=== PATIENT | female | born 1970 | race Caucasian/White ===

== ENCOUNTER 2020-02-21 09:50 | Inpatient (IN) ==
[2020-02-21] MEDS ORDERED: IOPAMIDOL 100 ML BOTTLE IV ONE ×2 (09:51→18:37)
[2020-02-21] MEDS ORDERED: 0.9 % SODIUM CHLORIDE 1,000 ML IV ONE (10:07)
[2020-02-21] MEDS ORDERED: fentaNYL 12 MCG PATCH TOPICAL ONE (10:27)
[2020-02-21] MEDS ORDERED: PROMETHAZINE 25 MG/ML VIAL IV ONE (10:27)
--- NOTE | 2020-02-21 10:56 | Emergency Department Note ---
Abdominal Pain HPI General Chief Complaint: Abdominal Pain Stated Complaint: abdominal pain Time Seen by Provider: 02/21/20 10:04 Source: EMS Mode of arrival: ambulatory Limitations: no limitations History of Present Illness HPI Narrative: Narrative: 49-year-old female with known metastatic lung cancer comes in for abdominal pain. She was recently discharged from [facility] after a bout of pneumonia last week. She was doing well on a fentanyl patch in the hospital but they did not discharge her on it and instead she is taking oxycodone for pain but this is incompletely controlling her pain. Her Zofran is not working for nausea and her omeprazole is not working for her heartburn. She is on chemotherapy at [facility]. She is requiring 5 L of oxygen via facemask at home-she continues to require that here. She has significant nausea and is having trouble keeping oral down. She has not taken her morning medicine yet Related Data Home Medications Medication Instructions Recorded Confirmed nystatin 100,000 unit/mL oral 500,000 unit PO ONCE ml 01/19/20 01/28/20 suspension oxygen #1 ea 01/19/20 01/28/20 rivaroxaban 20 mg tablet 20 mg PO QDAY 01/19/20 02/21/20 dexamethasone 6 mg PO BID 02/21/20 02/21/20 glipizide 5 mg PO QDAY 02/21/20 02/21/20 insulin glargine [Lantus Solostar 5 unit SUBCUT QPM 02/21/20 02/21/20 U-100 Insulin] insulin lispro 6 unit SUBCUT TID 02/21/20 02/21/20 melatonin 5 mg PO HS PRN 02/21/20 02/21/20 nicotine 1 patch TRANSDERMAL Q24H 02/21/20 02/21/20 omeprazole magnesium [Acid Curing Oven Attendant 20 mg PO QDAY 02/21/20 02/21/20 (omeprazole)] oxycodone 10 mg PO Q12H 02/21/20 02/21/20 torsemide 20 mg PO QDAY 02/21/20 02/21/20 Previous Rx's Medication Instructions Recorded ipratropium 0.5 mg-albuterol 3 mg 3 ml INHALATION BID PRN #90 ml 01/19/20 (2.5 mg base)/3 mL nebulization soln ondansetron 8 mg disintegrating 8 mg PO Q8H PRN #30 tab 01/19/20 tablet oxycodone-acetaminophen 5 mg-325 1 - 2 tab PO Q4-6HP PRN #30 tab 01/19/20 mg tablet spironolactone 25 mg tablet 25 mg PO QDAY #30 tab 01/20/20 Allergies Allergy/AdvReac Type Severity Reaction Status Date / Time quetiapine [From Seroquel] Allergy Severe Hallucinati Verified 02/21/20 09:56 ng Review of Systems ROS ROS Narrative: Narrative: All systems ED: reviewed and negative except as stated. [facility] Narrative Patient History Narrative: Narrative: Medical/Surgical/Family History All Active Problems (Updated 02/21/20 @ 16:09 by Rocky Zelaya MD) Pneumonia (Acute) Tachycardia (Acute) Pulmonary embolism (Chronic) Anxiety (Chronic) History of blood clots (Chronic 11/2019) Liver disease (Chronic ~11/2019) Anxiety (Acute) Cancer related pain (Acute) Metastatic non-small cell lung cancer (Acute) Lytic bone lesions on xray (Chronic) Chronic back pain greater than 3 months duration (Acute) Fatigue (Acute) Weakness of both legs (Acute) Reactive depression (Acute) Obesity (BMI 30-39.9) (Acute) COPD (chronic obstructive pulmonary disease) (Chronic) Chronic anticoagulation (Chronic) Obesity (BMI 30.0-34.9) (Chronic) Sepsis (Acute) Hypoxia (Acute) Pneumonia (Acute) Sinus tachycardia (Acute) Hyponatremia (Acute) Neutropenia (Acute) Anemia associated with chemotherapy (Acute) Hypoproteinemia (Acute) Pulmonary edema (Acute) Elevated BUN (Acute) Steroid-induced diabetes mellitus (Acute) Abdominal pain (Acute) Full code status (Acute) Medical History Acute dehydration (Inactive) Acute hypokalemia (Inactive) Anxiety (Chronic) Cellulitis (Resolved) Chronic anticoagulation (Chronic) Rivaroxaban for pulmonary emboli diagnosed November 2019 Constipation (Inactive) COPD (chronic obstructive pulmonary disease) (Chronic) History of blood clots (Chronic 11/2019) Liver disease (Chronic ~11/2019) Obesity (BMI 30.0-34.9) (Chronic) Pneumonia (Inactive) Respiratory failure (Inactive) Syncope and collapse (Resolved) Surgical History History of cholecystectomy (Resolved) Status post breast reduction (Resolved) Family History Father Diabetes Heart attack Sister Thyroid disease Social History Smoking Status: Former smoker Alcohol Intake Frequency: does not drink Substance Use: does not use Exam Narrative Narrative: Narrative: Appears to be quite uncomfortable and ill. She is wearing facemask oxygen and is moving around quite a bit. Normocephalic atraumatic. Conjunctive a clear sclerae white nonicteric. No nasal discharge or congestion. Oropharynx with dry buccal mucosa. Heart is tachycardic in the 140s per her rhythm strip. Does look like a sinus tachycardia. I am unable to hear a murmur. Lungs anteriorly appear to be moving air but I cannot hear well at the bases. Abdomen is soft grossly diffusely tender. No peritoneal signs or guarding. No pedal edema. +2 radial pulse. Alert and able to answer questions General Limitations: no limitations Course Vital Signs Vital signs: Vital Signs Temperature 97.0 F 02/21/20 09:51 Pulse Rate 145 H 02/21/20 09:51 Respiratory Rate 18 02/21/20 09:51 Blood Pressure 108/66 02/21/20 09:51 Pulse Oximetry (%) 100 02/21/20 09:51 Temperature 97.0 F 02/21/20 09:51 Pulse Rate 131 H 02/21/20 15:16 Respiratory Rate 19 02/21/20 15:34 Blood Pressure 123/81 02/21/20 15:31 Pulse Oximetry (%) 98 02/21/20 15:16 [facility] MDM Narrative Medical decision making narrative: Narrative: She has several problems here today including inadequate control of her cancer symptoms which include nausea pain heartburn. Complicating this she also has respiratory issues having recently recovered from pneumonia up at [facility]. Differential diagnosis includes worsening cancer plus or minus possibly worsening pneumonia and chemotherapy associated symptoms. We will order laboratory start IV fluids continue her oxygen check x-rays as well. We will start a fentanyl patch at 12 mcg and use Phenergan for nausea She is leukopenic and her lactic acid is up but we did give her IV fluids. Procalcitonin is elevated as well. Discussed case with Dr. Devi, oncologist up at [facility] in [place]. He advised me the patient just completed ch emotherapy and was at her mabrella in terms of leukopenia. She did receive a dose of Aranesp. He advised me to rule out sepsis/pneumonia-it is noted the patient is not febrile but her lactic acid and procalcitonin are up. X-ray could be interpreted as possible pneumonia. We will order CT scan of the chest abdomen and pelvis I reevaluated the patient and note that she is very somnolent-after taking her home medicine of oxycodone and getting a fentanyl patch here, the Phenergan for nausea has made her very sleepy. She is resting comfortably. Her heart beat is still in the 140s and 50s-her oncologist notes that she typically lives in the 120s and 30s so he is not overly concerned about that. I did write for a dose of Rocephin; we will get blood cultures as well Her pulse came down to the 120s and 30s after getting fluids but she started having pain again in her belly. Her oxygen levels came up as well to the high 90s and we were able to take her off supplemental oxygen. We will continue treatment of her pain. Repeat lactic acid after getting 2 L of fluid was still 3.2. CT scan showed pneumonia in addition to chronic findings-see full report I discussed the situation with Dr. Mendoza, our hospitalist, who agreed except the patient for further care and evaluation in the hospital. I also discussed the situation with the patient and her . They are agreeable for coming in with IV antibiotics for monitoring and treatment. Lab Data Lab results reviewed: Yes I reviewed the patient's lab results. Result diagrams: 02/21/20 10:28 02/21/20 10:28 Labs: Lab Results 02/21/20 02/21/20 02/21/20 Range/Units 10:27 10:28 10:28 WBC 0.5 L* (4.50-11.00) K/mcL RBC 3.56 L (3.59-5.38) M/mcL Hgb 10.2 L (11.2-15.7) g/dL Hct 30.2 L (34.1-44.9) % MCV 84.8 (80.0-100.0) fL MCH 28.7 (26.0-34.0) pg MCHC 33.8 (31.0-36.0) g/dL RDW 10.2 L (11.5-14.5) % Plt Count 78 L (140-440) K/mcL MPV 10.2 (7.4-10.4) fL Total Counted 100 Seg Neutrophils % 17 L (38-78) % Band Neutrophils % Not Reportable Lymphocytes % 78 H (15-49) % Monocytes % (Manual) 4 (1-12) % Reactive Lymphocytes 1 (0-2) % Platelet Estimate Decreased (NORMAL) RBC Morphology Normal (NORMAL) VBG Lactic Acid (0.5-2.0) mmol/L Sodium 134 (133-145) mmol/L Potassium 3.7 (3.3-5.1) mmol/L Chloride 98 (96-108) mmol/L Carbon Dioxide 19 L (22-30) mmol/L Anion Gap 17.0 H (8-16) BUN 35 H (6-20) mg/dl Creatinine 1.0 (0.6-1.1) mg/dl GFR Calculation 67 Glucose 249 H (70-105) mg/dL Calcium 8.6 (8.6-10.4) mg/dl Total Bilirubin 0.7 (0.0-1.0) mg/dL AST 10 (0-37) U/l ALT 26 (0-40) U/l Alkaline Phosphatase 101 (39-117) U/L Troponin T (0-0.03) ng/ml Total Protein 5.9 (5.9-8.4) gm/dL Albumin 3.1 L (3.2-5.2) gm/dL Globulin 2.8 (2.2-3.7) gm/dL Albumin/Globulin Ratio 1.1 (1.0-2.3) Lipase 8 (7-60) U/L Procalcitonin (<0.10) ng/mL Urine Color Urine Appearance Urine pH (5.0-9.0) Ur Specific Henderson (1.000-1.035) Urine Protein (NEG) mg/dL Urine Glucose (UA) (NEG) mg/dL Urine Ketones (NEG) mg/dL Urine Occult Blood (<0.03) mg/dL Urine Nitrate (NEG) Urine Bilirubin (NEG) mg/dL Urine Urobilinogen (NEG) mg/dL Ur Leukocyte Esterase (NEG) /uL Urine RBC (0-1) /hpf Urine WBC (0-4) /hpf Ur Squamous Epith Cells (0-4) /hpf Urine Bacteria (0) /hpf Hyaline Casts (0-2) /lpf Urine Mucus (0) /hpf Ur Culture Indicated? 02/21/20 02/21/20 02/21/20 Range/Units 10:30 10:32 10:40 WBC (4.50-11.00) K/mcL RBC (3.59-5.38) M/mcL Hgb (11.2-15.7) g/dL Hct (34.1-44.9) % MCV (80.0-100.0) fL MCH (26.0-34.0) pg MCHC (31.0-36.0) g/dL RDW (11.5-14.5) % Plt Count (140-440) K/mcL MPV (7.4-10.4) fL Total Counted Seg Neutrophils % (38-78) % Band Neutrophils % Lymphocytes % (15-49) % Monocytes % (Manual) (1-12) % Reactive Lymphocytes (0-2) % Platelet Estimate (NORMAL) RBC Morphology (NORMAL) VBG Lactic Acid 3.1 H (0.5-2.0) mmol/L Sodium (133-145) mmol/L Potassium (3.3-5.1) mmol/L Chloride (96-108) mmol/L Carbon Dioxide (22-30) mmol/L Anion Gap (8-16) BUN (6-20) mg/dl Creatinine (0.6-1.1) mg/dl GFR Calculation Glucose (70-105) mg/dL Calcium (8.6-10.4) mg/dl Total Bilirubin (0.0-1.0) mg/dL AST (0-37) U/l ALT (0-40) U/l Alkaline Phosphatase (39-117) U/L Troponin T 0.02 (0-0.03) ng/ml Total Protein (5.9-8.4) gm/dL Albumin (3.2-5.2) gm/dL Globulin (2.2-3.7) gm/dL Albumin/Globulin Ratio (1.0-2.3) Lipase (7-60) U/L Procalcitonin 4.01 H (<0.10) ng/mL Urine Color Urine Appearance Urine pH (5.0-9.0) Ur Specific Henderson (1.000-1.035) Urine Protein (NEG) mg/dL Urine Glucose (UA) (NEG) mg/dL Urine Ketones (NEG) mg/dL Urine Occult Blood (<0.03) mg/dL Urine Nitrate (NEG) Urine Bilirubin (NEG) mg/dL Urine Urobilinogen (NEG) mg/dL Ur Leukocyte Esterase (NEG) /uL Urine RBC (0-1) /hpf Urine WBC (0-4) /hpf Ur Squamous Epith Cells (0-4) /hpf Urine Bacteria (0) /hpf Hyaline Casts (0-2) /lpf Urine Mucus (0) /hpf Ur Culture Indicated? 02/21/20 02/21/20 Range/Units 14:15 14:43 WBC (4.50-11.00) K/mcL RBC (3.59-5.38) M/mcL Hgb (11.2-15.7) g/dL Hct (34.1-44.9) % MCV (80.0-100.0) fL MCH (26.0-34.0) pg MCHC (31.0-36.0) g/dL RDW (11.5-14.5) % Plt Count (140-440) K/mcL MPV (7.4-10.4) fL Total Counted Seg Neutrophils % (38-78) % Band Neutrophils % Lymphocytes % (15-49) % Monocytes % (Manual) (1-12) % Reactive Lymphocytes (0-2) % Platelet Estimate (NORMAL) RBC Morphology (NORMAL) VBG Lactic Acid 3.2 H (0.5-2.0) mmol/L Sodium (133-145) mmol/L Potassium (3.3-5.1) mmol/L Chloride (96-108) mmol/L Carbon Dioxide (22-30) mmol/L Anion Gap (8-16) BUN (6-20) mg/dl Creatinine (0.6-1.1) mg/dl GFR Calculation Glucose (70-105) mg/dL Calcium (8.6-10.4) mg/dl Total Bilirubin (0.0-1.0) mg/dL AST (0-37) U/l ALT (0-40) U/l Alkaline Phosphatase (39-117) U/L Troponin T (0-0.03) ng/ml Total Protein (5.9-8.4) gm/dL Albumin (3.2-5.2) gm/dL Globulin (2.2-3.7) gm/dL Albumin/Globulin Ratio (1.0-2.3) Lipase (7-60) U/L Procalcitonin (<0.10) ng/mL Urine Color Yellow Urine Appearance Clear Urine pH 5.0 (5.0-9.0) Ur Specific Henderson > 1.060 H (1.000-1.035) Urine Protein 30 A (NEG) mg/dL Urine Glucose (UA) 150 A (NEG) mg/dL Urine Ketones Neg (NEG) mg/dL Urine Occult Blood Neg (<0.03) mg/dL Urine Nitrate Neg (NEG) Urine Bilirubin Neg (NEG) mg/dL Urine Urobilinogen Neg (NEG) mg/dL Ur Leukocyte Esterase Neg (NEG) /uL Urine RBC 0 (0-1) /hpf Urine WBC 7 H (0-4) /hpf Ur Squamous Epith Cells 5 H (0-4) /hpf Urine Bacteria 0 (0) /hpf Hyaline Casts 1 (0-2) /lpf Urine Mucus Few (0) /hpf Ur Culture Indicated? No Radiology Data Radiology results reviewed: Yes I reviewed the patient's radiology results. Radiology results narrative: X-ray of the chest showed possible enlarging right upper lobe pneumonia X-ray of the abdomen shows no acute finding CT scan of the chest abdomen pelvis shows worsening pneumonia along with her lung mass. Query mass on the kidney Discharge Plan Patient/Caregiver Discharge Instructions Pt seen by [employer]/PA only: No Clinical Impression: Cancer related pain, Metastatic non-small cell lung cancer, Tachycardia Pneumonia Qualifiers: Pneumonia type: due to unspecified organism Laterality: bilateral Lung location: lower lobe of lung Qualified Code(s): J18.9 - Pneumonia, unspecified organism Patient Disposition: Xfer As Inpt ([facility]) Condition: Fair Follow up with: Deepali Trotter ARNP [Primary Care Provider] - Prescriptions: No Action Xarelto 20 mg tablet 20 mg PO QDAY RF: 0 nystatin 100,000 unit/mL suspension 500,000 unit PO ONCE RF: 0 ipratropium-albuterol 0.5 mg-3 mg(2.5 mg base)/3 mL solution for nebulization 3 ml INHALATION BID PRN (Reason: shortness of breath) Qty: 90 RF: 0 (DME) oxygen Qty: 1 RF: 0 oxycodone-acetaminophen [Percocet] 5-325 mg tablet 1 - 2 tab PO Q4-6HP PRN (Reason: pain (scale score 7-10)) Qty: 30 RF: 0 ondansetron 8 mg tablet,disintegrating 8 mg PO Q8H PRN (Reason: nausea and vomiting) Qty: 30 RF: 0 spironolactone 25 mg tablet 25 mg PO QDAY Qty: 30 RF: 0 dexamethasone 4 mg tablet 6 mg PO BID RF: 0 glipizide 5 mg Tablet 5 mg PO QDAY RF: 0 insulin lispro 100 unit/mL Insulin Pen 6 unit SUBCUT TID RF: 0 Lantus Solostar U-100 Insulin 100 unit/mL (3 mL) Insulin Pen 5 unit SUBCUT QPM RF: 0 melatonin 5 mg Tablet 5 mg PO HS PRN (Reason: Insomnia) RF: 0 nicotine 21 mg/24 hr Patch 24 Hour 1 patch TRANSDERMAL Q24H RF: 0 omeprazole magnesium [Acid Curing Oven Attendant (omeprazole)] 20 mg Capsule,Delayed Release(Dr/Ec) 20 mg PO QDAY RF: 0 oxycodone 10 mg Tablet,Oral Only,Ext.Rel.12 Hr 10 mg PO Q12H RF: 0 torsemide 20 mg Tablet 20 mg PO QDAY RF: 0
[2020-02-21 11:22] LABS: ALT/SGPT 26 U/l (0-40); AST/SGOT 10 U/l (0-37); Albumin 3.1 gm/dL (3.2-5.2); Albumin/Globulin Ratio 1.1 (1.0-2.3); Alkaline Phosphatase 101 U/L (39-117); Bilirubin,Total 0.7 mg/dL (0.0-1.0); Blood Urea Nitrogen 35 mg/dl (6-20); Calcium 8.6 mg/dl (8.6-10.4); Carbon Dioxide 19 mmol/L (22-30); Chloride 98 mmol/L (96-108); Globulin 2.8 gm/dL (2.2-3.7); Glomerular Filtration Rate 67; Glucose 249 mg/dL (70-105)
[2020-02-21 11:37] LABS: Hematocrit 30.2 % (34.1-44.9); Hemoglobin 10.2 g/dL (11.2-15.7); Mean Cell Volume 84.8 fL (80.0-100.0); Mean Corpuscular HGB Conc 33.8 g/dL (31.0-36.0); Platelet Count 78 K/mcL (140-440); RBC 3.56 M/mcL (3.59-5.38); Red Cell Distribution Width 10.2 % (11.5-14.5); WBC 0.5 K/mcL (4.50-11.00)
[2020-02-21] MEDS: 0.9 % SODIUM CHLORIDE 1,000 ML IV ONE ×2 (11:48→12:38)
[2020-02-21 12:05] LABS: Lymphocytes % 78 % (15-49); Mean Platelet Volume 10.2 fL (7.4-10.4); Monocytes % (Manual) 4 % (1-12); Platelet Estimate DECREASED (NORMAL); RBC Morphology NORMAL (NORMAL); Reactive Lymphocytes 1 % (0-2); Segmented Neutrophils % 17 % (38-78)
[2020-02-21] MEDS ORDERED: cefTRIAXone 2 GM in DEXTROSE 5% IN WATER 50 ML IV ONE (12:07)
--- NOTE | 2020-02-21 12:15 | XRay Report ---
CLINICAL INFORMATION: pneumonia COMPARISON: None. FINDINGS: Heart size, mediastinum and pulmonary vessels are normal. Small rounded pneumonia present in the right apex. Possible developing infiltrate in the left midlung. No effusion. IMPRESSION: Small rounded pneumonia in the right apex. Possible developing left midlung pneumonia. Interpreted and Authenticated by: Jett Perez 02/21/20
--- NOTE | 2020-02-21 12:15 | XRay Report ---
CLINICAL INFORMATION: abdominal pain COMPARISON: None. FINDINGS: The stool gas pattern is unremarkable. There is no free air, soft tissue mass, organomegaly or pathologic calcification. Vertebroplasty changes at L1 and L3 appreciated IMPRESSION: Normal abdomen Interpreted and Authenticated by: Jett Perez 02/21/20
--- NOTE | 2020-02-21 15:01 | Cat Scan Report ---
CLINICAL INFORMATION: Leukopenia pneumonia and possible sepsis COMPARISON: None. TECHNIQUE: Enteric contrast was utilized. 80 cc of Isovue-370 were injected intravenously, and 50 seconds later 2.5 mm helical slices were obtained from the lung apices through the subtrochanteric regions of the femurs. Following reconstruction, 2.5 mm sagittal, coronal and axial reformatted images were processed and reviewed at multiple windows and levels. 7 mm MIP reconstructions were obtained through the lungs to optimize nodule detection.The exam was performed using radiation dose optimization techniques including, but not limited to, automated exposure control, adjustment of the mA and/or kV according to patient size and use of iterative reconstruction technique. FINDINGS: Pulmonary parenchymal windows show 5.3 x 3.5 cm lobulated solid mass in the right hilum which encases and narrows the right upper lobe bronchus. It also partially encases the superior right bronchus intermedius. It is suspicious for primary lung carcinoma. A 7.5 mm right lower lobe nodule (image 57) , a 15 mm nodule in the lateral basilar segment of the left lower lobe (image 74) and a 9 mm nodule in the medial basilar segment of the left lower lobe are also seen. Large groundglass/alveolar infiltrate throughout the posterior right lower lobe and moderate patchy groundglass infiltrates scattered throughout the right upper and middle lobes are appreciated. On the left side, there is a large groundglass/alveolar infiltrate in the left lower lobe including the superior, medial posterior and lateral basilar segments. No effusions. The mediastinal windows show the pulmonary arteries are suboptimally opacified, but no gross evidence of embolus. Thoracic aorta is normal in diameter. Moderately enlarged lymph nodes in the right hilum and the inferior mediastinum including the AP window, subcarinal, pericarinal region AP window and azygous region ranging up to 15 mm. These may represent a combination of benign reactive lymph nodes and metastatic adenopathy. There is a 9 mm diverticulum projecting from the right lateral wall the mid thoracic esophagus. The esophagus is otherwise normal. The heart is normal in size - no plaque in the coronary arteries. Abdominal images show minimal fatty change within the liver, but no focal lesions. The gallbladder is surgically absent. Intrahepatic and common bile ducts are normal caliber: CBD is 5 mm. There is a vague 20 mm low-attenuation lesion inferior pole the right kidney may represent primary renal cell carcinoma. The remainder of both kidneys, adrenal glands, spleen, pancreas and aorta, including aortic branches are normal in size and duration attenuation without focal lesion. A few mildly enlarged retroperitoneal lymph nodes in the periaortic and pericaval region ranging up to 16 mm. No free air or free fluid. Pelvic images show anteflexed uterus which is normal in size: 7 x 4 cm. 16 mm cyst seen in the left ovary a 8 mm cyst seen in the right ovary. The stomach, small large bowel are normal in caliber. There is equivocal thickening of the wall and plicae circulares folds within multiple jejunal loops in the left mid abdomen compatible with submucosal edema or. No other abnormality within the small or large bowel. The appendix is unremarkable. Stomach is grossly normal. Bone windows show no metastases or other significant osseous abnormality. Vertebroplasty has arrested mild L1 and L3 compression fractures. There are 5-6 nodules within Camper's fascia which range up to 20 mm. These likely represent epidermoid or dermoid cysts. Metastases are possible less likely IMPRESSION: 1. 5.3 cm lobulated right hilar mass encasing and narrowing the upper lobe bronchus and partially encasing the bronchus intermedius. It is suspicious for primary lung carcinoma. Moderately enlarged lymph nodes in the right hilum and lower mediastinum are either metastatic or represent benign reactive adenopathy. Scattered bilateral lower lobe nodules are more likely granulomas than metastases. Scattered nodules within Camper's fascia of the anterior abdominal wall are more likely benign epidermoid cysts rather than metastases 2. Large alveolar infiltrate throughout the posterior right lower lobe. Moderate patchy infiltrates in the right upper and middle lobes. Large alveolar infiltrate throughout the posterior left lower lobe including superior, medial basilar and posterior basilar segments. Suspect aspiration or pneumonia. 3. 20 mm low-attenuation lesion inferior pole the right kidney. This could potentially represent primary renal cell carcinoma or metastases. Suggest ultrasound to exclude a cyst. Interpreted and Authenticated by: Jett Perez 02/21/20
[2020-02-21 15:45] LABS: Appearance,Urine CLEAR; Bacteria,Urine 0 /hpf (0); Bilirubin,Urine NEG (NEG); Color,Urine YELLOW; Culture Indicated,Urine NO; Glucose,Urine (UA) 150 mg/dL (NEG); Ketones,Urine NEG (NEG); Leukocyte Esterase,Urine NEG /uL (NEG); Mucus,Urine FEW /hpf (0); Nitrate,Urine NEG (NEG); Protein,Urine 30 mg/dL (NEG); Specific Gravity,Urine > 1.060 (1.000-1.035); Urine Blood NEG mg/dL (<0.03); Urine Hyaline Cast 1 /lpf (0-2); Urine RBC 0 /hpf (0-1); Urine Squamous Epithelial Cell 5 /hpf (0-4); Urine WBC 7 /hpf (0-4); Urobilinogen,Urine NEG (NEG)
[2020-02-21] MEDS ORDERED: HYDROmorphone 0.5 MG/0.5 ML SYRINGE IV PRN (16:08)
[2020-02-21] MEDS ORDERED: IPRATROPIUM/ALBUTEROL 3 ML AMPUL.NEB NEB PRN ×2 (17:16→18:37)
[2020-02-21] MEDS ORDERED: ONDANSETRON 4 MG/2 ML VIAL IV PRN ×2 (17:16→18:37)
[2020-02-21] MEDS ORDERED: morphine 4 MG/ML VIAL IV PRN (17:16)
[2020-02-21] MEDS ORDERED: ACETAMINOPHEN 325 MG TABLET PO PRN ×2 (17:16→18:37)
[2020-02-21] MEDS ORDERED: VANCOMYCIN PER PHARMACY IV ONE ×2 (17:24→18:37)
[2020-02-21] MEDS ORDERED: traMADol 50 MG TABLET PO PRN (17:24)
[2020-02-21] MEDS ORDERED: NON FORMULARY MEDICATION 1 DOSE MISCELL (Melatonin 5 MG) PO PRN (17:28)
[2020-02-21] MEDS ORDERED: PIPERACILLIN SODIUM/TAZOBACTAM 3.375 GM in DEXTROSE 5% IN WATER 50 ML IV SCH (17:30)
[2020-02-21] MEDS ORDERED: RIVAROXABAN 20 MG TABLET PO SCH (17:30)
[2020-02-21] MEDS ORDERED: fentaNYL 12 MCG PATCH TOPICAL SCH (17:30)
[2020-02-21] MEDS ORDERED: DEXTROSE 50% 50 ML VIAL IV PRN ×2 (17:30→18:37)
[2020-02-21] MEDS ORDERED: DEXTROSE 31 GM ORAL.SUSP PO PRN ×2 (17:30→18:37)
[2020-02-21] MEDS ORDERED: 0.9 % SODIUM CHLORIDE 1,000 ML IV SCH (17:30)
--- NOTE | 2020-02-21 17:34 | Internal Med History&Physical ---
HPI History of Present Illness Patient information: Note initiated : 02/21/20 at 5:33 pm Service Date, if different from initiated Date: [] Patient: Shirley Novoa 49 y/o F admitted on for abdominal pain. Chief Complaint: [] History of present illness: Ms. Novoa is a 49 year old F with a past medical history of metastatic lung cancer, history of pulmonary embolisms, and COPD who presented to the ER due to abdominal pain and diarrhea x 2 days. As per patient and , she started to have upper abdominal pain associated with nausea, vomiting, and diarrhea. The pain is constant, sharp in nature and 4-8 out of 10 in severity. No radiation. She has been having 4-5 times bowel movements a day with the very loose yellow stool. Patient got pneumonia 3 weeks ago for which patient was hospitalized to [facility] in [place] for 2 weeks. Over there she was given IV antibiotics. She was just discharged to home last week. She was diagnosed with metastatic non-small cell lung cancer in October 2019. She received chemotherapy recently. In the ER, chest x-ray showed bilateral pneumonia. When I saw this patient in the ER, other than the symptoms mentioned above, she also complained of fatigue. Otherwise she denied headache, dizziness, chest pain, dysuria, or changes in vision. Review of Systems All systems: reviewed and no additional remarkable complaints except as stated PFSH PFSH All Active Problems Pneumonia (Acute) Tachycardia (Acute) Pulmonary embolism (Chronic) Anxiety (Chronic) History of blood clots (Chronic 11/2019) Liver disease (Chronic ~11/2019) Anxiety (Acute) Cancer related pain (Acute) Metastatic non-small cell lung cancer (Acute) Lytic bone lesions on xray (Chronic) Chronic back pain greater than 3 months duration (Acute) Fatigue (Acute) Weakness of both legs (Acute) Reactive depression (Acute) Obesity (BMI 30-39.9) (Acute) COPD (chronic obstructive pulmonary disease) (Chronic) Chronic anticoagulation (Chronic) Obesity (BMI 30.0-34.9) (Chronic) Sepsis (Acute) Hypoxia (Acute) Pneumonia (Acute) Sinus tachycardia (Acute) Hyponatremia (Acute) Neutropenia (Acute) Anemia associated with chemotherapy (Acute) Hypoproteinemia (Acute) Pulmonary edema (Acute) Elevated BUN (Acute) Steroid-induced diabetes mellitus (Acute) Abdominal pain (Acute) Full code status (Acute) Medical History Acute dehydration (Inactive) Acute hypokalemia (Inactive) Anxiety (Chronic) Cellulitis (Resolved) Chronic anticoagulation (Chronic) Rivaroxaban for pulmonary emboli diagnosed November 2019 Constipation (Inactive) COPD (chronic obstructive pulmonary disease) (Chronic) History of blood clots (Chronic 11/2019) Liver disease (Chronic ~11/2019) Obesity (BMI 30.0-34.9) (Chronic) Pneumonia (Inactive) Respiratory failure (Inactive) Syncope and collapse (Resolved) Surgical History History of cholecystectomy (Resolved) Status post breast reduction (Resolved) Family History Father Diabetes Heart attack Sister Thyroid disease Social History marital status: smoking status: Former smoker alcohol intake frequency: does not drink substance use type: does not use MEDS/ALLERGIES Home Medications and Allergies Home Medications Medication Instructions Recorded Confirmed Type ipratropium 0.5 mg-albuterol 3 mg 3 ml INHALATION BID PRN #90 ml 01/19/20 02/21/20 Rx (2.5 mg base)/3 mL nebulization soln nystatin 100,000 unit/mL oral 500,000 unit PO ONCE ml 01/19/20 01/28/20 History suspension ondansetron 8 mg disintegrating 8 mg PO Q8H PRN #30 tab 01/19/20 02/21/20 Rx tablet oxycodone-acetaminophen 5 mg-325 1 - 2 tab PO Q4-6HP PRN #30 tab 01/19/20 02/21/20 Rx mg tablet oxygen #1 ea 01/19/20 01/28/20 History rivaroxaban 20 mg tablet 20 mg PO QDAY 01/19/20 02/21/20 History spironolactone 25 mg tablet 25 mg PO QDAY #30 tab 01/20/20 02/21/20 Rx dexamethasone 6 mg PO BID 02/21/20 02/21/20 History glipizide 5 mg PO QDAY 02/21/20 02/21/20 History insulin glargine [Lantus Solostar 5 unit SUBCUT QPM 02/21/20 02/21/20 History U-100 Insulin] insulin lispro 6 unit SUBCUT TID 02/21/20 02/21/20 History melatonin 5 mg PO HS PRN 02/21/20 02/21/20 History nicotine 1 patch TRANSDERMAL Q24H 02/21/20 02/21/20 History omeprazole magnesium [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 20 mg PO QDAY 02/21/20 02/21/20 History (omeprazole)] oxycodone 10 mg PO Q12H 02/21/20 02/21/20 History torsemide 20 mg PO QDAY 02/21/20 02/21/20 History Allergies Allergy/AdvReac Type Severity Reaction Status Date / Time quetiapine [From Seroquel] Allergy Severe Hallucinati Verified 02/21/20 09:56 ng EXAM Constitutional Vitals: Temp Pulse Resp BP Pulse Ox 97.0 F 139 H 20 110/75 100 02/21/20 09:51 02/21/20 17:01 02/21/20 17:01 02/21/20 17:01 02/21/20 17:01 Additional findings Additional findings: General -sleepy and lethargic Eyes - PERRLA, EOM intact ENT no rhinorrhea, no noticeable or palpable swelling, no redness or rash around throat or on face Neck supple, no JVD, no thyromegaly Respiratory: Lungs -coarse breathing sounds and crackles. Cardiovascular - RRR no m/r/g, GI - Normal bowel sounds, no distended, soft. Extremeties - No edema, cyanosis or clubbing Hemo/lymphatic/immune no lymphadenopathy Neurological Alert but lethargic, no focal neurological deficits. Psychiatry flat affect DATA Data Completed and Pending Labs: Labs from last 24 hours 02/21/20 02/21/20 02/21/20 14:43 14:15 10:40 WBC RBC Hgb Hct MCV MCH MCHC RDW Plt Count MPV Total Counted Seg Neutrophils % Band Neutrophils % Lymphocytes % Monocytes % (Manual) Reactive Lymphocytes Platelet Estimate RBC Morphology VBG Lactic Acid 3.2 H 3.1 H Sodium Potassium Chloride Carbon Dioxide Anion Gap BUN Creatinine GFR Calculation Glucose Calcium Total Bilirubin AST ALT Alkaline Phosphatase Troponin T Total Protein Albumin Globulin Albumin/Globulin Ratio Lipase Procalcitonin Urine Color Yellow Urine Appearance Clear Urine pH 5.0 Ur Specific [place] > 1.060 H Urine Protein 30 A Urine Glucose (UA) 150 A Urine Ketones Neg Urine Occult Blood Neg Urine Nitrate Neg Urine Bilirubin Neg Urine Urobilinogen Neg Ur Leukocyte Esterase Neg Urine RBC 0 Urine WBC 7 H Ur Squamous Epith Cells 5 H Urine Bacteria 0 Hyaline Casts 1 Urine Mucus Few Ur Culture Indicated? No 02/21/20 02/21/20 02/21/20 10:32 10:30 10:28 WBC RBC Hgb Hct MCV MCH MCHC RDW Plt Count MPV Total Counted Seg Neutrophils % Band Neutrophils % Lymphocytes % Monocytes % (Manual) Reactive Lymphocytes Platelet Estimate RBC Morphology VBG Lactic Acid Sodium 134 Potassium 3.7 Chloride 98 Carbon Dioxide 19 L Anion Gap 17.0 H BUN 35 H Creatinine 1.0 GFR Calculation 67 Glucose 249 H Calcium 8.6 Total Bilirubin 0.7 AST 10 ALT 26 Alkaline Phosphatase 101 Troponin T 0.02 Total Protein 5.9 Albumin 3.1 L Globulin 2.8 Albumin/Globulin Ratio 1.1 Lipase Procalcitonin 4.01 H Urine Color Urine Appearance Urine pH Ur Specific [place] Urine Protein Urine Glucose (UA) Urine Ketones Urine Occult Blood Urine Nitrate Urine Bilirubin Urine Urobilinogen Ur Leukocyte Esterase Urine RBC Urine WBC Ur Squamous Epith Cells Urine Bacteria Hyaline Casts Urine Mucus Ur Culture Indicated? 02/21/20 02/21/20 10:28 10:27 WBC 0.5 L* RBC 3.56 L Hgb 10.2 L Hct 30.2 L MCV 84.8 MCH 28.7 MCHC 33.8 RDW 10.2 L Plt Count 78 L MPV 10.2 Total Counted 100 Seg Neutrophils % 17 L Band Neutrophils % Not Reportable Lymphocytes % 78 H Monocytes % (Manual) 4 Reactive Lymphocytes 1 Platelet Estimate Decreased RBC Morphology Normal VBG Lactic Acid Sodium Potassium Chloride Carbon Dioxide Anion Gap BUN Creatinine GFR Calculation Glucose Calcium Total Bilirubin AST ALT Alkaline Phosphatase Troponin T Total Protein Albumin Globulin Albumin/Globulin Ratio Lipase 8 Procalcitonin Urine Color Urine Appearance Urine pH Ur Specific [place] Urine Protein Urine Glucose (UA) Urine Ketones Urine Occult Blood Urine Nitrate Urine Bilirubin Urine Urobilinogen Ur Leukocyte Esterase Urine RBC Urine WBC Ur Squamous Epith Cells Urine Bacteria Hyaline Casts Urine Mucus Ur Culture Indicated? A/P Narrative A/P Narrative: 1. Acute and chronic hypoxic respiratory failure Pulse ox Oxygen therapy, keep oxygen saturation greater than 92% 2. Pneumonia, HCA/CAP/aspiration? CT chest - "Large alveolar infiltrate throughout the posterior right lower lobe. Moderate patchy infiltrates in the right upper and middle lobes. Large alveolar infiltrate throughout the posterior left lower lobe including superior, medial basilar and posterior basilar segments. Suspect aspiration or pneumonia" Blood culture Sputum culture MRSA screen Vanco (dosing by pharmacy) and Zosyn 3. Metastatic non-small cell lung cancer CT chest, abdomen and pelvis showed evidence of metastatic cancer Follow with PCP and oncologist 4. Hx of PE on chronic anticoagulation Continue Xarelto 5. COPD Presumed stable Inhalers 6. 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 Continue dexamethasone Diabetic diet Continue Lantus 5 units daily Insulin sliding scale Glipizide is on hold 7. Acute gastroenteritis Stool study including fever IV fluid 8. Dehydration 2 L normal saline was given in the ER Continue IV fluid 9. Pancytopenia - WBC 0.5 Reverse precaution Repeat a CBC in the morning 10. DVT prophylaxis: On Xarelto 11. 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
[2020-02-21] MEDS ORDERED: MELATONIN 3 MG TABLET PO PRN (17:45)
[2020-02-21] MEDS ORDERED: VANCOMYCIN PER PHARMACY IV SCH ×2 (17:45→18:37)
[2020-02-21] MEDS ORDERED: VANCOMYCIN 1,500 MG in 0.9 % SODIUM CHLORIDE 500 ML IV SCH (19:00)
[2020-02-21] MEDS: 0.9 % SODIUM CHLORIDE 1,000 ML IV SCH (19:02)
[2020-02-21] MEDS ORDERED: SENNOSIDES 1 TABLET PO SCH (21:00)
[2020-02-21] MEDS ORDERED: INSULIN LISPRO 1 UNIT/0.01 ML UNIT SQ SCH (21:00)
[2020-02-21] MEDS ORDERED: DEXAMETHASONE 4 MG TABLET PO SCH (21:00)
[2020-02-21] MEDS ORDERED: DOCUSATE SODIUM 100 MG CAPSULE PO SCH (21:00)
[2020-02-21] MEDS ORDERED: INSULIN GLARGINE, HUMAN 1 UNIT/0.01 ML SQ SCH (21:00)
[2020-02-21] MEDS: VANCOMYCIN 1,500 MG in 0.9 % SODIUM CHLORIDE 500 ML IV SCH (21:21)
[2020-02-21] MEDS: METOPROLOL TARTRATE 25 MG TABLET PO SCH (21:26)
[2020-02-21] MEDS: DEXAMETHASONE 4 MG TABLET PO SCH (21:27)
[2020-02-21] MEDS: SENNOSIDES 1 TABLET PO SCH (21:27)
[2020-02-21] MEDS: 0.9 % SODIUM CHLORIDE 10 ML SYRINGE IV SCH (21:27)
[2020-02-21] MEDS: DOCUSATE SODIUM 100 MG CAPSULE PO SCH (21:27)
[2020-02-21] MEDS: INSULIN GLARGINE, HUMAN 1 UNIT/0.01 ML SQ SCH (21:42)
[2020-02-21] MEDS: INSULIN LISPRO 1 UNIT/0.01 ML UNIT SQ SCH (21:43)
[2020-02-21] MEDS ORDERED: 0.9 % SODIUM CHLORIDE 10 ML SYRINGE IV SCH (22:00)
[2020-02-21] MEDS ORDERED: METOPROLOL TARTRATE 5 MG/5 ML VIAL IV ONE ×2 (23:36→23:48)
[2020-02-21] MEDS ORDERED: ZOLPIDEM 5 MG TABLET PO ONE (23:37)
[2020-02-21] MEDS ORDERED: ZOLPIDEM 5 MG TABLET ONE (23:48)
[2020-02-21] MEDS: PIPERACILLIN SODIUM/TAZOBACTAM 3.375 GM in DEXTROSE 5% IN WATER 50 ML IV SCH (23:59)
[2020-02-22] MEDS: 0.9 % SODIUM CHLORIDE 10 ML SYRINGE IV SCH ×3 (04:15→21:51)
[2020-02-22] MEDS: PIPERACILLIN SODIUM/TAZOBACTAM 3.375 GM in DEXTROSE 5% IN WATER 50 ML IV SCH ×4 (06:01→23:58)
[2020-02-22 07:08] LABS: ALT/SGPT 20 U/l (0-40); AST/SGOT 9 U/l (0-37); Albumin 2.3 gm/dL (3.2-5.2); Albumin/Globulin Ratio 0.7 (1.0-2.3); Alkaline Phosphatase 81 U/L (39-117); Bilirubin,Total 0.4 mg/dL (0.0-1.0); Blood Urea Nitrogen 26 mg/dl (6-20); Calcium 8.2 mg/dl (8.6-10.4); Carbon Dioxide 20 mmol/L (22-30); Chloride 99 mmol/L (96-108); Globulin 3.1 gm/dL (2.2-3.7); Glomerular Filtration Rate 102; Glucose 140 mg/dL (70-105); Phosphorous 3.1 mg/dL (2.7-4.5)
[2020-02-22] MEDS ORDERED: PANTOPRAZOLE 40 MG TABLET PO SCH (07:30)
[2020-02-22] MEDS: PANTOPRAZOLE 40 MG TABLET PO SCH (07:42)
[2020-02-22] MEDS: INSULIN LISPRO 1 UNIT/0.01 ML UNIT SQ SCH ×4 (07:45→21:47)
[2020-02-22] MEDS: 0.9 % SODIUM CHLORIDE 1,000 ML IV SCH ×4 (07:46→21:51)
[2020-02-22 07:47] LABS: Basophils # (Auto) 0 K/mcL (0.00-0.30); Basophils % (Auto) 0 % (0.0-2.0); Eosinophils # (Auto) 0 K/mcL (0.00-0.70); Eosinophils % (Auto) 0 % (0.0-7.0); Granulocytes % (Auto) 13.3 % (38.0-78.0); Hematocrit 23.4 % (34.1-44.9); Hemoglobin 7.8 g/dL (11.2-15.7); Lymphocytes # (Auto) 0.34 K/mcL (1.50-4.80); Lymphocytes % (Auto) 75.6 % (15.5-49.0); Mean Cell Volume 85.7 fL (80.0-100.0); Mean Corpuscular HGB Conc 33.3 g/dL (31.0-36.0); Mean Platelet Volume 10.5 fL (7.4-10.4); Monocytes # (Auto) 0.02 K/mcL (0.10-0.90); Monocytes % (Auto) 4.4 % (1.0-12.0); Platelet Count 51 K/mcL (140-440); RBC 2.73 M/mcL (3.59-5.38); Red Cell Distribution Width 16.4 % (11.5-14.5); WBC 0.5 K/mcL (4.50-11.00)
[2020-02-22] MEDS ORDERED: MAGNESIUM SULFATE 8.12 MEQ in DEXTROSE 5% IN WATER 50 ML IV ONE (08:00)
[2020-02-22 08:27] LABS: Estimated Average Glucose(eAG) 189 mg/dL; Hemoglobin A1C 8.2 % HGB (4.0-6.0)
[2020-02-22] MEDS: VANCOMYCIN 1,500 MG in 0.9 % SODIUM CHLORIDE 500 ML IV SCH ×2 (09:40→21:47)
[2020-02-22] MEDS: MUPIROCIN OINT 2% 22GM NARES SCH ×2 (09:41→21:48)
[2020-02-22] MEDS: traMADol 50 MG TABLET PO PRN ×2 (09:41→16:55)
[2020-02-22] MEDS: DEXAMETHASONE 4 MG TABLET PO SCH ×2 (09:42→21:48)
[2020-02-22] MEDS: METOPROLOL TARTRATE 25 MG TABLET PO SCH ×2 (09:43→21:49)
[2020-02-22] MEDS: RIVAROXABAN 20 MG TABLET PO SCH (09:43)
[2020-02-22] MEDS: DOCUSATE SODIUM 100 MG CAPSULE PO SCH ×2 (09:43→21:51)
--- NOTE | 2020-02-22 11:24 | Internal Med Progress Note ---
SUBJECTIVE Subjective Patient information: Note initiated : 02/22/20 at 11:18 am Service Date, if different from initiated Date: [] Patient: Shirley Novoa 49 y/o F admitted on 02/21/20 for abdominal pain. Chief Complaint: [] History of present illness: Ms. Novoa is a 49 year old F with a past medical history of metastatic lung cancer, history of pulmonary embolisms, and COPD who presented to the ER due to abdominal pain and diarrhea x 2 days. As per patient and , she started to have upper abdominal pain associated with nausea, vomiting, and diarrhea. The pain is constant, sharp in nature and 4-8 out of 10 in severity. No radiation. She has been having 4-5 times bowel movements a day with the very loose yellow stool. Patient got pneumonia 3 weeks ago for which patient was hospitalized to [facility] in [place] for 2 weeks. Over there she was given IV antibiotics. She was just discharged to home last week. She was diagnosed with metastatic non-small cell lung cancer in October 2019. She received chemotherapy recently. In the ER, chest x-ray showed bilateral pneumonia. When I saw this patient in the ER, other than the symptoms mentioned above, she also complained of fatigue. Otherwise she denied headache, dizziness, chest pain, dysuria, or changes in vision. 02/21 Patient still feels tired but better than yesterday. Denies fever, chills. Patient still has diarrhea. Patient had one bowel movement with loose stool this morning. C. difficile negative Tachycardia >100. WBC 0.5, platelet 51 MRSA screen positive -precaution contact and decolonization Review of Systems All systems: reviewed and no additional remarkable complaints except as stated Constitutional Vitals: Vital Signs Temp Pulse Resp BP Pulse Ox 97.3 F 102 H 20 103/55 92 02/22/20 07:28 02/22/20 07:45 02/22/20 07:45 02/22/20 07:28 02/22/20 07:45 Period Temp Pulse Resp BP Sys/Plaza Pulse Ox Last 24 Hr 97.3 F-98.7 F 102-150 14-26 95-125/55-88 92-100 Intake and Output 02/21/20 02/22/20 02/22/20 21:59 05:59 13:59 Intake Total 1000 1625 1050 Output Total 200 685 500 Balance 800 940 550 Weight 82.871 kg Intake & Output: Intake & Output 02/21/20 02/22/20 02/22/20 21:59 05:59 13:59 Intake Total 1000 1625 1050 Output Total 200 685 500 Balance 800 940 550 Weight 82.871 kg Intake: IV 3496 988 5418 Sodium Chloride 0.9% 1,000 ml @ 1000 1000 100 mls/hr IV .Q10H [facility] Rx#: [id number] Zosyn 3.375 gm In Dextrose 5% 50 50 in Water 50 ml @ 100 mls/hr IV Q6H [facility] Rx#:[id number] Vancomycin 1,500 mg In Sodium 500 Chloride 0.9% 500 ml @ 333.3 mls/hr IV Q12H [facility] Rx#: [id number] Oral 1075 Output: Void Amount 200 375 150 Urine/Stool Mix 350 Stool 310 Other: Urine Appearance Clear Clear Urine Color Dark Michelle Dark Michelle Dark Yellow Urine Odor Strong Stool Size Small Moderate Stool Color Brown Brown Black Green Stool Consistency Liquid Liquid # Bowel Movements 1 Additional findings Additional findings: General -sleepy and lethargic Eyes - PERRLA, EOM intact ENT no rhinorrhea, no noticeable or palpable swelling, no redness or rash around throat or on face Neck supple, no JVD, no thyromegaly Respiratory: Lungs -coarse breathing sounds and crackles. Cardiovascular - RRR no m/r/g, GI - Normal bowel sounds, no distended, soft, diffuse tenderness (significantly improved) Extremeties - No edema, cyanosis or clubbing Hemo/lymphatic/immune no lymphadenopathy Neurological Alert but lethargic, no focal neurological deficits. Psychiatry flat affect OBJ DATA Labs CBC & Chem 7: 02/22/20 05:25 02/22/20 05:25 Labs: Abnormal Lab Results 02/22/20 02/22/20 02/21/20 05:25 05:25 14:43 WBC 0.5 L* RBC 2.73 L Hgb 7.8 L Hct 23.4 L RDW 16.4 H Plt Count 51 L MPV 10.5 H Gran % 13.3 L Lymph % (Auto) 75.6 H Gran # 0.06 L* Lymph # (Auto) 0.34 L [place] # (Auto) 0.02 L Seg Neutrophils % Lymphocytes % VBG Lactic Acid Carbon Dioxide 20 L Anion Gap BUN 26 H Glucose 140 H Hemoglobin A1c 8.2 H Calcium 8.2 L Total Protein 5.4 L Albumin 2.3 L Albumin/Globulin Ratio 0.7 L Procalcitonin Ur Specific [place] > 1.060 H Urine Protein 30 A Urine Glucose (UA) 150 A Urine WBC 7 H Ur Squamous Epith Cells 5 H 02/21/20 02/21/20 02/21/20 14:15 10:40 10:30 WBC RBC Hgb Hct RDW Plt Count MPV Gran % Lymph % (Auto) Gran # Lymph # (Auto) [place] # (Auto) Seg Neutrophils % Lymphocytes % VBG Lactic Acid 3.2 H 3.1 H Carbon Dioxide Anion Gap BUN Glucose Hemoglobin A1c Calcium Total Protein Albumin Albumin/Globulin Ratio Procalcitonin 4.01 H Ur Specific [place] Urine Protein Urine Glucose (UA) Urine WBC Ur Squamous Epith Cells 02/21/20 02/21/20 10:28 10:28 WBC 0.5 L* RBC 3.56 L Hgb 10.2 L Hct 30.2 L RDW 10.2 L Plt Count 78 L MPV Gran % Lymph % (Auto) Gran # Lymph # (Auto) [place] # (Auto) Seg Neutrophils % 17 L Lymphocytes % 78 H VBG Lactic Acid Carbon Dioxide 19 L Anion Gap 17.0 H BUN 35 H Glucose 249 H Hemoglobin A1c Calcium Total Protein Albumin 3.1 L Albumin/Globulin Ratio Procalcitonin Ur Specific [place] Urine Protein Urine Glucose (UA) Urine WBC Ur Squamous Epith Cells Meds: Medications Acetaminophen (Tylenol) 650 mg PO Q6HP PRN; Protocol PRN Reason: Per Pain Protocol/Fever > 101 Albuterol/Ipratropium (Duoneb) 3 ml NEB Q6HP PRN PRN Reason: Shortness Of Breath Dexamethasone (Decadron) 6 mg PO BID [facility] Last Admin: 02/22/20 09:42 Dose: 6 mg Documented by: Dextrose (Dextrose 50%) 0 ml IV UD PRN PRN Reason: Hypoglycemia Diagnostic Test (Pha) (Accu-Chek) 1 each FS ACHS [facility] Last Admin: 02/22/20 07:43 Dose: 1 each Documented by: Docusate Sodium (Colace) 100 mg PO BID [facility] Last Admin: 02/22/20 09:43 Dose: Not Given Documented by: Fentanyl (Duragesic) 12 mcg TOPICAL Q72H [facility] Glucose (Insta-Glucose) 15 gm PO PRN PRN PRN Reason: Hypoglycemia Sodium Chloride (Sodium Chloride 0.9%) 1,000 mls @ 100 mls/hr IV .Q10H [facility] Last Admin: 02/22/20 07:46 Dose: 100 mls/hr Documented by: Piperacillin Sod/Tazobactam (Sod 3.375 gm/ Dextrose) 50 mls @ 100 mls/hr IV Q6H [facility]; Protocol Last Infusion: 02/22/20 06:31 Dose: Infused Documented by: Vancomycin HCl 1,500 mg/ (Sodium Chloride) 500 mls @ 333.3 mls/hr IV Q12H [facility] Last Admin: 02/22/20 09:40 Dose: 333.3 mls/hr Documented by: Insulin Glargine (Lantus) 5 unit SQ QPM [facility] Last Admin: 02/21/20 21:42 Dose: 5 units Documented by: Insulin Human Lispro (Humalog) 0 unit SQ ACHS [facility]; Protocol Last Admin: 02/22/20 07:45 Dose: 1 units Documented by: Melatonin (Melatonin 3mg Tablet) 6 mg PO HSP PRN PRN Reason: Insomnia Metoprolol Tartrate (Lopressor) 12.5 mg PO BID [facility] Last Admin: 02/22/20 09:43 Dose: 12.5 mg Documented by: Morphine Sulfate (Morphine) 2 mg IV Q4HP PRN; Protocol PRN Reason: Per Pain Protocol Mupirocin (Bactroban Oint 2%) 1 dose NARES BID [facility] Last Admin: 02/22/20 09:41 Dose: 1 dose Documented by: Ondansetron HCl (Zofran) 4 mg IV Q6HP PRN PRN Reason: Nausea And Vomiting Pantoprazole Sodium (Protonix) 40 mg PO QAMAC [facility] Last Admin: 02/22/20 07:42 Dose: Not Given Documented by: Rivaroxaban (Xarelto) 20 mg PO QDAY [facility] Last Admin: 02/22/20 09:43 Dose: 20 mg Documented by: Senna (Senokot) 2 tab PO HS [facility] Last Admin: 02/21/20 21:27 Dose: 2 tab Documented by: Sodium Chloride (Saline Flush) 10 ml IV Q8 [facility] Last Admin: 02/22/20 04:15 Dose: Not Given Documented by: Tramadol HCl (Ultram) 50 mg PO Q6HP PRN; Protocol PRN Reason: Pain Last Admin: 02/22/20 09:41 Dose: 50 mg Documented by: Vancomycin HCl (Vancomycin Per Pharmacy) 1 order IV UD [facility]; Protocol A/P Narrative A/P Narrative: 1. Acute and chronic hypoxic respiratory failure Pulse ox Oxygen therapy, keep oxygen saturation greater than 92% 2. Pneumonia, HCA/CAP/aspiration? CT chest - "Large alveolar infiltrate throughout the posterior right lower lobe. Moderate patchy infiltrates in the right upper and middle lobes. Large alveolar infiltrate throughout the posterior left lower lobe including superior, medial basilar and posterior basilar segments. Suspect aspiration or pneumonia" Blood culture no growth Sputum culture pending MRSA screen positive -decolonization Vanco (dosing by pharmacy) and Zosyn 3. Metastatic non-small cell lung cancer CT chest, abdomen and pelvis showed evidence of metastatic cancer Follow with PCP and oncologist 4. Hx of PE on chronic anticoagulation Continue Xarelto 5. COPD Presumed stable Inhalers 6. 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 Continue dexamethasone Diabetic diet Continue Lantus 5 units daily Insulin sliding scale Glipizide is on hold 7. Acute gastroenteritis Improving Stool study including fever IV fluid 8. Dehydration 2 L normal saline was given in the ER Continue IV fluid 9. Pancytopenia - WBC 0.5 Reverse precaution Repeat a CBC in the morning 10. DVT prophylaxis: On Xarelto 11. CODE STATUS: Client Experience Specialist Spent With Patient Time: Total time spent is greater than 50% in coordination of care (as documented) at patient's floor/unit and/or counseling patient: QUALITY VTE Deep Vein Thrombosis/Pulmonary Embolism Present on Admission: No
[2020-02-22] MEDS: morphine 4 MG/ML VIAL IV PRN (12:16)
[2020-02-22] MEDS: INSULIN GLARGINE, HUMAN 1 UNIT/0.01 ML SQ SCH (21:47)
[2020-02-22] MEDS: SENNOSIDES 1 TABLET PO SCH (21:50)
[2020-02-23] MEDS: traMADol 50 MG TABLET PO PRN ×4 (00:11→23:16)
[2020-02-23] MEDS: 0.9 % SODIUM CHLORIDE 1,000 ML IV SCH ×3 (00:12→20:44)
[2020-02-23] MEDS: morphine 4 MG/ML VIAL IV PRN ×3 (03:57→21:53)
[2020-02-23] MEDS: PIPERACILLIN SODIUM/TAZOBACTAM 3.375 GM in DEXTROSE 5% IN WATER 50 ML IV SCH ×4 (05:41→23:17)
[2020-02-23] MEDS: 0.9 % SODIUM CHLORIDE 10 ML SYRINGE IV SCH ×3 (05:41→21:54)
[2020-02-23 06:48] LABS: ALT/SGPT 18 U/l (0-40); AST/SGOT 7 U/l (0-37); Albumin 2.4 gm/dL (3.2-5.2); Albumin/Globulin Ratio 0.9 (1.0-2.3); Alkaline Phosphatase 70 U/L (39-117); Bilirubin,Total 0.2 mg/dL (0.0-1.0); Calcium 8.5 mg/dl (8.6-10.4); Carbon Dioxide 18 mmol/L (22-30); Chloride 101 mmol/L (96-108); Globulin 2.6 gm/dL (2.2-3.7); Glomerular Filtration Rate 76; Glucose 154 mg/dL (70-105)
[2020-02-23 07:01] LABS: Blood Urea Nitrogen 20 mg/dl (6-20)
[2020-02-23] MEDS: INSULIN LISPRO 1 UNIT/0.01 ML UNIT SQ SCH ×4 (07:01→20:57)
[2020-02-23] MEDS: PANTOPRAZOLE 40 MG TABLET PO SCH (07:03)
[2020-02-23 08:47] LABS: Basophils # (Auto) 0 K/mcL (0.00-0.30); Basophils % (Auto) 0 % (0.0-2.0); Eosinophils # (Auto) 0 K/mcL (0.00-0.70); Eosinophils % (Auto) 0 % (0.0-7.0); Granulocytes % (Auto) 14.3 % (38.0-78.0); Hematocrit 19.7 % (34.1-44.9); Hemoglobin 6.6 g/dL (11.2-15.7); Lymphocytes % (Auto) 81.6 % (15.5-49.0); Mean Cell Volume 87.2 fL (80.0-100.0); Mean Corpuscular HGB Conc 33.5 g/dL (31.0-36.0); Mean Platelet Volume 10.4 fL (7.4-10.4); Monocytes # (Auto) 0.02 K/mcL (0.10-0.90); Monocytes % (Auto) 4.1 % (1.0-12.0); Platelet Count 34 K/mcL (140-440); RBC 2.26 M/mcL (3.59-5.38); Red Cell Distribution Width 16.2 % (11.5-14.5); WBC 0.5 K/mcL (4.50-11.00)
[2020-02-23] MEDS: DEXAMETHASONE 4 MG TABLET PO SCH (09:26)
[2020-02-23] MEDS: RIVAROXABAN 20 MG TABLET PO SCH (09:26)
[2020-02-23] MEDS: METOPROLOL TARTRATE 25 MG TABLET PO SCH ×2 (09:27→21:01)
[2020-02-23] MEDS: DOCUSATE SODIUM 100 MG CAPSULE PO SCH ×2 (09:43→20:58)
[2020-02-23] MEDS: MUPIROCIN OINT 2% 22GM NARES SCH ×2 (09:43→21:01)
[2020-02-23] MEDS: VANCOMYCIN 1,500 MG in 0.9 % SODIUM CHLORIDE 500 ML IV SCH (10:42)
[2020-02-23] MEDS: POTASSIUM CHLORIDE 20 MEQ TABLET PO SCH ×3 (12:30→16:02)
[2020-02-23] MEDS ORDERED: 0.9 % SODIUM CHLORIDE 250 ML IV SCH ×2 (13:45→19:15)
--- NOTE | 2020-02-23 15:56 | Internal Med Progress Note ---
SUBJECTIVE Subjective Patient information: Note initiated : 02/23/20 at 3:55 pm Service Date, if different from initiated Date: [] Patient: Shirley Novoa 49 y/o F admitted on 02/21/20 for abdominal pain. Chief Complaint: [] Ms. Novoa is a 49 year old F with a past medical history of metastatic lung cancer, history of pulmonary embolisms, and COPD who presented to the ER due to abdominal pain and diarrhea x 2 days. As per patient and , she started to have upper abdominal pain associated with nausea, vomiting, and diarrhea. The pain is constant, sharp in nature and 4-8 out of 10 in severity. No radiation. She has been having 4-5 times bowel movements a day with the very loose yellow stool. Patient got pneumonia 3 weeks ago for which patient was hospitalized to [facility] in [place] for 2 weeks. Over there she was given IV antibiotics. She was just discharged to home last week. She was diagnosed with metastatic non-small cell lung cancer in October 2019. She received chemotherapy recently. In the ER, chest x-ray showed bilateral pneumonia. When I saw this patient in the ER, other than the symptoms mentioned above, she also complained of fatigue. Otherwise she denied headache, dizziness, chest pain, dysuria, or changes in vision. 02/21 Patient still feels tired but better than yesterday. Denies fever, chills. Patient still has diarrhea. Patient had one bowel movement with loose stool this morning. C. difficile negative Tachycardia >100. WBC 0.5, platelet 51 MRSA screen positive -precaution contact and decolonization 02/22 Today patient feels much better, stronger. Less abdominal pain. She had one bowel movement this morning. Vital signs are stable and acceptable. She is on room air to 2 L oxygen. She has been home oxygen 2 L. White blood cells 0.5, red blood cells of 2.26, platelets 34. Potassium 3.0, Hemoglobin A1c 8.2 MRSA screen was positive -isolation contact, decolonization protocol. Spoke to her oncologist Dr. Torre ([phone]) who suggested to give her 2 units of leuko-poor irradiated transfusion. He will see patient early next week. Review of Systems All systems: reviewed and no additional remarkable complaints except as stated Constitutional Vitals: Vital Signs Temp Pulse Resp BP Pulse Ox 97.6 F 82 20 120/66 90 10/01/20 12:00 02/23/20 12:00 02/23/20 12:00 02/23/20 12:00 02/23/20 12:00 Period Temp Pulse Resp BP Sys/Plaza Pulse Ox Last 24 Hr 96.5 F-98.7 F 81-97 18-22 95-120/55-72 90-96 Intake and Output 02/23/20 02/23/20 02/23/20 05:59 13:59 21:59 Intake Total 850 1100 Output Total 700 400 Balance 150 700 Intake & Output: Intake & Output 02/23/20 02/23/20 02/23/20 05:59 13:59 21:59 Intake Total 850 1100 Output Total 700 400 Balance 150 700 Intake: IV 550 1100 Sodium Chloride 0.9% 1,000 ml @ 1000 100 mls/hr IV .Q10H [facility] Rx#: [id number] Zosyn 3.375 gm In Dextrose 5% 50 100 in Water 50 ml @ 100 mls/hr IV Q6H [facility] Rx#:[id number] Vancomycin 1,500 mg In Sodium 500 Chloride 0.9% 500 ml @ 333.3 mls/hr IV Q12H [facility] Rx#: [id number] Oral 300 Output: Void Amount 300 300 Urine/Stool Mix 300 Stool 100 100 Other: Urine Appearance Clear Urine Color Pale Bright Yellow Stool Color Brown Brown Stool Consistency Watery Liquid Watery # Voids 1 # Bowel Movements 1 Additional findings Additional findings: General - Eyes - PERRLA, EOM intact ENT no rhinorrhea, no noticeable or palpable swelling, no redness or rash around throat or on face Neck supple, no JVD, no thyromegaly Respiratory: Lungs -coarse breathing sounds and crackles. Cardiovascular - RRR no m/r/g, GI - Normal bowel sounds, no distended, soft, diffuse tenderness (significantly improved) Extremeties - No edema, cyanosis or clubbing Hemo/lymphatic/immune no lymphadenopathy Neurological - A+Ox 3, no focal neurological deficits. Psychiatry flat affect OBJ DATA Labs CBC & Chem 7: 02/23/20 05:25 02/23/20 05:25 Labs: Abnormal Lab Results 02/23/20 02/23/20 02/23/20 08:02 05:25 05:25 WBC 0.5 L* RBC 2.26 L Hgb 6.6 L* Hct 19.7 L* RDW 16.2 H Plt Count 34 L* MPV Gran % 14.3 L Lymph % (Auto) 81.6 H Gran # 0.07 L* Lymph # (Auto) 0.40 L [place] # (Auto) 0.02 L Seg Neutrophils % Lymphocytes % VBG Lactic Acid Sodium 130 L Potassium 3.0 L Carbon Dioxide 18 L Anion Gap BUN Glucose 154 H Hemoglobin A1c Calcium 8.5 L Total Protein 5.0 L Albumin 2.4 L Albumin/Globulin Ratio 0.9 L Procalcitonin Ur Specific [place] Urine Protein Urine Glucose (UA) Urine WBC Ur Squamous Epith Cells Vancomycin Trough 24.9 H* 02/22/20 02/22/20 02/21/20 05:25 05:25 14:43 WBC 0.5 L* RBC 2.73 L Hgb 7.8 L Hct 23.4 L RDW 16.4 H Plt Count 51 L MPV 10.5 H Gran % 13.3 L Lymph % (Auto) 75.6 H Gran # 0.06 L* Lymph # (Auto) 0.34 L [place] # (Auto) 0.02 L Seg Neutrophils % Lymphocytes % VBG Lactic Acid Sodium Potassium Carbon Dioxide 20 L Anion Gap BUN 26 H Glucose 140 H Hemoglobin A1c 8.2 H Calcium 8.2 L Total Protein 5.4 L Albumin 2.3 L Albumin/Globulin Ratio 0.7 L Procalcitonin Ur Specific [place] > 1.060 H Urine Protein 30 A Urine Glucose (UA) 150 A Urine WBC 7 H Ur Squamous Epith Cells 5 H Vancomycin Trough 02/21/20 02/21/20 02/21/20 14:15 10:40 10:30 WBC RBC Hgb Hct RDW Plt Count MPV Gran % Lymph % (Auto) Gran # Lymph # (Auto) [place] # (Auto) Seg Neutrophils % Lymphocytes % VBG Lactic Acid 3.2 H 3.1 H Sodium Potassium Carbon Dioxide Anion Gap BUN Glucose Hemoglobin A1c Calcium Total Protein Albumin Albumin/Globulin Ratio Procalcitonin 4.01 H Ur Specific [place] Urine Protein Urine Glucose (UA) Urine WBC Ur Squamous Epith Cells Vancomycin Trough 02/21/20 02/21/20 10:28 10:28 WBC 0.5 L* RBC 3.56 L Hgb 10.2 L Hct 30.2 L RDW 10.2 L Plt Count 78 L MPV Gran % Lymph % (Auto) Gran # Lymph # (Auto) [place] # (Auto) Seg Neutrophils % 17 L Lymphocytes % 78 H VBG Lactic Acid Sodium Potassium Carbon Dioxide 19 L Anion Gap 17.0 H BUN 35 H Glucose 249 H Hemoglobin A1c Calcium Total Protein Albumin 3.1 L Albumin/Globulin Ratio Procalcitonin Ur Specific [place] Urine Protein Urine Glucose (UA) Urine WBC Ur Squamous Epith Cells Vancomycin Trough Meds: Medications Acetaminophen (Tylenol) 650 mg PO Q6HP PRN; Protocol PRN Reason: Per Pain Protocol/Fever > 101 Albuterol/Ipratropium (Duoneb) 3 ml NEB Q6HP PRN PRN Reason: Shortness Of Breath Dexamethasone (Decadron) 6 mg PO DAILY [facility] Dextrose (Dextrose 50%) 0 ml IV UD PRN PRN Reason: Hypoglycemia Diagnostic Test (Pha) (Accu-Chek) 1 each FS ACHS [facility] Last Admin: 02/23/20 12:03 Dose: 1 each Documented by: Docusate Sodium (Colace) 100 mg PO BID [facility] Last Admin: 02/23/20 09:43 Dose: Not Given Documented by: Fentanyl (Duragesic) 12 mcg TOPICAL Q72H [facility] Glucose (Insta-Glucose) 15 gm PO PRN PRN PRN Reason: Hypoglycemia Sodium Chloride (Sodium Chloride 0.9%) 1,000 mls @ 100 mls/hr IV .Q10H [facility] Last Admin: 02/23/20 09:47 Dose: 100 mls/hr Documented by: Piperacillin Sod/Tazobactam (Sod 3.375 gm/ Dextrose) 50 mls @ 100 mls/hr IV Q6H [facility]; Protocol Last Infusion: 02/23/20 12:35 Dose: Infused Documented by: Sodium Chloride (Sodium Chloride 0.9%) 250 mls @ 20 mls/hr IV .[id number] [facility] Stop: 02/24/20 02:14 Insulin Glargine (Lantus) 5 unit SQ QPM [facility] Last Admin: 02/22/20 21:47 Dose: 5 units Documented by: Insulin Human Lispro (Humalog) 0 unit SQ ACHS [facility]; Protocol Last Admin: 02/23/20 12:04 Dose: Not Given Documented by: Melatonin (Melatonin 3mg Tablet) 6 mg PO HSP PRN PRN Reason: Insomnia Last Admin: 02/22/20 21:50 Dose: 6 mg Documented by: Metoprolol Tartrate (Lopressor) 12.5 mg PO BID [facility] Last Admin: 02/23/20 09:27 Dose: 12.5 mg Documented by: Morphine Sulfate (Morphine) 2 mg IV Q4HP PRN; Protocol PRN Reason: Per Pain Protocol Last Admin: 02/23/20 03:57 Dose: 2 mg Documented by: Mupirocin (Bactroban Oint 2%) 1 dose NARES BID [facility] Last Admin: 02/23/20 09:43 Dose: 1 dose Documented by: Ondansetron HCl (Zofran) 4 mg IV Q6HP PRN PRN Reason: Nausea And Vomiting Pantoprazole Sodium (Protonix) 40 mg PO QAMAC [facility] Last Admin: 02/23/20 07:03 Dose: Not Given Documented by: Potassium Chloride (Kdur) 20 meq PO Q2 [facility] Stop: 02/23/20 16:01 Last Admin: 02/23/20 14:00 Dose: Not Given Documented by: Rivaroxaban (Xarelto) 20 mg PO QDAY [facility] Last Admin: 02/23/20 09:26 Dose: 20 mg Documented by: Senna (Senokot) 2 tab PO HS [facility] Last Admin: 02/22/20 21:50 Dose: Not Given Documented by: Sodium Chloride (Saline Flush) 10 ml IV Q8 [facility] Last Admin: 02/23/20 13:14 Dose: Not Given Documented by: Tramadol HCl (Ultram) 50 mg PO Q6HP PRN; Protocol PRN Reason: Pain Last Admin: 02/23/20 07:00 Dose: 50 mg Documented by: Vancomycin HCl (Vancomycin Per Pharmacy) 1 order IV UD [facility]; Protocol A/P Narrative A/P Narrative: 1. Acute and chronic hypoxic respiratory failure Pulse ox Oxygen therapy, keep oxygen saturation greater than 92% 2. Pneumonia, HCA/CAP/aspiration? CT chest - "Large alveolar infiltrate throughout the posterior right lower lobe. Moderate patchy infiltrates in the right upper and middle lobes. Large alveolar infiltrate throughout the posterior left lower lobe including superior, medial basilar and posterior basilar segments. Suspect aspiration or pneumonia" Blood culture no growth Sputum culture pending MRSA screen positive -decolonization Vanco (dosing by pharmacy) and Zosyn 3. Metastatic non-small cell lung cancer CT chest, abdomen and pelvis showed evidence of metastatic cancer Follow with PCP and oncologist 4. Hx of PE on chronic anticoagulation Continue Xarelto 5. COPD Presumed stable Inhalers 6. 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 Continue dexamethasone Diabetic diet Continue Lantus 5 units daily Insulin sliding scale Glipizide is on hold 7. Acute gastroenteritis Improving Stool study including fever IV fluid Discussed with the patient who would like to be referred to GI after discharge 8. Dehydration 2 L normal saline was given in the ER Continue IV fluid 9. Pancytopenia - WBC 0.5 Reverse precaution White blood cells 0.5, red blood cells of 2.26, platelets 34. Spoke to her oncologist Dr. Torre ([phone]) who suggested to give her 2 units of leuko-poor irradiated transfusion. He will see patient early next week. Repeat a CBC in the morning 10. Positive for MRSA screen Precaution contact Decolonization protocol 11. DVT prophylaxis: On Xarelto 12. 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
[2020-02-23] MEDS: POTASSIUM CHLORIDE 20 MEQ/15 ML ML PO SCH ×2 (17:08→20:43)
[2020-02-23] MEDS ORDERED: ONDANSETRON 4 MG/2 ML VIAL IV PRN (19:15)
[2020-02-23] MEDS ORDERED: VANCOMYCIN PER PHARMACY IV SCH (19:15)
[2020-02-23] MEDS ORDERED: IPRATROPIUM/ALBUTEROL 3 ML AMPUL.NEB NEB PRN (19:15)
[2020-02-23] MEDS ORDERED: DEXTROSE 50% 50 ML VIAL IV PRN (19:15)
[2020-02-23] MEDS ORDERED: IOPAMIDOL 100 ML BOTTLE IV ONE (19:15)
[2020-02-23] MEDS ORDERED: DEXTROSE 31 GM ORAL.SUSP PO PRN (19:15)
[2020-02-23] MEDS ORDERED: MELATONIN 3 MG TABLET PO PRN (19:15)
[2020-02-23] MEDS ORDERED: ACETAMINOPHEN 325 MG TABLET PO PRN (19:15)
[2020-02-23] MEDS ORDERED: SENNOSIDES 1 TABLET PO SCH (21:00)
[2020-02-23] MEDS ORDERED: INSULIN GLARGINE, HUMAN 1 UNIT/0.01 ML SQ SCH (21:00)
[2020-02-23] MEDS ORDERED: POTASSIUM CHLORIDE 20 MEQ/15 ML ML PO SCH (21:00)
[2020-02-24] MEDS: morphine 4 MG/ML VIAL IV PRN ×3 (02:50→19:17)
[2020-02-24] MEDS: PIPERACILLIN SODIUM/TAZOBACTAM 3.375 GM in DEXTROSE 5% IN WATER 50 ML IV SCH ×3 (05:50→17:39)
[2020-02-24] MEDS: 0.9 % SODIUM CHLORIDE 10 ML SYRINGE IV SCH ×3 (05:50→21:07)
[2020-02-24 05:58] LABS: Basophils # (Auto) 0 K/mcL (0.00-0.30); Basophils % (Auto) 0 % (0.0-2.0); Eosinophils # (Auto) 0 K/mcL (0.00-0.70); Eosinophils % (Auto) 0 % (0.0-7.0); Granulocytes % (Auto) 16.2 % (38.0-78.0); Hematocrit 28.7 % (34.1-44.9); Hemoglobin 9.8 g/dL (11.2-15.7); Lymphocytes # (Auto) 0.92 K/mcL (1.50-4.80); Lymphocytes % (Auto) 82.9 % (15.5-49.0); Mean Cell Volume 86.7 fL (80.0-100.0); Mean Corpuscular HGB Conc 34.1 g/dL (31.0-36.0); Mean Platelet Volume 10.5 fL (7.4-10.4); Monocytes # (Auto) 0.01 K/mcL (0.10-0.90); Monocytes % (Auto) 0.9 % (1.0-12.0); Platelet Count 24 K/mcL (140-440); RBC 3.31 M/mcL (3.59-5.38); Red Cell Distribution Width 15.3 % (11.5-14.5); WBC 1.1 K/mcL (4.50-11.00)
[2020-02-24 06:00] LABS: ALT/SGPT 19 U/l (0-40); AST/SGOT 11 U/l (0-37); Albumin 2.4 gm/dL (3.2-5.2); Albumin/Globulin Ratio 0.8 (1.0-2.3); Alkaline Phosphatase 68 U/L (39-117); Bilirubin,Total 1.1 mg/dL (0.0-1.0); Blood Urea Nitrogen 18 mg/dl (6-20); Calcium 8.1 mg/dl (8.6-10.4); Carbon Dioxide 17 mmol/L (22-30); Chloride 101 mmol/L (96-108); Globulin 2.9 gm/dL (2.2-3.7); Glomerular Filtration Rate 67; Glucose 80 mg/dL (70-105)
[2020-02-24 06:12] LABS: Vancomycin,Random 12.2 ug/mL
[2020-02-24] MEDS ORDERED: POTASSIUM CHLORIDE 20 MEQ in DEXTROSE 5% IN WATER 250 ML IV ONE (07:27)
[2020-02-24] MEDS ORDERED: PANTOPRAZOLE 40 MG TABLET PO SCH (07:30)
[2020-02-24] MEDS ORDERED: POTASSIUM CHLORIDE 20 MEQ/15 ML ML PO ONE ×4 (08:00→16:32)
[2020-02-24] MEDS: INSULIN LISPRO 1 UNIT/0.01 ML UNIT SQ SCH ×4 (08:38→21:01)
[2020-02-24] MEDS: DOCUSATE SODIUM 100 MG CAPSULE PO SCH ×2 (08:39→21:03)
[2020-02-24] MEDS ORDERED: DEXAMETHASONE 4 MG TABLET PO SCH ×2 (09:00)
[2020-02-24] MEDS ORDERED: RIVAROXABAN 20 MG TABLET PO SCH (09:00)
[2020-02-24] MEDS ORDERED: VANCOMYCIN 1,500 MG in 0.9 % SODIUM CHLORIDE 500 ML IV SCH (09:00)
[2020-02-24] MEDS: MUPIROCIN OINT 2% 22GM NARES SCH ×2 (09:26→21:06)
[2020-02-24] MEDS: 0.9 % SODIUM CHLORIDE 1,000 ML IV SCH ×2 (09:26→19:44)
[2020-02-24] MEDS: METOPROLOL TARTRATE 25 MG TABLET PO SCH ×2 (09:30→21:04)
[2020-02-24] MEDS ORDERED: fentaNYL 12 MCG PATCH TOPICAL SCH ×2 (10:00)
[2020-02-24] MEDS ORDERED: IOPAMIDOL 100 ML BOTTLE IV ONE ×3 (12:41→16:17)
[2020-02-24] MEDS: traMADol 50 MG TABLET PO PRN ×2 (13:31→21:05)
--- NOTE | 2020-02-24 15:32 | Cat Scan Report ---
CLINICAL INFORMATION: Abdominal pain COMPARISON: Chest, abdomen and pelvic CT 02/21/2020 TECHNIQUE: Following enteric contrast, 80 cc of Isovue-370 were injected intravenously, and 60 seconds later, 0.625 mm helical slices were obtained from the mid heart through the subtrochanteric regions. Following reconstruction, 2.5 mm sagittal, coronal and axial reformatted images were processed and reviewed at bone, lung and soft tissue windows. Five minutes later, 0.625 mm helical slices were obtained from the mid heart through the kidneys and viewed at soft tissue windows.The exam was performed using radiation dose optimization techniques including, but not limited to, automated exposure control, adjustment of the mA and/or kV according to patient size and use of iterative reconstruction technique. FINDINGS: Lung bases show considerable decrease in the size and density of diffuse bilateral groundglass and alveolar infiltrates throughout both lower lobes, lingula and visualized right middle lobe. No effusions. The visualized heart is unremarkable. Abdominal images show minimal fatty change within the liver. The gallbladder is surgically absent. Intrahepatic, common hepatic and common bile ducts are moderately dilated: The common bile duct is 12 mm. This is unchanged from the prior exam. There is no evidence of stone mass or other cause for ductal obstruction the ampullary region. Post cholecystectomy papillary stenosis is suspected. The pancreas, both adrenal glands, left kidney, spleen and aorta including aortic branches are normal in size configuration and attenuation without focal lesion. There is a vague 20 mm low-attenuation focus inferior pole the right kidney which could indicate scarring or even a vague renal cell carcinoma. There is no free air, free fluid or adenopathy. Pelvic images show the bladder is normal. Uterus is anteflexed and normal in size 8 x 4 cm. Both ovaries are unremarkable. There are multiple jejunal loops in the left midabdomen which are now dilated and demonstrate moderate thickening of the wall and plicae circulares folds with edema in the adjacent mesenteric fat. There may be a transition point to decompressed ileum in the right lower quadrant. Partial obstruction is likely due to adhesion or stricture.. Colon contains normal amounts of fluid. The appendix is unremarkable. Bone windows again show vertebroplasty changes at L1 L3 arrested mild compression fractures. IMPRESSION: 1. Large bilateral alveolar infiltrates in the visualized lower lobes, right middle lobe and lingula which have worsened considerably. Consider Covid pneumonia. 2. Multiple loops of jejunum and the left mid abdomen demonstrating moderate dilatation and wall and plicae circulares folds thickening with edema in the mesenteric fat. This could indicate partial small bowel obstruction or enteritis. 3. Moderate dilatation of the common bile duct likely reflecting postcholecystectomy papillary stenosis - no change. 4. Scattered nodules within Camper's fascia stable and likely subcutaneous benign epidermoid cyst but could represent metastases. 5. Vague 14 mm low-attenuation lesion inferior pole the right kidney possible focal inflammation or less likely renal cell carcinoma. Interpreted and Authenticated by: Jett Perez 02/24/20
--- NOTE | 2020-02-24 15:51 | Internal Med Progress Note ---
SUBJECTIVE Subjective Patient information: Note initiated : 02/24/20 at 3:39 pm Service Date, if different from initiated Date: [] Patient: Shirley Novoa 49 y/o F admitted on 02/21/20 for abdominal pain. Chief Complaint: [] Interval history: Ms. Novoa is a 49 year old F with a past medical history of metastatic lung cancer, history of pulmonary embolisms, and COPD who presented to the ER due to abdominal pain and diarrhea x 2 days. As per patient and , she started to have upper abdominal pain associated with nausea, vomiting, and diarrhea. The pain is constant, sharp in nature and 4-8 out of 10 in severity. No radiation. She has been having 4-5 times bowel movements a day with the very loose yellow stool. Patient got pneumonia 3 weeks ago for which patient was hospitalized to [facility] in [place] for 2 weeks. Over there she was given IV antibiotics. She was just discharged to home last week. She was diagnosed with metastatic non-small cell lung cancer in October 2019. She received chemotherapy recently. In the ER, chest x-ray showed bilateral pneumonia. When I saw this patient in the ER, other than the symptoms mentioned above, she also complained of fatigue. Otherwise she denied headache, dizziness, chest pa in, dysuria, or changes in vision. 02/21 Patient still feels tired but better than yesterday. Denies fever, chills. Patient still has diarrhea. Patient had one bowel movement with loose stool this morning. C. difficile negative Tachycardia >100. WBC 0.5, platelet 51 MRSA screen positive -precaution contact and decolonization 02/22 Today patient feels much better, stronger. Less abdominal pain. She had one bowel movement this morning. Vital signs are stable and acceptable. She is on room air to 2 L oxygen. She has been home oxygen 2 L. White blood cells 0.5, red blood cells of 2.26, platelets 34. Potassium 3.0, Hemoglobin A1c 8.2 MRSA screen was positive -isolation contact, decolonization protocol. Spoke to her oncologist Dr. Torre ([phone]) who suggested to give her 2 units of leuko-poor irradiated transfusion. He will see patient early next week. 02/23 Complains of more abdominal pain associated with n. She has poor appetite and does not want to eat. On oxygen via aerosol mask wbc 1.1, Hb 9.8, plt 24, K2.[address] abd Spoke to oncologist Dr. Torre felt that she does not need plts transfusion at the level unless she has bleeding. 02/24 Constitutional Vitals: Vital Signs Temp Pulse Resp BP Pulse Ox 97.4 F 83 12 115/76 97 02/24/20 12:01 02/24/20 12:01 02/24/20 12:01 02/24/20 12:01 02/24/20 12:01 Period Temp Pulse Resp BP Sys/Plaza Pulse Ox Last 24 Hr 97.1 F-98.3 F 74-91 - 109-129/64-90 91-98 Intake and Output 02/24/20 02/24/20 02/24/20 05:59 13:59 21:59 Intake Total 1284 1600 Output Total 750 Balance 534 1600 Intake & Output: Intake & Output 02/24/20 02/24/20 02/24/20 05:59 13:59 21:59 Intake Total 1284 1600 Output Total 750 Balance 534 1600 Intake: IV 50 1600 Sodium Chloride 0.9% 1,000 ml @ 1000 100 mls/hr IV .Q10H [facility] Rx#: [id number] Sodium Chloride 0.9% 250 ml @ 0 20 mls/hr IV .[id number] [facility] Rx#: [id number] Zosyn 3.375 gm In Dextrose 5% 50 100 in Water 50 ml @ 100 mls/hr IV Q6H [facility] Rx#:[id number] Vancomycin 1,500 mg In Sodium 500 Chloride 0.9% 500 ml @ 333.3 mls/hr IV Q24H [facility] Rx#: [id number] Oral 600 Blood Product 634 Output: Void Amount 700 Emesis 50 Other: Urine Appearance Clear Urine Color Straw # Emeses 1 Exam: General: Alert, Awake, No acute Distress, obese Eyes/N/T: EOMI, Head/Neck: neck supple, CV: RRR, No murmurs, Pulm: rhonchi/rales b/l, no wheezing Abd: soft, mild generalized tenderness, +BS x4 Ext: no clubbing/cyanosis/edema Neuro: Alert, no focal deficits, moves all extremities, Skin: warm/dry OBJ DATA Labs CBC & Chem 7: 02/24/20 04:50 02/24/20 04:50 Labs: Abnormal Lab Results 02/24/20 02/24/20 02/23/20 04:50 04:50 08:02 WBC 1.1 L RBC 3.31 L Hgb 9.8 L Hct 28.7 L RDW 15.3 H Plt Count 24 L* MPV 10.5 H Gran % 16.2 L Lymph % (Auto) 82.9 H [place] % (Auto) 0.9 L Gran # 0.18 L* Lymph # (Auto) 0.92 L [place] # (Auto) 0.01 L Sodium Potassium 2.7 L* Carbon Dioxide 17 L BUN Glucose Hemoglobin A1c Calcium 8.1 L Total Bilirubin 1.1 H Total Protein 5.3 L Albumin 2.4 L Albumin/Globulin Ratio 0.8 L Ur Specific [place] Urine Protein Urine Glucose (UA) Urine WBC Ur Squamous Epith Cells Vancomycin Trough 24.9 H* 02/23/20 02/23/20 02/22/20 05:25 05:25 05:25 WBC 0.5 L* 0.5 L* RBC 2.26 L 2.73 L Hgb 6.6 L* 7.8 L Hct 19.7 L* 23.4 L RDW 16.2 H 16.4 H Plt Count 34 L* 51 L MPV 10.5 H Gran % 14.3 L 13.3 L Lymph % (Auto) 81.6 H 75.6 H [place] % (Auto) Gran # 0.07 L* 0.06 L* Lymph # (Auto) 0.40 L 0.34 L [place] # (Auto) 0.02 L 0.02 L Sodium 130 L Potassium 3.0 L Carbon Dioxide 18 L BUN Glucose 154 H Hemoglobin A1c Calcium 8.5 L Total Bilirubin Total Protein 5.0 L Albumin 2.4 L Albumin/Globulin Ratio 0.9 L Ur Specific [place] Urine Protein Urine Glucose (UA) Urine WBC Ur Squamous Epith Cells Vancomycin Trough 02/22/20 02/21/20 05:25 14:43 WBC RBC Hgb Hct RDW Plt Count MPV Gran % Lymph % (Auto) [place] % (Auto) Gran # Lymph # (Auto) [place] # (Auto) Sodium Potassium Carbon Dioxide 20 L BUN 26 H Glucose 140 H Hemoglobin A1c 8.2 H Calcium 8.2 L Total Bilirubin Total Protein 5.4 L Albumin 2.3 L Albumin/Globulin Ratio 0.7 L Ur Specific [place] > 1.060 H Urine Protein 30 A Urine Glucose (UA) 150 A Urine WBC 7 H Ur Squamous Epith Cells 5 H Vancomycin Trough Meds: Medications Acetaminophen (Tylenol) 650 mg PO Q6HP PRN; Protocol PRN Reason: Per Pain Protocol/Fever > 101 Albuterol/Ipratropium (Duoneb) 3 ml NEB Q6HP PRN PRN Reason: Shortness Of Breath Dexamethasone (Decadron) 6 mg PO DAILY [facility] Last Admin: 02/24/20 09:30 Dose: 6 mg Documented by: Dextrose (Dextrose 50%) 0 ml IV UD PRN PRN Reason: Hypoglycemia Diagnostic Test (Pha) (Accu-Chek) 1 each FS [facility] Last Admin: 02/24/20 13:00 Dose: 1 each Documented by: Docusate Sodium (Colace) 100 mg PO BID [facility] Last Admin: 02/24/20 08:39 Dose: Not Given Documented by: Fentanyl (Duragesic) 12 mcg TOPICAL Q72H [facility] Last Admin: 02/24/20 11:05 Dose: 12 mcg Documented by: Glucose (Insta-Glucose) 15 gm PO PRN PRN PRN Reason: Hypoglycemia Sodium Chloride (Sodium Chloride 0.9%) 1,000 mls @ 100 mls/hr IV .Q10H [facility] Last Admin: 02/24/20 09:26 Dose: 100 mls/hr Documented by: Piperacillin Sod/Tazobactam (Sod 3.375 gm/ Dextrose) 50 mls @ 100 mls/hr IV Q6H [facility]; Protocol Last Infusion: 02/24/20 13:35 Dose: Infused Documented by: Vancomycin HCl 1,500 mg/ (Sodium Chloride) 500 mls @ 333.3 mls/hr IV Q24H [facility] Last Infusion: 02/24/20 11:00 Dose: Infused Documented by: Insulin Glargine (Lantus) 5 unit SQ QPM [facility] Last Admin: 02/23/20 20:57 Dose: 5 unit Documented by: Insulin Human Lispro (Humalog) 0 unit SQ ACHS [facility]; Protocol Last Admin: 02/24/20 13:33 Dose: Not Given Documented by: Melatonin (Melatonin 3mg Tablet) 6 mg PO HSP PRN PRN Reason: Insomnia Last Admin: 02/23/20 23:16 Dose: 6 mg Documented by: Metoprolol Tartrate (Lopressor) 12.5 mg PO BID [facility] Last Admin: 02/24/20 09:30 Dose: 12.5 mg Documented by: Morphine Sulfate (Morphine) 2 mg IV Q4HP PRN; Protocol PRN Reason: Per Pain Protocol Last Admin: 02/24/20 09:29 Dose: 2 mg Documented by: Mupirocin (Bactroban Oint 2%) 1 dose NARES BID [facility] Last Admin: 02/24/20 09:26 Dose: 1 dose Documented by: Ondansetron HCl (Zofran) 4 mg IV Q6HP PRN PRN Reason: Nausea And Vomiting Last Admin: 02/24/20 02:56 Dose: 4 mg Documented by: Pantoprazole Sodium (Protonix) 40 mg PO QAMAC [facility] Last Admin: 02/24/20 09:27 Dose: 40 mg Documented by: Senna (Senokot) 2 tab PO HS [facility] Last Admin: 02/23/20 20:58 Dose: Not Given Documented by: Sodium Chloride (Saline Flush) 10 ml IV Q8 [facility] Last Admin: 02/24/20 13:36 Dose: 10 ml Documented by: Tramadol HCl (Ultram) 50 mg PO Q6HP PRN; Protocol PRN Reason: Pain Last Admin: 02/24/20 13:31 Dose: 50 mg Documented by: Vancomycin HCl (Vancomycin Per Pharmacy) 1 order IV UD [facility]; Protocol A/P Narrative A/P Narrative: A: *Acute and chronic hypoxic respiratory failure: -on 2L oxymask (wears 2L NC@home) *Pneumonia, HCA/CAP/Aspiration?: -CT chest with Large alveolar infiltrate throughout posterior RLL, Mod RUL/RML, Large alveolar infiltrate LLL -Blood culture no growth / Sputum culture pending, MRSA screen positive -decolonization -ST eval unremarkable *Ileus vs partial SBO: improved *Metastatic non-small cell lung cancer -CT chest, abdomen and pelvis showed evidence of metastatic cancer -As per patient and , she is on dexamethasone 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 diff Negative *Volume depletion: improved *Pancytopenia: -Spoke to her oncologist Dr. Torre ([phone]) who suggested 2 units le uko-poor irradiated transfusion -He will see patient early next week. 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
[2020-02-24 16:05] LABS: POC Blood Urea Nitrogen 13 mg/dl (6-20); POC CO2 18 mmol/L (22-30); POC Calcium, Ionized 1.17 mmol/L (1.16-1.32); POC Chloride 107 mmol/L (96-108); POC Creatinine 0.8 mg/dl (0.6-1.1); POC Glucose, Random 129 mg/dL (70-105); POC Potassium 3.2 mmol/L (3.3-5.1); POC Sodium 137 mmol/L (133-145)
[2020-02-24] MEDS ORDERED: LOPERAMIDE 2 MG CAPSULE PO PRN (16:07)
[2020-02-24] MEDS ORDERED: POTASSIUM CHLORIDE 20 MEQ TABLET PO ONE ×2 (16:08→16:17)
[2020-02-24] MEDS ORDERED: DEXTROSE 31 GM ORAL.SUSP PO PRN (16:17)
[2020-02-24] MEDS ORDERED: IPRATROPIUM/ALBUTEROL 3 ML AMPUL.NEB NEB PRN (16:17)
[2020-02-24] MEDS ORDERED: DEXTROSE 50% 50 ML VIAL IV PRN (16:17)
[2020-02-24] MEDS ORDERED: VANCOMYCIN PER PHARMACY IV SCH (16:17)
[2020-02-24] MEDS ORDERED: ACETAMINOPHEN 325 MG TABLET PO PRN (16:17)
[2020-02-24] MEDS: LOPERAMIDE 2 MG CAPSULE PO PRN ×2 (16:45→19:34)
--- NOTE | 2020-02-24 17:30 | Discharge Summary ---
Discharge Provider Provider Patient information: Note initiated : 02/24/20 at 5:27 pm Service Date, if different from initiated Date: [] Patient: Shirley Novoa 49 y/o F admitted on 02/21/20 for abdominal pain. Chief Complaint: [] Date of admission: 02/21/20 18:00 Primary care physician: ASIYA Parra Consults: 02/21/20 Consult to Physician [CONS] Stat Comment: Consulting Provider: Mookie Mendoza Reason For Exam: Physician to Consult Discharge Meds Discharge Medications Home Medications oxygen #1 ea 01/19/20 [History Confirmed 02/22/20 Last Taken Unknown] rivaroxaban 20 mg tablet 20 mg PO QPMCC 01/19/20 [History Confirmed 02/21/20 Last Taken 02/20/20] spironolactone 25 mg tablet 25 mg PO QDAY #30 tab 01/20/20 [Rx Confirmed 02/21/20 Last Taken 02/20/20] dexamethasone 6 mg PO DAILY 02/21/20 [History Confirmed 02/21/20 Last Taken 02/20/20] glipizide 5 mg PO QAMAC 02/21/20 [History Confirmed 02/21/20 Last Taken 02/21/20] hydroxyzine HCl 25 mg PO Q6HP PRN 02/21/20 [History Confirmed 02/21/20 Last Taken Unknown] insulin glargine [Lantus Solostar U-100 Insulin] 5 unit SUBCUT QHS 02/21/20 [History Confirmed 02/21/20 Last Taken 02/20/20] insulin lispro 6 unit SUBCUT TIDCC 02/21/20 [History Confirmed 02/21/20 Last T aken 02/21/20] ipratropium-albuterol 3 ml INHALATION Q4HP PRN 02/21/20 [History Confirmed 02/21/20 Last Taken 02/20/20] melatonin 5 mg PO HS PRN 02/21/20 [History Confirmed 02/21/20 Last Taken 0] naloxone [Narcan] 1 spray INTRANASAL PRN PRN 02/21/20 [History Confirmed 02/21/20 Last Taken Unknown] omeprazole magnesium [Acid Machine Molder (omeprazole)] 20 mg PO QDAY 02/21/20 [History Confirmed 02/21/20 Last Taken 02/20/20] oxycodone-acetaminophen 1 - 2 tab PO Q8HP PRN 02/21/20 [History Confirmed 02/21/20 Last Taken 02/20/20] torsemide 20 mg PO QDAY 02/21/20 [History Confirmed 02/21/20 Last Taken 02/20/20] COURSE Hospital Course Hospital course: Ms. Novoa is a 49 year old F with a past medical history of metastatic lung cancer, history of pulmonary embolisms, and COPD who presented to the ER due to abdominal pain and diarrhea x 2 days. As per patient and , she started to have upper abdominal pain associated with nausea, vomiting, and diarrhea. The pain is constant, sharp in nature and 4-8 out of 10 in severity. No radiation. She has been having 4-5 times bowel movements a day with the very loose yellow stool. Patient got pneumonia 3 weeks ago for which patient was hospitalized to [facility] in [place] for 2 weeks. Over there she was given IV antibiotics. She was just discharged to home last week. She was diagnosed with metastatic non-small cell lung cancer in October 2019. She received chemotherapy recently. In the ER, chest x-ray showed bilateral pneumonia. When I saw this patient in the ER, other than the symptoms mentioned above, she also complained of fatigue. Otherwise she denied headache, dizziness, chest pain, dysuria, or changes in vision. 02/21 Patient still feels tired but better than yesterday. Denies fever, chills. Patient still has diarrhea. Patient had one bowel movement with loose stool this morning. C. difficile negative Tachycardia >100. WBC 0.5, platelet 51 MRSA screen positive -precaution contact and decolonization 02/22 Today patient feels much better, stronger. Less abdominal pain. She had one bowel movement this morning. Vital signs are stable and acceptable. She is on room air to 2 L oxygen. She has been home oxygen 2 L. White blood cells 0.5, red blood cells of 2.26, platelets 34. Potassium 3.0, Hemoglobin A1c 8.2 MRSA screen was positive -isolation contact, decolonization protocol. Spoke to her oncologist Dr. Torre ([id number]) who suggested to give her 2 units of leuko-poor irradiated transfusion. He will see patient early next week. 02/23 02/24 *Given significant comorbidities patient high risk for readmission A: *Acute and chronic hypoxic respiratory failure: -on 2L oxymask *Pneumonia, HCA/CAP/Aspiration?: -CT chest with Large alveolar infiltrate throughout posterior RLL, Mod RUL/RML, Large alveolar infiltrate LLL -Blood culture no growth / Sputum culture pending, MRSA screen positive -decolonization -ST eval unremarkable *Metastatic non-small cell lung cancer -CT chest, abdomen and pelvis showed evidence of metastatic cancer -As per patient and , she is on dexamethasone 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 diff Negative *Volume depletion: improved *Pancytopenia: -Spoke to her oncologist Dr. Torre ([id number]) who suggested 2 units leuko-poor irradiated transfusion -He will see patient early next week. *Obesity: Discharge diagnosis: Acute on chronic respiratory failure pneumonia metastatic small cell lung c Secondary discharge diagnosis: History of PE on anticoagulation held for thrombocytopenia COPD steroid-induced diabetes acute gastroenteritis from depletion pancytopenia obesity Time Spent with Patient Time attestation: Total time spent providing and/or coordinating discharge services: Time spent: Greater than 30 minutes EXAM Constitutional Vitals: Temp Pulse Resp BP Pulse Ox 97.4 F 87 18 121/85 97 02/24/20 16:01 02/24/20 17:14 02/24/20 16:01 02/24/20 16:01 02/24/20 17:14 Discharge Data Data Completed and Pending Labs on day of discharge: Labs from last 24 hours 02/24/20 02/24/20 02/24/20 15:55 04:50 04:50 WBC RBC Hgb Hct POC Hct 25.0 L MCV MCH MCHC RDW Plt Count MPV Gran % Lymph % (Auto) Nash % (Auto) Eos % (Auto) Baso % (Auto) Gran # Lymph # (Auto) Nash # (Auto) Eos # (Auto) Baso # (Auto) POC Sodium 137 Sodium 134 POC Potassium 3.2 L Potassium 2.7 L* POC Chloride 107 Chloride 101 Carbon Dioxide 17 L POC Total CO2 18 L Anion Gap 16.0 POC BUN 13 BUN 18 Creatinine 1.0 POC Creatinine 0.8 GFR Calculation 67 Glucose 80 POC Glucose 129 H Calcium 8.1 L POC WB Ioniz Calcium 1.17 Total Bilirubin 1.1 H AST 11 ALT 19 Alkaline Phosphatase 68 Total Protein 5.3 L Albumin 2.4 L Globulin 2.9 Albumin/Globulin Ratio 0.8 L Random Vancomycin 12.2 Vancomycin Dose Not Reportable Vanco Last Dose Time Not Reportable 02/24/20 04:50 WBC 1.1 L RBC 3.31 L Hgb 9.8 L Hct 28.7 L POC Hct MCV 86.7 MCH 29.6 MCHC 34.1 RDW 15.3 H Plt Count 24 L* MPV 10.5 H Gran % 16.2 L Lymph % (Auto) 82.9 H Nash % (Auto) 0.9 L Eos % (Auto) 0 Baso % (Auto) 0 Gran # 0.18 L* Lymph # (Auto) 0.92 L Nash # (Auto) 0.01 L Eos # (Auto) 0 Baso # (Auto) 0 POC Sodium Sodium POC Potassium Potassium POC Chloride Chloride Carbon Dioxide POC Total CO2 Anion Gap POC BUN BUN Creatinine POC Creatinine GFR Calculation Glucose POC Glucose Calcium POC WB Ioniz Calcium Total Bilirubin AST ALT Alkaline Phosphatase Total Protein Albumin Globulin Albumin/Globulin Ratio Random Vancomycin Vancomycin Dose Vanco Last Dose Time Preliminary micro results at discharge 02/21/20 13:13 Blood Culture - Preliminary Blood 02/21/20 13:20 Blood Culture - Preliminary Blood 02/22/20 03:35 Stool Culture - Preliminary Stool Discharge Plan Patient/Caregiver Discharge Instructions Activity: increase activity as tolerated Diet: Consistent Carbohydrate Instructions: Potassium Chloride (By mouth), Potassium Content of Foods List (GEN), Pneumonia (GEN) Activity Restrictions/Additional Instructions: This discharge packet is provided to you to help keep you informed about your care. We want to ensure you get everything you need when you go home. You will also be receiving a call from us in a few days to follow up with you and see how you are doing since your discharge. This gives us a chance to listen to any concerns you maybe experiencing since you were discharged or any additional needs you may have, as well as providing us feedback on your care experience. We strive to always provide excellent care and thank you for your feedback and for choosing [facility]. Prescriptions: No Action Xarelto 20 mg tablet 20 mg PO QPMCC RF: 0 (DME) oxygen Qty: 1 RF: 0 spironolactone 25 mg tablet 25 mg PO QDAY Qty: 30 RF: 0 dexamethasone 4 mg tablet 6 mg PO DAILY RF: 0 glipizide 5 mg Tablet 5 mg PO QAMAC RF: 0 insulin lispro 100 unit/mL Insulin Pen 6 unit SUBCUT TIDCC RF: 0 Lantus Solostar U-100 Insulin 100 unit/mL (3 mL) Insulin Pen 5 unit SUBCUT QHS RF: 0 melatonin 5 mg Tablet 5 mg PO HS PRN (Reason: Insomnia) RF: 0 omeprazole magnesium [Acid Machine Molder (omeprazole)] 20 mg Capsule,Delayed Release(Dr/Ec) 20 mg PO QDAY RF: 0 torsemide 20 mg Tablet 20 mg PO QDAY RF: 0 ipratropium-albuterol 0.5 mg-3 mg(2.5 mg base)/3 mL Solution For Nebulization 3 ml INHALATION Q4HP PRN (Reason: Shortness Of Breath) RF: 0 oxycodone-acetaminophen 5-325 mg tablet 1 - 2 tab PO Q8HP PRN (Reason: Pain) RF: 0 hydroxyzine HCl 25 mg Tablet 25 mg PO Q6HP PRN (Reason: Anxiety) RF: 0 Narcan 4 mg/actuation spray,non-aerosol 1 spray INTRANASAL PRN PRN (Reason: Opioid Reversal) RF: 0 Follow Up Plan Follow up with: Ky Torre [Referring] - 02/27/20 2:00 pm Deepali Trotter ARNP [Primary Care Provider] - 02/28/20 10:00 am Patient Disposition: Home Health Service Prognosis: Undetermined QUALITY VTE Deep Vein Thrombosis/Pulmonary Embolism Present on Admission: No
[2020-02-24] MEDS ORDERED: FAMOTIDINE 20 MG TABLET PO SCH (21:00)
[2020-02-24] MEDS: INSULIN GLARGINE, HUMAN 1 UNIT/0.01 ML SQ SCH (21:02)
[2020-02-24] MEDS: SENNOSIDES 1 TABLET PO SCH (21:03)
--- NOTE | 2020-02-24 21:15 | Internal Med Progress Note ---
SUBJECTIVE Subjective Patient information: Note initiated : 02/24/20 at 9:07 pm Service Date, if different from initiated Date: [] Patient: Shirley Novoa 49 y/o F admitted on 02/21/20 for abdominal pain. Chief Complaint: [] Ms. Novoa is a 49 year old F with a past medical history of metastatic lung cancer, history of pulmonary embolisms, and COPD who presented to the ER due to abdominal pain and diarrhea x 2 days. As per patient and , she started to have upper abdominal pain associated with nausea, vomiting, and diarrhea. The pain is constant, sharp in nature and 4-8 out of 10 in severity. No radiation. She has been having 4-5 times bowel movements a day with the very loose yellow stool. Patient got pneumonia 3 weeks ago for which patient was hospitalized to [facility] in [place] for 2 weeks. Over there she was given IV antibiotics. She was just discharged to home last week. She was diagnosed with metastatic non-small cell lung cancer in October 2019. She received chemotherapy recently. In the ER, chest x-ray showed bilateral pneumonia. When I saw this patient in the ER, other than the symptoms mentioned above, she also complained of fatigue. Otherwise she denied headache, dizziness, chest pain, dysuria, or changes in vision. 02/21 Patient still feels tired but better than yesterday. Denies fever, chills. Patient still has diarrhea. Patient had one bowel movement with loose stool this morning. C. difficile negative Tachycardia >100. WBC 0.5, platelet 51 MRSA screen positive -precaution contact and decolonization 02/22 Today patient feels much better, stronger. Less abdominal pain. She had one bowel movement this morning. Vital signs are stable and acceptable. She is on room air to 2 L oxygen. She has been home oxygen 2 L. White blood cells 0.5, red blood cells of 2.26, platelets 34. Potassium 3.0, Hemoglobin A1c 8.2 MRSA screen was positive -isolation contact, decolonization protocol. Spoke to her oncologist Dr. Torre ([id number]) who suggested to give her 2 units of leuko-poor irradiated transfusion. He will see patient early next week. 02/23 Complains of more abdominal pain associated with n. She has poor appetite and does not want to eat. On oxygen via aerosol mask wbc 1.1, Hb 9.8, plt 24, K2.[address] abd Spoke to oncologist Dr. Torre felt that she does not need plts transfusion at the level unless she has bleeding. Review of Systems All systems: reviewed and no additional remarkable complaints except as stated Constitutional Vitals: Vital Signs Temp Pulse Resp BP Pulse Ox 97.4 F 87 18 121/85 97 02/24/20 16:01 02/24/20 17:14 02/24/20 16:01 02/24/20 16:01 02/24/20 17:14 Period Temp Pulse Resp BP Sys/Plaza Pulse Ox Last 24 Hr 97.1 F-97.6 F 74-91 10- 112-129/69-90 91-98 Intake and Output 02/24/20 02/24/20 02/24/20 05:59 13:59 21:59 Intake Total 1284 1600 1048 Output Total 750 2100 Balance 534 1600 -1052 Intake & Output: Intake & Output 02/24/20 02/24/20 02/24/20 05:59 13:59 21:59 Intake Total 1284 1600 1048 Output Total 750 2100 Balance 534 1600 -1052 Intake: IV 50 1600 1048 Sodium Chloride 0.9% 1,000 ml @ 1000 998 100 mls/hr IV .Q10H [facility] Rx#: [id number] Sodium Chloride 0.9% 250 ml @ 0 20 mls/hr IV .[id number] [facility] Rx#: [id number] Zosyn 3.375 gm In Dextrose 5% 50 100 50 in Water 50 ml @ 100 mls/hr IV Q6H [facility] Rx#:[id number] Vancomycin 1,500 mg In Sodium 500 Chloride 0.9% 500 ml @ 333.3 mls/hr IV Q24H [facility] Rx#: [id number] Oral 600 Blood Product 634 Output: Void Amount 700 Urine/Stool Mix 2100 Emesis 50 Other: Urine Appearance Clear Urine Color Straw # Emeses 1 OBJ DATA Labs CBC & Chem 7: 02/24/20 04:50 02/24/20 04:50 Labs: Abnormal Lab Results 02/24/20 02/24/20 02/24/20 15:55 04:50 04:50 WBC 1.1 L RBC 3.31 L Hgb 9.8 L Hct 28.7 L POC Hct 25.0 L RDW 15.3 H Plt Count 24 L* MPV 10.5 H Gran % 16.2 L Lymph % (Auto) 82.9 H Roosevelt % (Auto) 0.9 L Gran # 0.18 L* Lymph # (Auto) 0.92 L Roosevelt # (Auto) 0.01 L Sodium POC Potassium 3.2 L Potassium 2.7 L* Carbon Dioxide 17 L POC Total CO2 18 L BUN Glucose POC Glucose 129 H Hemoglobin A1c Calcium 8.1 L Total Bilirubin 1.1 H Total Protein 5.3 L Albumin 2.4 L Albumin/Globulin Ratio 0.8 L Vancomycin Trough 02/23/20 02/23/20 02/23/20 08:02 05:25 05:25 WBC 0.5 L* RBC 2.26 L Hgb 6.6 L* Hct 19.7 L* POC Hct RDW 16.2 H Plt Count 34 L* MPV Gran % 14.3 L Lymph % (Auto) 81.6 H Roosevelt % (Auto) Gran # 0.07 L* Lymph # (Auto) 0.40 L Roosevelt # (Auto) 0.02 L Sodium 130 L POC Potassium Potassium 3.0 L Carbon Dioxide 18 L POC Total CO2 BUN Glucose 154 H POC Glucose Hemoglobin A1c Calcium 8.5 L Total Bilirubin Total Protein 5.0 L Albumin 2.4 L Albumin/Globulin Ratio 0.9 L Vancomycin Trough 24.9 H* 02/22/20 02/22/20 05:25 05:25 WBC 0.5 L* RBC 2.73 L Hgb 7.8 L Hct 23.4 L POC Hct RDW 16.4 H Plt Count 51 L MPV 10.5 H Gran % 13.3 L Lymph % (Auto) 75.6 H Roosevelt % (Auto) Gran # 0.06 L* Lymph # (Auto) 0.34 L Roosevelt # (Auto) 0.02 L Sodium POC Potassium Potassium Carbon Dioxide 20 L POC Total CO2 BUN 26 H Glucose 140 H POC Glucose Hemoglobin A1c 8.2 H Calcium 8.2 L Total Bilirubin Total Protein 5.4 L Albumin 2.3 L Albumin/Globulin Ratio 0.7 L Vancomycin Trough Meds: Medications Acetaminophen (Tylenol) 650 mg PO Q6HP PRN; Protocol PRN Reason: Per Pain Protocol/Fever > 101 Albuterol/Ipratropium (Duoneb) 3 ml NEB Q6HP PRN PRN Reason: Shortness Of Breath Dexamethasone (Decadron) 6 mg PO DAILY [facility] Dextrose (Dextrose 50%) 0 ml IV UD PRN PRN Reason: Hypoglycemia Diagnostic Test (Pha) (Accu-Chek) 1 each FS [facility] Last Admin: 02/24/20 21:01 Dose: 1 each Documented by: Docusate Sodium (Colace) 100 mg PO BID [facility] Last Admin: 02/24/20 21:03 Dose: Not Given Documented by: Famotidine (Pepcid) 20 mg PO HS [facility] Fentanyl (Duragesic) 12 mcg TOPICAL Q72H [facility] Glucose (Insta-Glucose) 15 gm PO PRN PRN PRN Reason: Hypoglycemia Piperacillin Sod/Tazobactam (Sod 3.375 gm/ Dextrose) 50 mls @ 100 mls/hr IV Q6H [facility]; Protocol Last Infusion: 02/24/20 18:10 Dose: Infused Documented by: Vancomycin HCl 1,500 mg/ (Sodium Chloride) 500 mls @ 333.3 mls/hr IV Q24H [facility] Insulin Glargine (Lantus) 5 unit SQ QPM [facility] Last Admin: 02/24/20 21:02 Dose: 5 unit Documented by: Insulin Human Lispro (Humalog) 0 unit SQ [facility]; Protocol Last Admin: 02/24/20 21:01 Dose: 1 unit Documented by: Loperamide HCl (Imodium) 2 mg PO PRN PRN PRN Reason: Diarrhea Last Admin: 02/24/20 19:34 Dose: 2 mg Documented by: Melatonin (Melatonin 3mg Tablet) 6 mg PO HSP PRN PRN Reason: Insomnia Metoprolol Tartrate (Lopressor) 12.5 mg PO BID [facility] Last Admin: 02/24/20 21:04 Dose: 12.5 mg Documented by: Morphine Sulfate (Morphine) 2 mg IV Q4HP PRN; Protocol PRN Reason: Per Pain Protocol Last Admin: 02/24/20 19:17 Dose: 2 mg Documented by: Mupirocin (Bactroban Oint 2%) 1 dose NARES BID [facility] Ondansetron HCl (Zofran) 4 mg IV Q6HP PRN PRN Reason: Nausea And Vomiting Pantoprazole Sodium (Protonix) 40 mg PO QAMAC [facility] Senna (Senokot) 2 tab PO HS [facility] Last Admin: 02/24/20 21:03 Dose: Not Given Documented by: Sodium Chloride (Saline Flush) 10 ml IV Q8 [facility] Tramadol HCl (Ultram) 50 mg PO Q6HP PRN; Protocol PRN Reason: Pain Last Admin: 02/24/20 21:05 Dose: 50 mg Documented by: Vancomycin HCl (Vancomycin Per Pharmacy) 1 order IV UD [facility]; Protocol A/P Narrative A/P Narrative: 1. Acute and chronic hypoxic respiratory failure Pulse ox Oxygen therapy, keep oxygen saturation greater than 92% 2. Pneumonia, HCA/CAP/aspiration? CT chest - "Large alveolar infiltrate throughout the posterior right lower lobe. Moderate patchy infiltrates in the right upper and middle lobes. Large alveolar infiltrate throughout the posterior left lower lobe including superior, medial basilar and posterior basilar segments. Suspect aspiration or pneumonia" Blood culture no growth Sputum culture pending MRSA screen positive -decolonization Vanco (dosing by pharmacy) and Zosyn 3. Metastatic non-small cell lung cancer CT chest, abdomen and pelvis showed evidence of metastatic cancer Follow with PCP and oncologist 4. Hx of PE on chronic anticoagulation Continue Xarelto 5. COPD Presumed stable Inhalers 6. 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 Continue dexamethasone Diabetic diet Continue Lantus 5 units daily Insulin sliding scale Glipizide is on hold 7. Acute gastroenteritis/abdominal pain C diff negative IV fluid repeat CT abd 8. Dehydration 2 L normal saline was given in the ER Continue IV fluid 9. Pancytopenia - WBC 0.5 Reverse precaution wbc 1.1, Hb 9.8 (s/p 2 units on 02/22), plt 24, K2.7 Spoke to her oncologist Dr. Torre (([id number])) felt that she does not need plts transfusion at the level unless she has bleeding. Repeat a CBC in the morning 10. Positive for MRSA screen Precaution contact Decolonization protocol 11. DVT prophylaxis: On Xarelto 12. CODE STATUS: [facility] Justice Spent With Patient Time: Total time spent is greater than 50% in coordination of care (as documented) at patient's floor/unit and/or counseling patient: QUALITY VTE Deep Vein Thrombosis/Pulmonary Embolism Present on Admission: No
[2020-02-24] MEDS: MELATONIN 3 MG TABLET PO PRN (22:25)
[2020-02-24] MEDS: FAMOTIDINE 20 MG TABLET PO SCH (22:25)
[2020-02-25] MEDS: PIPERACILLIN SODIUM/TAZOBACTAM 3.375 GM in DEXTROSE 5% IN WATER 50 ML IV SCH ×4 (00:11→18:01)
[2020-02-25] MEDS: traMADol 50 MG TABLET PO PRN ×3 (03:55→18:02)
[2020-02-25] MEDS: 0.9 % SODIUM CHLORIDE 10 ML SYRINGE IV SCH ×3 (06:13→22:07)
[2020-02-25 06:44] LABS: Hemoglobin 8.6 g/dL (11.2-15.7); Mean Cell Volume 85.6 fL (80.0-100.0); Mean Corpuscular HGB Conc 34.4 g/dL (31.0-36.0); Mean Platelet Volume 9.7 fL (7.4-10.4); RBC 2.92 M/mcL (3.59-5.38); Red Cell Distribution Width 15.7 % (11.5-14.5); WBC 1.4 K/mcL (4.50-11.00)
[2020-02-25 06:52] LABS: Platelet Count 13 K/mcL (140-440)
[2020-02-25 07:34] LABS: ALT/SGPT 16 U/l (0-40); AST/SGOT 6 U/l (0-37); Albumin 2.3 gm/dL (3.2-5.2); Albumin/Globulin Ratio 0.9 (1.0-2.3); Alkaline Phosphatase 68 U/L (39-117); Bilirubin,Direct < 0.2 mg/dL (0.0-0.3); Bilirubin,Total 0.4 mg/dL (0.0-1.0); Blood Urea Nitrogen 10 mg/dl (6-20); Calcium 8.3 mg/dl (8.6-10.4); Carbon Dioxide 20 mmol/L (22-30); Chloride 104 mmol/L (96-108); Globulin 2.5 gm/dL (2.2-3.7); Glomerular Filtration Rate 87; Glucose 73 mg/dL (70-105); Lactate Dehydrogenase 331 U/L (94-250); Phosphorous 2.5 mg/dL (2.7-4.5); Triglycerides 225 mg/dl (<150); Uric Acid 2.2 mg/dL (2.5-8.0)
--- NOTE | 2020-02-25 07:40 | Internal Med Progress Note ---
SUBJECTIVE Subjective Patient information: Note initiated : 02/25/20 at 7:38 am Service Date, if different from initiated Date: [] Patient: Shirley Novoa 49 y/o F admitted on 02/21/20 for abdominal pain. Chief Complaint: [] Interval history: Ms. Novoa is a 49 year old F with a past medical history of metastatic lung cancer, history of pulmonary embolisms, and COPD who presented to the ER due to abdominal pain and diarrhea x 2 days. As per patient and , she started to have upper abdominal pain associated with nausea, vomiting, and diarrhea. The pain is constant, sharp in nature and 4-8 out of 10 in severity. No radiation. She has been having 4-5 times bowel movements a day with the very loose yellow stool. Patient got pneumonia 3 weeks ago for which patient was hospitalized to [facility] in [place] for 2 weeks. Over there she was given IV antibiotics. She was just discharged to home last week. She was diagnosed with metastatic non-small cell lung cancer in October 2019. She received chemotherapy recently. In the ER, chest x-ray showed bilateral pneumonia. When I saw this patient in the ER, other than the symptoms mentioned above, she also complained of fatigue. Otherwise she denied headache, dizziness, chest pa in, dysuria, or changes in vision. 02/21 Patient still feels tired but better than yesterday. Denies fever, chills. Patient still has diarrhea. Patient had one bowel movement with loose stool this morning. C. difficile negative Tachycardia >100. WBC 0.5, platelet 51 MRSA screen positive -precaution contact and decolonization 02/22 Today patient feels much better, stronger. Less abdominal pain. She had one bowel movement this morning. Vital signs are stable and acceptable. She is on room air to 2 L oxygen. She has been home oxygen 2 L. White blood cells 0.5, red blood cells of 2.26, platelets 34. Potassium 3.0, Hemoglobin A1c 8.2 MRSA screen was positive -isolation contact, decolonization protocol. Spoke to her oncologist Dr. Torre ([id number]) who suggested to give her 2 units of leuko-poor irradiated transfusion. He will see patient early next week. 02/23 Complains of more abdominal pain associated with n. She has poor appetite and does not want to eat. On oxygen via aerosol mask wbc 1.1, Hb 9.8, plt 24, K2.[address] abd Spoke to oncologist Dr. Torre felt that she does not need plts transfusion at the level unless she has bleeding. 02/24 Abdominal pain improving yesterday and today. No new complaints. Her platelets have dropped to 13. She has no bleeding. Patient states she had a shrimp salad from [employer] and it was after that that she start developing nausea vomiting diarrhea. Last had chemotherapy little week ago she says. Review of Systems: denies headache/fever/chills/nausea/vomiting/chest pain/cough/dyspnea. Otherwise see above. Constitutional Vitals: Vital Signs Temp Pulse Resp BP Pulse Ox 97.2 F 71 16 112/78 91 02/25/20 04:00 02/24/20 19:15 02/25/20 04:00 02/25/20 04:00 02/25/20 04:00 Period Temp Pulse Resp BP Sys/Plaza Pulse Ox Last 24 Hr 97.2 F-97.9 F 71-89 05-13 112-132/69-94 91-97 Intake and Output 02/24/20 02/25/20 02/25/20 21:59 05:59 13:59 Intake Total 1448 50 Output Total 2850 900 500 Balance -1402 -850 -500 Weight 85.684 kg Intake & Output: Intake & Output 02/24/20 02/25/20 02/25/20 21:59 05:59 13:59 Intake Total 1448 50 Output Total 2850 900 500 Balance -1402 -850 -500 Weight 85.684 kg Intake: IV 1048 50 Sodium Chloride 0.9% 1,000 ml @ 998 100 mls/hr IV .Q10H [facility] Rx#: [id number] Zosyn 3.375 gm In Dextrose 5% 50 50 in Water 50 ml @ 100 mls/hr IV Q6H [facility] Rx#:[id number] Oral 400 Output: Void Amount 200 Urine/Stool Mix 2850 700 500 Other: Stool Color Brown Exam: General: Alert, Awake, No acute Distress, obese Eyes/N/T: EOMI, Head/Neck: neck supple, CV: RRR, No murmurs, Pulm: diminished b/l, no wheezing Abd: soft, , +BS x4 Ext: no clubbing/cyanosis, b/l LE 1+ edema Neuro: Alert, no focal deficits, moves all extremities, Skin: warm/dry OBJ DATA Labs CBC & Chem 7: 02/25/20 05:15 02/25/20 05:15 Labs: Abnormal Lab Results 02/25/20 02/25/20 02/24/20 05:15 05:15 15:55 WBC 1.4 L RBC 2.92 L Hgb 8.6 L Hct 25.0 L POC Hct 25.0 L RDW 15.7 H Plt Count 13 L* MPV Gran % Lymph % (Auto) [place] % (Auto) Gran # Lymph # (Auto) [place] # (Auto) Sodium POC Potassium 3.2 L Potassium Carbon Dioxide 20 L POC Total CO2 18 L Glucose POC Glucose 129 H Hemoglobin A1c Uric Acid 2.2 L Calcium 8.3 L Phosphorus 2.5 L Total Bilirubin Lactate Dehydrogenase 331 H Total Protein 4.8 L Albumin 2.3 L Albumin/Globulin Ratio 0.9 L Triglycerides 225 H Vancomycin Trough 02/24/20 02/24/20 02/23/20 04:50 04:50 08:02 WBC 1.1 L RBC 3.31 L Hgb 9.8 L Hct 28.7 L POC Hct RDW 15.3 H Plt Count 24 L* MPV 10.5 H Gran % 16.2 L Lymph % (Auto) 82.9 H [place] % (Auto) 0.9 L Gran # 0.18 L* Lymph # (Auto) 0.92 L [place] # (Auto) 0.01 L Sodium POC Potassium Potassium 2.7 L* Carbon Dioxide 17 L POC Total CO2 Glucose POC Glucose Hemoglobin A1c Uric Acid Calcium 8.1 L Phosphorus Total Bilirubin 1.1 H Lactate Dehydrogenase Total Protein 5.3 L Albumin 2.4 L Albumin/Globulin Ratio 0.8 L Triglycerides Vancomycin Trough 24.9 H* 02/23/20 02/23/20 02/22/20 05:25 05:25 05:25 WBC 0.5 L* 0.5 L* RBC 2.26 L 2.73 L Hgb 6.6 L* 7.8 L Hct 19.7 L* 23.4 L POC Hct RDW 16.2 H 16.4 H Plt Count 34 L* 51 L MPV 10.5 H Gran % 14.3 L 13.3 L Lymph % (Auto) 81.6 H 75.6 H [place] % (Auto) Gran # 0.07 L* 0.06 L* Lymph # (Auto) 0.40 L 0.34 L [place] # (Auto) 0.02 L 0.02 L Sodium 130 L POC Potassium Potassium 3.0 L Carbon Dioxide 18 L POC Total CO2 Glucose 154 H POC Glucose Hemoglobin A1c Uric Acid Calcium 8.5 L Phosphorus Total Bilirubin Lactate Dehydrogenase Total Protein 5.0 L Albumin 2.4 L Albumin/Globulin Ratio 0.9 L Triglycerides Vancomycin Trough 02/22/20 05:25 WBC RBC Hgb Hct POC Hct RDW Plt Count MPV Gran % Lymph % (Auto) [place] % (Auto) Gran # Lymph # (Auto) [place] # (Auto) Sodium POC Potassium Potassium Carbon Dioxide POC Total CO2 Glucose POC Glucose Hemoglobin A1c 8.2 H Uric Acid Calcium Phosphorus Total Bilirubin Lactate Dehydrogenase Total Protein Albumin Albumin/Globulin Ratio Triglycerides Vancomycin Trough Meds: Medications Acetaminophen (Tylenol) 650 mg PO Q6HP PRN; Protocol PRN Reason: Per Pain Protocol/Fever > 101 Albuterol/Ipratropium (Duoneb) 3 ml NEB Q6HP PRN PRN Reason: Shortness Of Breath Dexamethasone (Decadron) 6 mg PO DAILY [facility] Dextrose (Dextrose 50%) 0 ml IV UD PRN PRN Reason: Hypoglycemia Diagnostic Test (Pha) (Accu-Chek) 1 each FS ACHS [facility] Last Admin: 02/24/20 21:01 Dose: 1 each Documented by: Docusate Sodium (Colace) 100 mg PO BID [facility] Last Admin: 02/24/20 21:03 Dose: Not Given Documented by: Famotidine (Pepcid) 20 mg PO HS [facility] Last Admin: 02/24/20 22:25 Dose: 20 mg Documented by: Fentanyl (Duragesic) 12 mcg TOPICAL Q72H [facility] Glucose (Insta-Glucose) 15 gm PO PRN PRN PRN Reason: Hypoglycemia Piperacillin Sod/Tazobactam (Sod 3.375 gm/ Dextrose) 50 mls @ 100 mls/hr IV Q6H [facility]; Protocol Last Admin: 02/25/20 06:13 Dose: 100 mls/hr Documented by: Vancomycin HCl 1,500 mg/ (Sodium Chloride) 500 mls @ 333.3 mls/hr IV Q24H [facility] Insulin Glargine (Lantus) 5 unit SQ QPM [facility] Last Admin: 02/24/20 21:02 Dose: 5 unit Documented by: Insulin Human Lispro (Humalog) 0 unit SQ [facility]; Protocol Last Admin: 02/24/20 21:01 Dose: 1 unit Documented by: Loperamide HCl (Imodium) 2 mg PO PRN PRN PRN Reason: Diarrhea Last Admin: 02/24/20 19:34 Dose: 2 mg Documented by: Melatonin (Melatonin 3mg Tablet) 6 mg PO [facility] PRN PRN Reason: Insomnia Last Admin: 02/24/20 22:25 Dose: 6 mg Documented by: Metoprolol Tartrate (Lopressor) 12.5 mg PO BID [facility] Last Admin: 02/24/20 21:04 Dose: 12.5 mg Documented by: Morphine Sulfate (Morphine) 2 mg IV Q4HP PRN; Protocol PRN Reason: Per Pain Protocol Last Admin: 02/24/20 19:17 Dose: 2 mg Documented by: Mupirocin (Bactroban Oint 2%) 1 dose NARES BID [facility] Last Admin: 02/24/20 21:06 Dose: 1 dose Documented by: Ondansetron HCl (Zofran) 4 mg IV Q6HP PRN PRN Reason: Nausea And Vomiting Pantoprazole Sodium (Protonix) 40 mg PO QAMAC [facility] Senna (Senokot) 2 tab PO HS [facility] Last Admin: 02/24/20 21:03 Dose: Not Given Documented by: Sodium Chloride (Saline Flush) 10 ml IV Q8 [facility] Last Admin: 02/25/20 06:13 Dose: 10 ml Documented by: Tramadol HCl (Ultram) 50 mg PO Q6HP PRN; Protocol PRN Reason: Pain Last Admin: 02/25/20 03:55 Dose: 50 mg Documented by: Vancomycin HCl (Vancomycin Per Pharmacy) 1 order IV UD [facility]; Protocol A/P Narrative A/P Narrative: A: *Acute and chronic hypoxic respiratory failure: -on 2L oxymask (wears 2L NC@home) *Pneumonia, HCA/CAP/Aspiration from N/V?: -CT chest with Large alveolar infiltrate throughout posterior RLL, Mod RUL/RML, Large alveolar infiltrate LLL -Blood culture no growth / Sputum culture pending, MRSA screen positive - decolonization -ST eval unremarkable *partial SBO: improved *Metastatic non-small cell lung cancer -CT chest, abdomen and pelvis showed evidence of metastatic cancer -As per patient and , she is on dexamethasone 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 diff Negative *Volume depletion: improved *Pancytopenia: -Spoke to her oncologist Dr. Torre ([id number]) who suggested 2 units leuko-poor irradiated transfusion -He will see patient early next week -PLTS 13<24<34<51. some component of dilution *Obesity: *Hypokalemia/ma/2 diarrhea P: -Vanco d/c, Zosyn -supp wean O2, IS/Acapella -home IH's, prn nebs -Continue dexamethasone as per oncology -transfuse platelets if <10k or bleeding -Diabetic diet, Continue Lantus 5 units daily, Insulin sliding scale, Glipizide is on hold -monitor CBC -restart torsemide in AM -seen by mercedes [employer] issues -home cpap -Electrolyte replacement prn -d/c with oral kcl and f/u lab outpt -patient who would like to be referred to GI after discharge -ppx: On Xarelto (held for thrombocytopenia, consider half-dose if between 30-50 and trending up given cancer), SCD/home ppi CODE STATUS: Metal Tester Spent With Patient Time: Total time spent is greater than 50% in coordination of care (as documented) at patient's floor/unit and/or counseling patient: QUALITY VTE Deep Vein Thrombosis/Pulmonary Embolism Present on Admission: No
[2020-02-25] MEDS: PANTOPRAZOLE 40 MG TABLET PO SCH (08:04)
[2020-02-25] MEDS: INSULIN LISPRO 1 UNIT/0.01 ML UNIT SQ SCH ×4 (08:12→22:05)
[2020-02-25] MEDS ORDERED: MAGNESIUM SULFATE 2 GM/50 ML BAG IV ONE (08:17)
[2020-02-25] MEDS ORDERED: POTASSIUM CHLORIDE 40 MEQ in DEXTROSE 5% IN WATER 500 ML IV ONE (08:18)
[2020-02-25] MEDS ORDERED: POTASSIUM CHLORIDE 20 MEQ PACKET PO ONE ×2 (08:47→18:31)
[2020-02-25] MEDS: DOCUSATE SODIUM 100 MG CAPSULE PO SCH ×2 (08:51→21:46)
[2020-02-25] MEDS ORDERED: VANCOMYCIN 1,500 MG in 0.9 % SODIUM CHLORIDE 500 ML IV SCH (09:00)
[2020-02-25] MEDS: MUPIROCIN OINT 2% 22GM NARES SCH ×2 (09:24→22:05)
[2020-02-25] MEDS: METOPROLOL TARTRATE 25 MG TABLET PO SCH ×2 (09:24→22:06)
[2020-02-25] MEDS: DEXAMETHASONE 4 MG TABLET PO SCH (09:24)
[2020-02-25] MEDS: morphine 4 MG/ML VIAL IV PRN (09:48)
[2020-02-25] MEDS ORDERED: ALBUMIN HUMAN 12.5 GM/50 ML BAG IV ONE (09:53)
[2020-02-25] MEDS ORDERED: FUROSEMIDE 40 MG/4 ML VIAL IV ONE (09:53)
[2020-02-25 09:54] LABS: Anisocytosis FEW (NONE SEEN); Eosinophils % (Manual) 1 % (0-7); Lymphocytes % 89 % (15-49); Platelet Estimate MK DECR (NORMAL); RBC Morphology ABNORM (NORMAL); Reactive Lymphocytes 2 % (0-2); Segmented Neutrophils % 8 % (38-78)
[2020-02-25] MEDS: LACTOBACILLUS 1 CAPSULE PO SCH ×2 (11:28→22:06)
--- NOTE | 2020-02-25 12:53 | XRay Report ---
CLINICAL INFORMATION: f/u ileus vs obtruction COMPARISON: Abdomen and pelvic CT 02/24/2020 FINDINGS: The stool gas pattern is nonspecific. Total amount of gas are seen only within the transverse and ascending colon. Only minimal amount of scattered within the small bowel the remaining large bowel and stomach. No free air, soft tissue mass or pathologic calcification. IMPRESSION: Nonspecific stool gas pattern. Consider small bowel follow-through to exclude small bowel obstruction which was suspected on CT yesterday Interpreted and Authenticated by: Jett Perez 02/25/20
[2020-02-25 17:14] LABS: POC Blood Urea Nitrogen 8 mg/dl (6-20); POC CO2 20 mmol/L (22-30); POC Chloride 101 mmol/L (96-108); POC Creatinine 0.7 mg/dl (0.6-1.1); POC Glucose, Random 198 mg/dL (70-105); POC Potassium 3.1 mmol/L (3.3-5.1); POC Sodium 134 mmol/L (133-145)
[2020-02-25] MEDS ORDERED: POTASSIUM CHLORIDE 20 MEQ TABLET PO ONE (17:21)
[2020-02-25] MEDS: SENNOSIDES 1 TABLET PO SCH (21:47)
[2020-02-25] MEDS: INSULIN GLARGINE, HUMAN 1 UNIT/0.01 ML SQ SCH (22:06)
[2020-02-25] MEDS: MELATONIN 3 MG TABLET PO PRN (22:06)
[2020-02-25] MEDS: FAMOTIDINE 20 MG TABLET PO SCH (22:06)
[2020-02-26] MEDS: PIPERACILLIN SODIUM/TAZOBACTAM 3.375 GM in DEXTROSE 5% IN WATER 50 ML IV SCH ×5 (00:50→23:30)
[2020-02-26] MEDS: 0.9 % SODIUM CHLORIDE 10 ML SYRINGE IV SCH ×3 (05:09→23:10)
--- NOTE | 2020-02-26 07:49 | Internal Med Progress Note ---
SUBJECTIVE Subjective Patient information: Note initiated : 02/26/20 at 7:47 am Service Date, if different from initiated Date: [] Patient: Shirley Novoa 49 y/o F admitted on 02/21/20 for abdominal pain. Chief Complaint: [] Interval history: Ms. Novoa is a 49 year old F with a past medical history of metastatic lung cancer, history of pulmonary embolisms, and COPD who presented to the ER due to abdominal pain and diarrhea x 2 days. As per patient and , she started to have upper abdominal pain associated with nausea, vomiting, and diarrhea. The pain is constant, sharp in nature and 4-8 out of 10 in severity. No radiation. She has been having 4-5 times bowel movements a day with the very loose yellow stool. Patient got pneumonia 3 weeks ago for which patient was hospitalized to [facility] in [place] for 2 weeks. Over there she was given IV antibiotics. She was just discharged to home last week. She was diagnosed with metastatic non-small cell lung cancer in October 2019. She received chemotherapy recently. In the ER, chest x-ray showed bilateral pneumonia. When I saw this patient in the ER, other than the symptoms mentioned above, she also complained of fatigue. Otherwise she denied headache, dizziness, chest pa in, dysuria, or changes in vision. 02/21 Patient still feels tired but better than yesterday. Denies fever, chills. Patient still has diarrhea. Patient had one bowel movement with loose stool this morning. C. difficile negative Tachycardia >100. WBC 0.5, platelet 51 MRSA screen positive -precaution contact and decolonization 02/22 Today patient feels much better, stronger. Less abdominal pain. She had one bowel movement this morning. Vital signs are stable and acceptable. She is on room air to 2 L oxygen. She has been home oxygen 2 L. White blood cells 0.5, red blood cells of 2.26, platelets 34. Potassium 3.0, Hemoglobin A1c 8.2 MRSA screen was positive -isolation contact, decolonization protocol. Spoke to her oncologist Dr. Torre ([phone]) who suggested to give her 2 units of leuko-poor irradiated transfusion. He will see patient early next week. 02/23 Complains of more abdominal pain associated with n. She has poor appetite and does not want to eat. On oxygen via aerosol mask wbc 1.1, Hb 9.8, plt 24, K2.[address] abd Spoke to oncologist Dr. Torre felt that she does not need plts transfusion at the level unless she has bleeding. 02/24 Abdominal pain improving yesterday and today. No new complaints. Her platelets have dropped to 13. She has no bleeding. Patient states she had a shrimp salad from [employer] and it was after that that she start developing nausea vomiting diarrhea. Last had chemotherapy little week ago she says. 02/25 States had several episode of diarrhea this morning. No new complaints. Still feels tired. Platelets dropped again will receive transfusion. Continue potassium replacement. Follow-up bowel follow-through to assess for partial small bowel obstruction. Review of Systems: denies headache/fever/chills/nausea/vomiting/chest pain/cough/dyspnea. Otherwise see above. Constitutional Vitals: Vital Signs Temp Pulse Resp BP Pulse Ox 98.2 F 72 16 114/81 89 L 02/26/20 00:00 02/26/20 06:00 02/26/20 00:00 02/26/20 05:17 02/26/20 06:00 Period Temp Pulse Resp BP Sys/Plaza Pulse Ox Last 24 Hr 97.0 F-98.2 F 65-88 16-22 107-128/67-85 89-99 Intake and Output 02/25/20 02/26/20 02/26/20 21:59 05:59 13:59 Intake Total 290 50 Balance 290 50 Weight 84.141 kg Intake & Output: Intake & Output 02/25/20 02/26/20 02/26/20 21:59 05:59 13:59 Intake Total 290 50 Balance 290 50 Weight 84.141 kg Intake: IV 50 50 Zosyn 3.375 gm In Dextrose 5% 50 50 in Water 50 ml @ 100 mls/hr IV Q6H [facility] Rx#:[id number] Oral 240 Other: Meal Dinner Percent of Meal Consumed 100% Exam: General: Alert, Awake, No acute Distress, obese Eyes/N/T: EOMI, Head/Neck: neck supple, CV: RRR, No murmurs, Pulm: diminished b/l, no wheezing Abd: soft, notender, +BS x4 Ext: no clubbing/cyanosis, b/l LE trace edema Neuro: Alert, no focal deficits, moves all extremities, Skin: warm/dry OBJ DATA Labs CBC & Chem 7: 02/26/20 05:05 02/26/20 05:05 Labs: Abnormal Lab Results 02/25/20 02/25/20 02/25/20 17:00 05:15 05:15 WBC 1.4 L RBC 2.92 L Hgb 8.6 L Hct 25.0 L POC Hct 27.0 L RDW 15.7 H Plt Count 13 L* MPV Gran % Lymph % (Auto) [place] % (Auto) Gran # Lymph # (Auto) [place] # (Auto) Seg Neutrophils % 8 L Lymphocytes % 89 H Platelet Estimate Mk decr A RBC Morphology Abnorm A Anisocytosis Few A POC Potassium 3.1 L Potassium 2.6 L* Carbon Dioxide 20 L POC Total CO2 20 L POC Glucose 198 H Uric Acid 2.2 L Calcium 8.3 L POC WB Ioniz Calcium 1.10 L Phosphorus 2.5 L Magnesium 1.3 L Total Bilirubin Lactate Dehydrogenase 331 H Total Protein 4.8 L Albumin 2.3 L Albumin/Globulin Ratio 0.9 L Triglycerides 225 H Vancomycin Trough 02/24/20 02/24/20 02/24/20 15:55 04:50 04:50 WBC 1.1 L RBC 3.31 L Hgb 9.8 L Hct 28.7 L POC Hct 25.0 L RDW 15.3 H Plt Count 24 L* MPV 10.5 H Gran % 16.2 L Lymph % (Auto) 82.9 H [place] % (Auto) 0.9 L Gran # 0.18 L* Lymph # (Auto) 0.92 L [place] # (Auto) 0.01 L Seg Neutrophils % Lymphocytes % Platelet Estimate RBC Morphology Anisocytosis POC Potassium 3.2 L Potassium 2.7 L* Carbon Dioxide 17 L POC Total CO2 18 L POC Glucose 129 H Uric Acid Calcium 8.1 L POC WB Ioniz Calcium Phosphorus Magnesium Total Bilirubin 1.1 H Lactate Dehydrogenase Total Protein 5.3 L Albumin 2.4 L Albumin/Globulin Ratio 0.8 L Triglycerides Vancomycin Trough 02/23/20 02/23/20 08:02 05:25 WBC 0.5 L* RBC 2.26 L Hgb 6.6 L* Hct 19.7 L* POC Hct RDW 16.2 H Plt Count 34 L* MPV Gran % 14.3 L Lymph % (Auto) 81.6 H [place] % (Auto) Gran # 0.07 L* Lymph # (Auto) 0.40 L [place] # (Auto) 0.02 L Seg Neutrophils % Lymphocytes % Platelet Estimate RBC Morphology Anisocytosis POC Potassium Potassium Carbon Dioxide POC Total CO2 POC Glucose Uric Acid Calcium POC WB Ioniz Calcium Phosphorus Magnesium Total Bilirubin Lactate Dehydrogenase Total Protein Albumin Albumin/Globulin Ratio Triglycerides Vancomycin Trough 24.9 H* Meds: Medications Acetaminophen (Tylenol) 650 mg PO Q6HP PRN; Protocol PRN Reason: Per Pain Protocol/Fever > 101 Albuterol/Ipratropium (Duoneb) 3 ml NEB Q6HP PRN PRN Reason: Shortness Of Breath Dexamethasone (Decadron) 6 mg PO DAILY [facility] Last Admin: 02/25/20 09:24 Dose: 6 mg Documented by: Dextrose (Dextrose 50%) 0 ml IV UD PRN PRN Reason: Hypoglycemia Diagnostic Test (Pha) (Accu-Chek) 1 each FS ACHS [facility] Last Admin: 02/25/20 22:05 Dose: 1 each Documented by: Docusate Sodium (Colace) 100 mg PO BID [facility] Last Admin: 02/25/20 21:46 Dose: Not Given Documented by: Famotidine (Pepcid) 20 mg PO HS [facility] Last Admin: 02/25/20 22:06 Dose: 20 mg Documented by: Fentanyl (Duragesic) 12 mcg TOPICAL Q72H [facility] Glucose (Insta-Glucose) 15 gm PO PRN PRN PRN Reason: Hypoglycemia Piperacillin Sod/Tazobactam (Sod 3.375 gm/ Dextrose) 50 mls @ 100 mls/hr IV Q6H [facility]; Protocol Last Admin: 02/26/20 05:08 Dose: 100 mls/hr Documented by: Insulin Glargine (Lantus) 5 unit SQ QPM [facility] Last Admin: 02/25/20 22:06 Dose: 5 unit Documented by: Insulin Human Lispro (Humalog) 0 unit SQ ACHS [facility]; Protocol Last Admin: 02/25/20 22:05 Dose: 1 unit Documented by: Lactobacillus Rhamnosus (Culturelle) 1 cap PO BID [facility] Last Admin: 02/25/20 22:06 Dose: 1 cap Documented by: Melatonin (Melatonin 3mg Tablet) 6 mg PO HSP PRN PRN Reason: Insomnia Last Admin: 02/25/20 22:06 Dose: 6 mg Documented by: Metoprolol Tartrate (Lopressor) 12.5 mg PO BID [facility] Last Admin: 02/25/20 22:06 Dose: 12.5 mg Documented by: Morphine Sulfate (Morphine) 2 mg IV Q4HP PRN; Protocol PRN Reason: Per Pain Protocol Last Admin: 02/25/20 09:48 Dose: 2 mg Documented by: Mupirocin (Bactroban Oint 2%) 1 dose NARES BID [facility] Last Admin: 02/25/20 22:05 Dose: 1 dose Documented by: Ondansetron HCl (Zofran) 4 mg IV Q6HP PRN PRN Reason: Nausea And Vomiting Pantoprazole Sodium (Protonix) 40 mg PO QAMAC [facility] Last Admin: 02/25/20 08:04 Dose: 40 mg Documented by: Senna (Senokot) 2 tab PO HS [facility] Last Admin: 02/25/20 21:47 Dose: Not Given Documented by: Sodium Chloride (Saline Flush) 10 ml IV Q8 [facility] Last Admin: 02/26/20 05:09 Dose: 10 ml Documented by: Torsemide (Demadex) 20 mg PO QDAY [facility] Tramadol HCl (Ultram) 50 mg PO Q6HP PRN; Protocol PRN Reason: Pain Last Admin: 02/25/20 18:02 Dose: 50 mg Documented by: A/P Narrative A/P Narrative: A: *Acute and chronic hypoxic respiratory failure: -on 2L oxymask (wears 2L NC@home) *Pneumonia, HCA/CAP/Aspiration from N/V?: -CT chest with Large alveolar infiltrate throughout posterior RLL, Mod RUL/RML, Large alveolar infiltrate LLL -Blood culture no growth / Sputum culture pending, MRSA screen positive - decolonization -ST eval unremarkable *?partial SBO: *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 diff Negative *Volume depletion: improved *Pancytopenia including Neutropenia/severe thrombocytopenia: 2/2 CA/Chemo -Spoke to her oncologist Dr. Torre ([id number]) who suggested 2 units leuko-poor irradiated transfusion -He will see patient early next week -PLTS 13<24<34<51. *Obesity: *Hypokalemia/ma/2 diarrhea P: -cont Zosyn -home O2 regimen, IS/Acapella -home IH's, prn nebs -Continue dexamethasone as per oncology -transfuse platelets if <10k or bleeding. transfuse platelets -GI Soft/ADA, Continue home Lantus 5 units daily, SSI, Glipizide is on hold -f/u Abd film -monitor CBC -restarted home torsemide -seen by ST no issues -home cpap -Electrolyte replacement prn -d/c with oral kcl (Klor-con) and f/u lab outpt -patient would like to be referred to GI after discharge -ppx: On Xarelto (held for thrombocytopenia, consider half-dose if between 30-50 and trending up given cancer), SCD/home ppi CODE STATUS: Cottage Master Spent With Patient Time: Total time spent is greater than 50% in coordination of care (as documented) at patient's floor/unit and/or counseling patient: QUALITY VTE Deep Vein Thrombosis/Pulmonary Embolism Present on Admission: No
[2020-02-26] MEDS ORDERED: POTASSIUM CHLORIDE 20 MEQ PACKET PO ONE (07:58)
[2020-02-26] MEDS ORDERED: POTASSIUM CHLORIDE 40 MEQ in DEXTROSE 5% IN WATER 500 ML IV ONE (07:59)
[2020-02-26 09:37] LABS: ALT/SGPT 18 U/L (<40); AST/SGOT 7 U/L (<32); Albumin 2.6 gm/dL (3.2-5.2); Alkaline Phosphatase 74 U/L (39-117); Basophils # (Auto) 0.01 K/mcL (0.00-0.20); Basophils % (Auto) 0.4 % (0.0-2.0); Bilirubin,Direct 0.2 mg/dL (<0.3); Bilirubin,Total 0.4 mg/dL (0.1-1.0); Blood Urea Nitrogen 9 mg/dL (6-20); Calcium 8.4 mg/dL (8.6-10.4); Carbon Dioxide 21 mmol/L (22-30); Chloride 103 mmol/L (96-108); Eosinophils # (Auto) 0 K/mcL (0.00-0.70); Eosinophils % (Auto) 0 % (0.0-7.0); Globulin 2.7 gm/dL (2.2-3.7); Glomerular Filtration Rate 102; Glucose 99 mg/dL (70-105); Hematocrit 27.4 % (36.0-48.0); Hemoglobin 9.4 g/dL (12.0-15.0); Lactate Dehydrogenase 352 U/L (135-225); Lymphocytes # (Auto) 1.69 K/mcL (1.50-4.80); Lymphocytes % (Auto) 74.1 % (15.0-49.0); Mean Cell Volume 85.1 fL (80.0-100.0); Mean Corpuscular HGB Conc 34.3 g/dL (31.0-36.0); Mean Platelet Volume 10.3 fL (7.4-10.4); Monocytes # (Auto) 0.02 K/mcL (0.10-0.90); Monocytes % (Auto) 0.9 % (1.0-12.0); Phosphorous 2.6 mg/dL (2.5-4.5); Platelet Count 9 K/mcL (140-440); RBC 3.22 M/mcL (4.00-5.20); Red Cell Distribution Width 15.6 % (11.5-14.5); Triglycerides 227 mg/dL (<150); Uric Acid 2.1 mg/dL (2.5-8.0); WBC 2.3 K/mcL (4.5-11.0)
[2020-02-26] MEDS: INSULIN LISPRO 1 UNIT/0.01 ML UNIT SQ SCH ×4 (09:49→23:09)
[2020-02-26] MEDS: PANTOPRAZOLE 40 MG TABLET PO SCH (10:10)
[2020-02-26] MEDS: LACTOBACILLUS 1 CAPSULE PO SCH ×2 (10:11→23:09)
[2020-02-26] MEDS: DEXAMETHASONE 4 MG TABLET PO SCH (10:11)
[2020-02-26] MEDS: DOCUSATE SODIUM 100 MG CAPSULE PO SCH ×2 (10:11→23:08)
[2020-02-26] MEDS: TORSEMIDE 10 MG TABLET PO SCH (10:12)
[2020-02-26] MEDS: METOPROLOL TARTRATE 25 MG TABLET PO SCH ×2 (10:13→23:10)
[2020-02-26] MEDS: POTASSIUM CHLORIDE 20 MEQ PACKET PO SCH ×3 (10:16→18:13)
[2020-02-26] MEDS ORDERED: MAGNESIUM SULFATE 2 GM/50 ML BAG IV ONE (10:23)
[2020-02-26] MEDS ORDERED: 0.9 % SODIUM CHLORIDE 250 ML IV SCH (10:30)
[2020-02-26] MEDS: MUPIROCIN OINT 2% 22GM NARES SCH ×2 (10:44→23:08)
[2020-02-26] MEDS ORDERED: PROCHLORPERAZINE 10 MG/2 ML VIAL IV PRN (13:08)
[2020-02-26] MEDS ORDERED: diphenhydrAMINE 50 MG/ML VIAL IV PRN (13:08)
[2020-02-26] MEDS: traMADol 50 MG TABLET PO PRN ×2 (13:28→23:12)
--- NOTE | 2020-02-26 16:46 | XRay Report ---
CLINICAL INFORMATION: ?obstruction TECHNIQUE: On sales relationship manager imaging, enteric contrast was administered and unfortunately, due to patient cooperation, only a single four film was generated. FINDINGS: The small large and bowel appear unremarkable. No evidence of obstruction. IMPRESSION: No evidence of small bowel obstruction. Negative Interpreted and Authenticated by: Jett Perez 02/26/20
[2020-02-26] MEDS ORDERED: LOPERAMIDE 2 MG CAPSULE PO ONE ×2 (19:18→20:20)
[2020-02-26] MEDS: SENNOSIDES 1 TABLET PO SCH (23:09)
[2020-02-26] MEDS: INSULIN GLARGINE, HUMAN 1 UNIT/0.01 ML SQ SCH (23:20)
[2020-02-27] MEDS: 0.9 % SODIUM CHLORIDE 10 ML SYRINGE IV SCH ×3 (05:29→23:14)
[2020-02-27] MEDS: PIPERACILLIN SODIUM/TAZOBACTAM 3.375 GM in DEXTROSE 5% IN WATER 50 ML IV SCH ×4 (05:29→23:25)
[2020-02-27 06:45] LABS: ALT/SGPT 24 U/L (<40); AST/SGOT 9 U/L (<32); Albumin 2.9 gm/dL (3.2-5.2); Albumin/Globulin Ratio 1.1 (1.0-2.3); Alkaline Phosphatase 81 U/L (39-117); Bilirubin,Direct 0.2 mg/dL (<0.3); Bilirubin,Total 0.7 mg/dL (0.1-1.0); Blood Urea Nitrogen 12 mg/dL (6-20); Carbon Dioxide 20 mmol/L (22-30); Chloride 104 mmol/L (96-108); Globulin 2.6 gm/dL (2.2-3.7); Glomerular Filtration Rate 87; Glucose 129 mg/dL (70-105); Lactate Dehydrogenase 370 U/L (135-225); Phosphorous 2.6 mg/dL (2.5-4.5); Triglycerides 273 mg/dL (<150); Uric Acid 2.4 mg/dL (2.5-8.0)
--- NOTE | 2020-02-27 07:12 | Internal Med Progress Note ---
SUBJECTIVE Subjective Patient information: Note initiated : 02/27/20 at 7:09 am Service Date, if different from initiated Date: [] Patient: Shirley Novoa 49 y/o F admitted on 02/21/20 for abdominal pain. Chief Complaint: [] Interval history: Ms. Novoa is a 49 year old F with a past medical history of metastatic lung cancer, history of pulmonary embolisms, and COPD who presented to the ER due to abdominal pain and diarrhea x 2 days. As per patient and , she started to have upper abdominal pain associated with nausea, vomiting, and diarrhea. The pain is constant, sharp in nature and 4-8 out of 10 in severity. No radiation. She has been having 4-5 times bowel movements a day with the very loose yellow stool. Patient got pneumonia 3 weeks ago for which patient was hospitalized to [facility] in [place] for 2 weeks. Over there she was given IV antibiotics. She was just discharged to home last week. She was diagnosed with metastatic non-small cell lung cancer in October 2019. She received chemotherapy recently. In the ER, chest x-ray showed bilateral pneumonia. When I saw this patient in the ER, other than the symptoms mentioned above, she also complained of fatigue. Otherwise she denied headache, dizziness, chest pa in, dysuria, or changes in vision. 02/21 Patient still feels tired but better than yesterday. Denies fever, chills. Patient still has diarrhea. Patient had one bowel movement with loose stool this morning. C. difficile negative Tachycardia >100. WBC 0.5, platelet 51 MRSA screen positive -precaution contact and decolonization 02/22 Today patient feels much better, stronger. Less abdominal pain. She had one bowel movement this morning. Vital signs are stable and acceptable. She is on room air to 2 L oxygen. She has been home oxygen 2 L. White blood cells 0.5, red blood cells of 2.26, platelets 34. Potassium 3.0, Hemoglobin A1c 8.2 MRSA screen was positive -isolation contact, decolonization protocol. Spoke to her oncologist Dr. Torre ([id number]) who suggested to give her 2 units of leuko-poor irradiated transfusion. He will see patient early next week. 02/23 Complains of more abdominal pain associated with n. She has poor appetite and does not want to eat. On oxygen via aerosol mask wbc 1.1, Hb 9.8, plt 24, K2.[address] abd Spoke to oncologist Dr. Torre felt that she does not need plts transfusion at the level unless she has bleeding. 02/24 Abdominal pain improving yesterday and today. No new complaints. Her platelets have dropped to 13. She has no bleeding. Patient states she had a shrimp salad from [employer] and it was after that that she start developing nausea vomiting diarrhea. Last had chemotherapy little week ago she says. 02/25 States had several episode of diarrhea this morning. No new complaints. Still feels tired. Platelets dropped again will receive transfusion. Continue potassium replacement. Follow-up bowel follow-through to assess for partial small bowel obstruction. 02/26 Diarrhea seems to be thickening up. Patient obviously not absorbing oral potassium as she had refused IV in the past and will need to return to IV supp lementation. She received platelet transfusion yesterday for platelets of 9000. No active bleeding. No new complaints overnight. Small bowel follow-through with no obstruction yesterday. Review of Systems: denies headache/fever/chills/nausea/vomiting/chest pain/cough/dyspnea. Otherwise see above. Constitutional Vitals: Vital Signs Temp Pulse Resp BP Pulse Ox 97.7 F 92 H 16 114/74 91 02/27/20 04:24 02/27/20 05:00 02/27/20 04:19 02/27/20 04:24 02/27/20 05:00 Period Temp Pulse Resp BP Sys/Plaza Pulse Ox Last 24 Hr 96.6 F-98.7 F 78-185 16-22 100-127/66-97 3-100 Intake and Output 02/26/20 02/27/20 02/27/20 21:59 05:59 13:59 Intake Total 1090 1470 Output Total 1050 150 Balance 40 1320 Weight 80.286 kg Intake & Output: Intake & Output 02/26/20 02/27/20 02/27/20 21:59 05:59 13:59 Intake Total 1090 1470 Output Total 1050 150 Balance 40 1320 Weight 80.286 kg Intake: Nourishment/Supplement quantity 240 (ml) IV 50 50 Zosyn 3.375 gm In Dextrose 5% 50 50 in Water 50 ml @ 100 mls/hr IV Q6H GEETA Rx#:[id number] Oral 1040 1180 Output: Void Amount 200 Urine/Stool Mix 800 150 Emesis 50 Other: Percent of Meal Consumed 75% Feeding Ability Independent Nourishment/Supplement name Glucerna Urine Appearance Clear Urine Color Straw Urine Odor Strong Stool Size Moderate Stool Consistency Loose # Voids 1 # Bowel Movements 1 Exam: General: Alert, Awake, No acute Distress, obese Eyes/N/T: EOMI, Head/Neck: neck supple, CV: RRR, No murmurs, Pulm: diminished b/l, no wheezing Abd: soft, notender, +BS x4 Ext: no clubbing/cyanosis, b/l LE trace edema Neuro: Alert, no focal deficits, moves all extremities, Skin: warm/dry OBJ DATA Labs CBC & Chem 7: 02/26/20 05:05 02/27/20 05:00 Labs: Abnormal Lab Results 02/27/20 02/26/20 02/26/20 05:00 05:05 05:05 WBC 2.3 L RBC 3.22 L Hgb 9.4 L Hct 27.4 L POC Hct RDW 15.6 H Plt Count 9 L* Lymph % (Auto) 74.1 H Hamilton % (Auto) 0.9 L Hamilton # (Auto) 0.02 L Seg Neutrophils % Lymphocytes % Platelet Estimate RBC Morphology Anisocytosis POC Potassium Potassium 2.5 L* 2.9 L* Carbon Dioxide 20 L 21 L POC Total CO2 Glucose 129 H POC Glucose Uric Acid 2.4 L 2.1 L Calcium 8.0 L 8.4 L POC WB Ioniz Calcium Phosphorus Magnesium 1.5 L Lactate Dehydrogenase 370 H 352 H Total Protein 5.5 L 5.3 L Albumin 2.9 L 2.6 L Albumin/Globulin Ratio Triglycerides 273 H 227 H 02/25/20 02/25/20 02/25/20 17:00 05:15 05:15 WBC 1.4 L RBC 2.92 L Hgb 8.6 L Hct 25.0 L POC Hct 27.0 L RDW 15.7 H Plt Count 13 L* Lymph % (Auto) Hamilton % (Auto) Hamilton # (Auto) Seg Neutrophils % 8 L Lymphocytes % 89 H Platelet Estimate Mk decr A RBC Morphology Abnorm A Anisocytosis Few A POC Potassium 3.1 L Potassium 2.6 L* Carbon Dioxide 20 L POC Total CO2 20 L Glucose POC Glucose 198 H Uric Acid 2.2 L Calcium 8.3 L POC WB Ioniz Calcium 1.10 L Phosphorus 2.5 L Magnesium 1.3 L Lactate Dehydrogenase 331 H Total Protein 4.8 L Albumin 2.3 L Albumin/Globulin Ratio 0.9 L Triglycerides 225 H 02/24/20 15:55 WBC RBC Hgb Hct POC Hct 25.0 L RDW Plt Count Lymph % (Auto) Hamilton % (Auto) Hamilton # (Auto) Seg Neutrophils % Lymphocytes % Platelet Estimate RBC Morphology Anisocytosis POC Potassium 3.2 L Potassium Carbon Dioxide POC Total CO2 18 L Glucose POC Glucose 129 H Uric Acid Calcium POC WB Ioniz Calcium Phosphorus Magnesium Lactate Dehydrogenase Total Protein Albumin Albumin/Globulin Ratio Triglycerides Meds: Medications Acetaminophen (Tylenol) 650 mg PO Q6HP PRN; Protocol PRN Reason: Per Pain Protocol/Fever > 101 Albuterol/Ipratropium (Duoneb) 3 ml NEB Q6HP PRN PRN Reason: Shortness Of Breath Dexamethasone (Decadron) 6 mg PO DAILY [facility] Last Admin: 02/26/20 10:11 Dose: 6 mg Documented by: Dextrose (Dextrose 50%) 0 ml IV UD PRN PRN Reason: Hypoglycemia Diagnostic Test (Pha) (Accu-Chek) 1 each FS [facility] Last Admin: 02/26/20 23:06 Dose: 1 each Documented by: Diphenhydramine HCl (Benadryl) 25 mg IV Q4-6HP PRN PRN Reason: Nausea/ Allergic Symptoms Docusate Sodium (Colace) 100 mg PO BID [facility] Last Admin: 02/26/20 23:08 Dose: Not Given Documented by: Fentanyl (Duragesic) 12 mcg TOPICAL Q72H [facility] Glucose (Insta-Glucose) 15 gm PO PRN PRN PRN Reason: Hypoglycemia Piperacillin Sod/Tazobactam (Sod 3.375 gm/ Dextrose) 50 mls @ 100 mls/hr IV Q6H [facility]; Protocol Last Admin: 02/27/20 05:29 Dose: 50 mls/hr Documented by: Insulin Glargine (Lantus) 5 unit SQ QPM [facility] Last Admin: 02/26/20 23:20 Dose: 5 unit Documented by: Insulin Human Lispro (Humalog) 0 unit SQ [facility]; Protocol Last Admin: 02/26/20 23:09 Dose: Not Given Documented by: Lactobacillus Rhamnosus (Culturelle) 1 cap PO BID [facility] Last Admin: 02/26/20 23:09 Dose: 1 cap Documented by: Loperamide HCl (Imodium) 2 mg PO PRN PRN PRN Reason: Diarrhea Melatonin (Melatonin 3mg Tablet) 6 mg PO HSP PRN PRN Reason: Insomnia Last Admin: 02/25/20 22:06 Dose: 6 mg Documented by: Metoprolol Tartrate (Lopressor) 12.5 mg PO BID [facility] Last Admin: 02/26/20 23:10 Dose: 12.5 mg Documented by: Morphine Sulfate (Morphine) 2 mg IV Q4HP PRN; Protocol PRN Reason: Per Pain Protocol Last Admin: 02/25/20 09:48 Dose: 2 mg Documented by: Mupirocin (Bactroban Oint 2%) 1 dose NARES BID [facility] Last Admin: 02/26/20 23:08 Dose: 1 dose Documented by: Ondansetron HCl (Zofran) 4 mg IV Q6HP PRN PRN Reason: Nausea And Vomiting Pantoprazole Sodium (Protonix) 40 mg PO QAMAC [facility] Last Admin: 02/26/20 10:10 Dose: 40 mg Documented by: Potassium Chloride (Klor-Con) 40 meq PO TIDCC [facility] Stop: 02/27/20 08:01 Last Admin: 02/26/20 18:13 Dose: 40 meq Documented by: Prochlorperazine (Compazine) 5 mg IV Q6HP PRN PRN Reason: Nausea And Vomiting Last Admin: 02/26/20 13:56 Dose: 5 mg Documented by: Senna (Senokot) 2 tab PO HS [facility] Last Admin: 02/26/20 23:09 Dose: Not Given Documented by: Sodium Chloride (Saline Flush) 10 ml IV Q8 [facility] Last Admin: 02/27/20 05:29 Dose: 10 ml Documented by: Torsemide (Demadex) 20 mg PO QDAY [facility] Last Admin: 02/26/20 10:12 Dose: 20 mg Documented by: Tramadol HCl (Ultram) 50 mg PO Q6HP PRN; Protocol PRN Reason: Pain Last Admin: 02/26/20 23:12 Dose: 50 mg Documented by: A/P Narrative A/P Narrative: A: *Acute and chronic hypoxic respiratory failure: -on 2L oxymask (wears 2L NC@home) *Pneumonia, HCA/CAP/Aspiration from N/V?: -CT chest with Large alveolar infiltrate throughout posterior RLL, Mod RUL/RML, Large alveolar infiltrate LLL -Blood culture no growth / Sputum culture pending, MRSA screen positive - decolonization -ST eval unremarkable *earlier imaging concerning for partial SBO: f/u small bowel follow through no SBO or ileus *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 diff Negative *Volume depletion: improved *Pancytopenia including Neutropenia/severe thrombocytopenia: 2/2 CA/Chemo -Spoke to her oncologist Dr. Torre ([id number]) who suggested 2 units leuko-poor irradiated transfusion -He will see patient early next week -PLTS <9<13<24<34<51. -s/p PLTS (02/25) *Obesity: *Hypokalemia/ma/2 diarrhea -pt refusing IV, but as we are able to see she is not absorbing the oral potassium given the diarrhea and possibly contributing to diarrhea P: -cont Zosyn -home O2 regimen, IS/Acapella -home IH's, prn nebs -Continue dexamethasone as per oncology -transfuse platelets if <10k or bleeding. transfuse platelets -Continue home Lantus 5 units daily, SSI, Glipizide is on hold -monitor CBC -restarted home torsemide -seen by ST, no issues -home cpap -Electrolyte replacement prn -replace potassium with IV since not absorbing oral -d/c with oral kcl (Klor-con) and f/u lab outpt -patient would like to be referred to GI after discharge -ppx: On Xarelto (held for thrombocytopenia, consider half-dose if between 30-50 and trending up given cancer), SCD/home ppi CODE STATUS: Facing Baster Jumpbasting Spent With Patient Time: Total time spent is greater than 50% in coordination of care (as documented) at patient's floor/unit and/or counseling patient: QUALITY VTE Deep Vein Thrombosis/Pulmonary Embolism Present on Admission: No
[2020-02-27] MEDS ORDERED: POTASSIUM CHLORIDE 80 MEQ in DEXTROSE 5% IN WATER 1,000 ML IV ONE (07:13)
[2020-02-27] MEDS: traMADol 50 MG TABLET PO PRN ×2 (07:21→16:08)
[2020-02-27] MEDS: PANTOPRAZOLE 40 MG TABLET PO SCH (07:22)
[2020-02-27] MEDS: POTASSIUM CHLORIDE 20 MEQ PACKET PO SCH (07:22)
[2020-02-27] MEDS: INSULIN LISPRO 1 UNIT/0.01 ML UNIT SQ SCH ×4 (07:25→23:10)
[2020-02-27] MEDS: LOPERAMIDE 2 MG CAPSULE PO PRN ×5 (08:42→23:12)
[2020-02-27] MEDS: DOCUSATE SODIUM 100 MG CAPSULE PO SCH ×2 (08:42→23:13)
[2020-02-27] MEDS: MUPIROCIN OINT 2% 22GM NARES SCH ×2 (08:42→23:13)
[2020-02-27] MEDS: TORSEMIDE 10 MG TABLET PO SCH (08:42)
[2020-02-27] MEDS ORDERED: CHOLESTYRAMINE/ASPARTAME 4 GM POWD.PACK PO ONE (09:01)
[2020-02-27] MEDS: DEXAMETHASONE 4 MG TABLET PO SCH (09:17)
[2020-02-27] MEDS: LACTOBACILLUS 1 CAPSULE PO SCH ×2 (09:17→23:12)
[2020-02-27] MEDS: fentaNYL 12 MCG PATCH TOPICAL SCH (10:30)
[2020-02-27] MEDS: METOPROLOL TARTRATE 25 MG TABLET PO SCH ×2 (10:54→23:13)
[2020-02-27 11:36] LABS: Anisocytosis 2+ (None Seen); Band Neutrophils % 1 % (0-10); Eosinophils % (Manual) 1 % (0-7); Hematocrit 26.9 % (36.0-48.0); Hemoglobin 9.7 g/dL (12.0-15.0); Lymphocytes % 87 % (15-49); Mean Cell Volume 88.5 fL (80.0-100.0); Mean Corpuscular HGB Conc 36.1 g/dL (31.0-36.0); Mean Platelet Volume 9.7 fL (7.4-10.4); Platelet Count 49 K/mcL (140-440); Platelet Estimate MARKEDLY DECREASED (Normal); RBC 3.04 M/mcL (4.00-5.20); RBC Morphology ABNORMAL (Normal); Red Cell Distribution Width 17.1 % (11.5-14.5); Segmented Neutrophils % 11 % (38-78); WBC 2.4 K/mcL (4.5-11.0)
[2020-02-27] MEDS ORDERED: DIPHENOXYLATE HCL/ATROPINE 1 TABLET PO PRN (14:38)
[2020-02-27] MEDS ORDERED: DIPHENOXYLATE HCL/ATROPINE 1 TABLET PO ONE (14:38)
[2020-02-27] MEDS ORDERED: BISMUTH SUBSALICYLATE 15 ML ORAL.SUSP PO ONE ×2 (14:41)
[2020-02-27 17:12] LABS: POC Blood Urea Nitrogen 11 mg/dL (6-20); POC CO2 18 mmol/L (22-30); POC Chloride 105 mEq/L (96-108); POC Creatinine 0.7 mg/dL (0.6-1.2); POC Glucose, Random 146 mg/dL (70-105); POC Hematocrit 27 % (36-48); POC Potassium 3.5 mEql/L (3.3-5.1); POC Sodium 137 mEq/L (133-145)
[2020-02-27] MEDS: INSULIN GLARGINE, HUMAN 1 UNIT/0.01 ML SQ SCH (23:11)
[2020-02-27] MEDS: MELATONIN 3 MG TABLET PO PRN (23:12)
[2020-02-27] MEDS: SENNOSIDES 1 TABLET PO SCH (23:14)
[2020-02-28] MEDS: LOPERAMIDE 2 MG CAPSULE PO PRN ×2 (04:41→11:15)
[2020-02-28] MEDS: 0.9 % SODIUM CHLORIDE 10 ML SYRINGE IV SCH ×3 (05:25→21:08)
[2020-02-28] MEDS: PIPERACILLIN SODIUM/TAZOBACTAM 3.375 GM in DEXTROSE 5% IN WATER 50 ML IV SCH (05:25)
--- NOTE | 2020-02-28 07:04 | Internal Med Progress Note ---
SUBJECTIVE Subjective Patient information: Note initiated : 02/28/20 at 7:02 am Service Date, if different from initiated Date: [] Patient: Shirley Novoa 49 y/o F admitted on 02/21/20 for abdominal pain. Chief Complaint: [] Interval history: Ms. Novoa is a 49 year old F with a past medical history of metastatic lung cancer, history of pulmonary embolisms, and COPD who presented to the ER due to abdominal pain and diarrhea x 2 days. As per patient and , she started to have upper abdominal pain associated with nausea, vomiting, and diarrhea. The pain is constant, sharp in nature and 4-8 out of 10 in severity. No radiation. She has been having 4-5 times bowel movements a day with the very loose yellow stool. Patient got pneumonia 3 weeks ago for which patient was hospitalized to [facility] in [place] for 2 weeks. Over there she was given IV antibiotics. She was just discharged to home last week. She was diagnosed with metastatic non-small cell lung cancer in October 2019. She received chemotherapy recently. In the ER, chest x-ray showed bilateral pneumonia. When I saw this patient in the ER, other than the symptoms mentioned above, she also complained of fatigue. Otherwise she denied headache, dizziness, chest pa in, dysuria, or changes in vision. 02/21 Patient still feels tired but better than yesterday. Denies fever, chills. Patient still has diarrhea. Patient had one bowel movement with loose stool this morning. C. difficile negative Tachycardia >100. WBC 0.5, platelet 51 MRSA screen positive -precaution contact and decolonization 02/22 Today patient feels much better, stronger. Less abdominal pain. She had one bowel movement this morning. Vital signs are stable and acceptable. She is on room air to 2 L oxygen. She has been home oxygen 2 L. White blood cells 0.5, red blood cells of 2.26, platelets 34. Potassium 3.0, Hemoglobin A1c 8.2 MRSA screen was positive -isolation contact, decolonization protocol. Spoke to her oncologist Dr. Torre ([id number]) who suggested to give her 2 units of leuko-poor irradiated transfusion. He will see patient early next week. 02/23 Complains of more abdominal pain associated with n. She has poor appetite and does not want to eat. On oxygen via aerosol mask wbc 1.1, Hb 9.8, plt 24, K2.[address] abd Spoke to oncologist Dr. Torre felt that she does not need plts transfusion at the level unless she has bleeding. 02/24 Abdominal pain improving yesterday and today. No new complaints. Her platelets have dropped to 13. She has no bleeding. Patient states she had a shrimp salad from [employer] and it was after that that she start developing nausea vomiting diarrhea. Last had chemotherapy little week ago she says. 02/25 States had several episode of diarrhea this morning. No new complaints. Still feels tired. Platelets dropped again will receive transfusion. Continue potassium replacement. Follow-up bowel follow-through to assess for partial small bowel obstruction. 02/26 Diarrhea seems to be thickening up. Patient obviously not absorbing oral potassium as she had refused IV in the past and will need to return to IV supp lementation. She received platelet transfusion yesterday for platelets of 9000. No active bleeding. No new complaints overnight. Small bowel follow-through with no obstruction yesterday. 02/27 Patient had decreased frequency of diarrhea last night and per nursing seems to be thickening up a little bit. No new pains or complaints. Awaiting laboratory. Review of Systems: denies headache/fever/chills/nausea/vomiting/chest pain/cough/dyspnea. Otherwise see above. Constitutional Vitals: Vital Signs Temp Pulse Resp BP Pulse Ox 97.1 F 94 H 18 103/73 98 02/28/20 04:53 02/28/20 06:00 02/28/20 04:53 02/28/20 04:53 02/28/20 07:00 Period Temp Pulse Resp BP Sys/Plaza Pulse Ox Last 24 Hr 96.3 F-98.8 F 83-113 14-20 99-121/64-94 94-100 Intake and Output 02/27/20 02/28/20 02/28/20 21:59 05:59 13:59 Intake Total 1730 1180 Output Total 1300 Balance 1730 -120 Weight 81.374 kg Intake & Output: Intake & Output 02/27/20 02/28/20 02/28/20 21:59 05:59 13:59 Intake Total 1730 1180 Output Total 1300 Balance 1730 -120 Weight 81.374 kg Intake: Nourishment/Supplement quantity 240 (ml) IV 1090 100 Zosyn 3.375 gm In Dextrose 5% 50 100 in Water 50 ml @ 100 mls/hr IV Q6H [facility] Rx#:[id number] Potassium Chloride 80 Meq In 1040 Dextrose 5% in Water 1,000 ml @ 130 mls/hr IV ONCE ONE Rx#: [id number] Oral 640 840 Output: Urine/Stool Mix 1300 Other: Meal Dinner Percent of Meal Consumed 25% Nourishment/Supplement name Glucadolfo Exam: General: Alert, Awake, No acute Distress, obese Eyes/N/T: EOMI, Head/Neck: neck supple, CV: RRR, No murmurs, Pulm: diminished b/l, no wheezing Abd: soft, notender, +BS x4 Ext: no clubbing/cyanosis, b/l LE trace edema Neuro: Alert, no focal deficits, moves all extremities, Skin: warm/dry OBJ DATA Labs CBC & Chem 7: 02/27/20 05:00 02/27/20 05:00 Labs: Abnormal Lab Results 02/27/20 02/27/20 02/27/20 17:04 05:00 05:00 WBC 2.4 L RBC 3.04 L Hgb 9.7 L Hct 26.9 L POC Hct 27 L MCHC 36.1 H RDW 17.1 H Plt Count 49 L* Lymph % (Auto) Harlan % (Auto) Harlan # (Auto) Seg Neutrophils % 11 L Lymphocytes % 87 H Platelet Estimate Markedly decreased A RBC Morphology Abnormal A Anisocytosis 2+ A POC Potassium Potassium 2.5 L* Carbon Dioxide 20 L POC Total CO2 18 L Glucose 129 H POC Glucose 146 H Uric Acid 2.4 L Calcium 8.0 L POC WB Ioniz Calcium 1.10 L Phosphorus Magnesium Lactate Dehydrogenase 370 H Total Protein 5.5 L Albumin 2.9 L Albumin/Globulin Ratio Triglycerides 273 H 02/26/20 02/26/20 02/25/20 05:05 05:05 17:00 WBC 2.3 L RBC 3.22 L Hgb 9.4 L Hct 27.4 L POC Hct 27.0 L MCHC RDW 15.6 H Plt Count 9 L* Lymph % (Auto) 74.1 H Harlan % (Auto) 0.9 L Harlan # (Auto) 0.02 L Seg Neutrophils % Lymphocytes % Platelet Estimate RBC Morphology Anisocytosis POC Potassium 3.1 L Potassium 2.9 L* Carbon Dioxide 21 L POC Total CO2 20 L Glucose POC Glucose 198 H Uric Acid 2.1 L Calcium 8.4 L POC WB Ioniz Calcium 1.10 L Phosphorus Magnesium 1.5 L Lactate Dehydrogenase 352 H Total Protein 5.3 L Albumin 2.6 L Albumin/Globulin Ratio Triglycerides 227 H 02/25/20 02/25/20 05:15 05:15 WBC RBC Hgb Hct POC Hct MCHC RDW Plt Count Lymph % (Auto) Harlan % (Auto) Harlan # (Auto) Seg Neutrophils % 8 L Lymphocytes % 89 H Platelet Estimate Mk decr A RBC Morphology Abnorm A Anisocytosis Few A POC Potassium Potassium 2.6 L* Carbon Dioxide 20 L POC Total CO2 Glucose POC Glucose Uric Acid 2.2 L Calcium 8.3 L POC WB Ioniz Calcium Phosphorus 2.5 L Magnesium 1.3 L Lactate Dehydrogenase 331 H Total Protein 4.8 L Albumin 2.3 L Albumin/Globulin Ratio 0.9 L Triglycerides 225 H Meds: Medications Acetaminophen (Tylenol) 650 mg PO Q6HP PRN; Protocol PRN Reason: Per Pain Protocol/Fever > 101 Albuterol/Ipratropium (Duoneb) 3 ml NEB Q6HP PRN PRN Reason: Shortness Of Breath Dexamethasone (Decadron) 6 mg PO DAILY [facility] Last Admin: 02/27/20 09:17 Dose: 6 mg Documented by: Dextrose (Dextrose 50%) 0 ml IV UD PRN PRN Reason: Hypoglycemia Diagnostic Test (Pha) (Accu-Chek) 1 each FS ACHS [facility] Last Admin: 02/27/20 23:10 Dose: 1 each Documented by: Diphenhydramine HCl (Benadryl) 25 mg IV Q4-6HP PRN PRN Reason: Nausea/ Allergic Symptoms Diphenoxylate HCl/Atropine (Lomotil) 1 tab PO Q6HP PRN PRN Reason: Diarrhea Docusate Sodium (Colace) 100 mg PO BID [facility] Last Admin: 02/27/20 23:13 Dose: Not Given Documented by: Fentanyl (Duragesic) 12 mcg TOPICAL Q72H [facility] Last Admin: 02/27/20 10:30 Dose: 12 mcg Documented by: Glucose (Insta-Glucose) 15 gm PO PRN PRN PRN Reason: Hypoglycemia Piperacillin Sod/Tazobactam (Sod 3.375 gm/ Dextrose) 50 mls @ 100 mls/hr IV Q6H [facility]; Protocol Last Infusion: 02/28/20 05:55 Dose: Infused Documented by: Insulin Glargine (Lantus) 5 unit SQ QPM [facility] Last Admin: 02/27/20 23:11 Dose: 5 unit Documented by: Insulin Human Lispro (Humalog) 0 unit SQ ACHS [facility]; Protocol Last Admin: 02/27/20 23:10 Dose: 2 unit Documented by: Lactobacillus Rhamnosus (Culturelle) 1 cap PO BID [facility] Last Admin: 02/27/20 23:12 Dose: 1 cap Documented by: Loperamide HCl (Imodium) 2 mg PO PRN PRN PRN Reason: Diarrhea Last Admin: 02/28/20 04:41 Dose: 2 mg Documented by: Melatonin (Melatonin 3mg Tablet) 6 mg PO HSP PRN PRN Reason: Insomnia Last Admin: 02/27/20 23:12 Dose: 6 mg Documented by: Metoprolol Tartrate (Lopressor) 12.5 mg PO BID [facility] Last Admin: 02/27/20 23:13 Dose: 12.5 mg Documented by: Morphine Sulfate (Morphine) 2 mg IV Q4HP PRN; Protocol PRN Reason: Per Pain Protocol Last Admin: 02/25/20 09:48 Dose: 2 mg Documented by: Mupirocin (Bactroban Oint 2%) 1 dose NARES BID [facility] Last Admin: 02/27/20 23:13 Dose: 1 dose Documented by: Ondansetron HCl (Zofran) 4 mg IV Q6HP PRN PRN Reason: Nausea And Vomiting Pantoprazole Sodium (Protonix) 40 mg PO QAMAC [facility] Last Admin: 02/27/20 07:22 Dose: 40 mg Documented by: Prochlorperazine (Compazine) 5 mg IV Q6HP PRN PRN Reason: Nausea And Vomiting Last Admin: 02/26/20 13:56 Dose: 5 mg Documented by: Senna (Senokot) 2 tab PO HS [facility] Last Admin: 02/27/20 23:14 Dose: Not Given Documented by: Sodium Chloride (Saline Flush) 10 ml IV Q8 [facility] Last Admin: 02/28/20 05:25 Dose: 10 ml Documented by: Torsemide (Demadex) 20 mg PO QDAY [facility] Last Admin: 02/27/20 08:42 Dose: 20 mg Documented by: Tramadol HCl (Ultram) 50 mg PO Q6HP PRN; Protocol PRN Reason: Pain Last Admin: 02/27/20 16:08 Dose: 50 mg Documented by: A/P Narrative A/P Narrative: A: *Acute and chronic hypoxic respiratory failure: -on 2L oxymask (wears 2L NC@home) *Pneumonia, HCA/CAP/Aspiration from N/V?: stable -CT chest with Large alveolar infiltrate throughout posterior RLL, Mod RUL/RML, Large alveolar infiltrate LLL -Blood culture no growth / Sputum culture pending, MRSA screen positive -decolonization -ST eval unremarkable *Acute gastroenteritis(Diarrhea remains): -Stool studies including c. diff Negative *earlier imaging concerning for partial SBO: f/u small bowel follow through no SBO or ileus *Pancytopenia including Neutropenia/severe thrombocytopenia: 2/2 CA/Chemo -Spoke to her oncologist Dr. Torre ([id number]) who suggested 2 units leuko-poor irradiated transfusion -He will see patient early next week -PLTS <9<13<24<34<51. 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 transfuse platelets -Continue home Lantus 5 units daily, SSI, Glipizide is on hold -monitor CBC -restarted home torsemide -seen by mercedes MCLAUGHLIN issues -home cpap -Electrolyte replacement prn -replace potassium with IV since not absorbing oral given diarrhea -d/c with oral kcl (Klor-con) and f/u lab outpt -patient would like to be referred to GI after discharge -ppx: On Xarelto (held for thrombocytopenia, consider half-dose if between 30-50 and trending up given cancer), SCD/home ppi CODE STATUS: Cerner Analyst Spent With Patient Time: Total time spent is greater than 50% in coordination of care (as documented) at patient's floor/unit and/or counseling patient: QUALITY VTE Deep Vein Thrombosis/Pulmonary Embolism Present on Admission: No
[2020-02-28] MEDS: PANTOPRAZOLE 40 MG TABLET PO SCH (07:20)
[2020-02-28] MEDS: INSULIN LISPRO 1 UNIT/0.01 ML UNIT SQ SCH ×4 (07:22→21:05)
[2020-02-28] MEDS: traMADol 50 MG TABLET PO PRN ×3 (07:37→22:31)
[2020-02-28 09:07] LABS: POC Blood Urea Nitrogen 12 mg/dL (6-20); POC CO2 20 mmol/L (22-30); POC Calcium, Ionized 1.07 mmEq/L (1.16-1.32); POC Chloride 102 mEq/L (96-108); POC Creatinine 0.6 mg/dL (0.6-1.2); POC Glucose, Random 106 mg/dL (70-105); POC Hematocrit 23 % (36-48); POC Potassium 2.7 mEql/L (3.3-5.1); POC Sodium 135 mEq/L (133-145)
[2020-02-28] MEDS ORDERED: POTASSIUM CHLORIDE 40 MEQ in DEXTROSE 5% IN WATER 500 ML IV ONE ×2 (09:12→14:30)
[2020-02-28] MEDS ORDERED: CHOLESTYRAMINE/ASPARTAME 4 GM POWD.PACK PO ONE (09:13)
[2020-02-28] MEDS: MUPIROCIN OINT 2% 22GM NARES SCH ×2 (10:25→21:07)
[2020-02-28] MEDS: TORSEMIDE 10 MG TABLET PO SCH (10:25)
[2020-02-28] MEDS: METOPROLOL TARTRATE 25 MG TABLET PO SCH ×2 (10:26→21:06)
[2020-02-28] MEDS: LACTOBACILLUS 1 CAPSULE PO SCH ×2 (10:27→21:06)
[2020-02-28] MEDS: DIPHENOXYLATE HCL/ATROPINE 1 TABLET PO SCH ×3 (10:28→22:30)
[2020-02-28] MEDS: CEFEPIME 2 GM VIAL IV SCH ×2 (10:30→21:07)
[2020-02-28] MEDS: DOCUSATE SODIUM 100 MG CAPSULE PO SCH ×2 (10:30→21:10)
[2020-02-28] MEDS: DEXAMETHASONE 4 MG TABLET PO SCH (11:04)
[2020-02-28 11:13] LABS: ALT/SGPT 27 U/L (<40); AST/SGOT 11 U/L (<32); Albumin 2.8 gm/dL (3.2-5.2); Alkaline Phosphatase 92 U/L (39-117); Bilirubin,Direct < 0.2 mg/dL (<0.3); Bilirubin,Total 0.7 mg/dL (0.1-1.0); Blood Urea Nitrogen 13 mg/dL (6-20); Calcium 8.2 mg/dL (8.6-10.4); Carbon Dioxide 19 mmol/L (22-30); Chloride 101 mmol/L (96-108); Globulin 2.7 gm/dL (2.2-3.7); Glomerular Filtration Rate 102; Glucose 108 mg/dL (70-105); Lactate Dehydrogenase 348 U/L (135-225); Phosphorous 2.7 mg/dL (2.5-4.5); Triglycerides 298 mg/dL (<150); Uric Acid 2.3 mg/dL (2.5-8.0)
[2020-02-28] MEDS ORDERED: MAGNESIUM SULFATE 24.36 MEQ in DEXTROSE 5% IN WATER 50 ML IV ONE (11:18)
[2020-02-28] MEDS ORDERED: MAGNESIUM SULFATE 4 GM/100 ML BAG IV SCH (11:30)
[2020-02-28 12:14] LABS: Eosinophils % (Manual) 1 % (0-7); Hematocrit 26.5 % (36.0-48.0); Hemoglobin 9.6 g/dL (12.0-15.0); Lymphocytes % 70 % (15-49); Mean Cell Volume 84.4 fL (80.0-100.0); Mean Corpuscular HGB Conc 36.2 g/dL (31.0-36.0); Mean Platelet Volume 9.9 fL (7.4-10.4); Monocytes % (Manual) 1 % (1-12); Platelet Estimate MARKEDLY DECREASED (Normal); RBC 3.14 M/mcL (4.00-5.20); RBC Morphology NORMAL (Normal); Red Cell Distribution Width 16.1 % (11.5-14.5); Segmented Neutrophils % 28 % (38-78)
[2020-02-28] MEDS ORDERED: RIVAROXABAN 20 MG TABLET PO ONE (12:45)
[2020-02-28] MEDS: metroNIDAZOLE 500 MG TABLET PO SCH ×2 (13:54→22:37)
[2020-02-28] MEDS: INSULIN GLARGINE, HUMAN 1 UNIT/0.01 ML SQ SCH (21:05)
[2020-02-28] MEDS: SENNOSIDES 1 TABLET PO SCH (21:10)
[2020-02-28] MEDS: MELATONIN 3 MG TABLET PO PRN (22:31)
[2020-02-29] MEDS: 0.9 % SODIUM CHLORIDE 10 ML SYRINGE IV SCH ×3 (05:23→20:59)
[2020-02-29] MEDS: metroNIDAZOLE 500 MG TABLET PO SCH ×3 (05:23→20:57)
--- NOTE | 2020-02-29 07:10 | Internal Med Progress Note ---
SUBJECTIVE Subjective Patient information: Note initiated : 02/29/20 at 7:10 am Service Date, if different from initiated Date: [] Patient: Shirley Novoa 49 y/o F admitted on 02/21/20 for abdominal pain. Chief Complaint: [] Interval history: Ms. Novoa is a 49 year old F with a past medical history of metastatic lung cancer, history of pulmonary embolisms, and COPD who presented to the ER due to abdominal pain and diarrhea x 2 days. As per patient and , she started to have upper abdominal pain associated with nausea, vomiting, and diarrhea. The pain is constant, sharp in nature and 4-8 out of 10 in severity. No radiation. She has been having 4-5 times bowel movements a day with the very loose yellow stool. Patient got pneumonia 3 weeks ago for which patient was hospitalized to [facility] in [place] for 2 weeks. Over there she was given IV antibiotics. She was just discharged to home last week. She was diagnosed with metastatic non-small cell lung cancer in October 2019. She received chemotherapy recently. In the ER, chest x-ray showed bilateral pneumonia. When I saw this patient in the ER, other than the symptoms mentioned above, she also complained of fatigue. Otherwise she denied headache, dizziness, chest pa in, dysuria, or changes in vision. 02/21 Patient still feels tired but better than yesterday. Denies fever, chills. Patient still has diarrhea. Patient had one bowel movement with loose stool this morning. C. difficile negative Tachycardia >100. WBC 0.5, platelet 51 MRSA screen positive -precaution contact and decolonization 02/22 Today patient feels much better, stronger. Less abdominal pain. She had one bowel movement this morning. Vital signs are stable and acceptable. She is on room air to 2 L oxygen. She has been home oxygen 2 L. White blood cells 0.5, red blood cells of 2.26, platelets 34. Potassium 3.0, Hemoglobin A1c 8.2 MRSA screen was positive -isolation contact, decolonization protocol. Spoke to her oncologist Dr. Torre ([phone]) who suggested to give her 2 units of leuko-poor irradiated transfusion. He will see patient early next week. 02/23 Complains of more abdominal pain associated with n. She has poor appetite and does not want to eat. On oxygen via aerosol mask wbc 1.1, Hb 9.8, plt 24, K2.[address] abd Spoke to oncologist Dr. Torre felt that she does not need plts transfusion at the level unless she has bleeding. 02/24 Abdominal pain improving yesterday and today. No new complaints. Her platelets have dropped to 13. She has no bleeding. Patient states she had a shrimp salad from [employer] and it was after that that she start developing nausea vomiting diarrhea. Last had chemotherapy little week ago she says. 02/25 States had several episode of diarrhea this morning. No new complaints. Still feels tired. Platelets dropped again will receive transfusion. Continue potassium replacement. Follow-up bowel follow-through to assess for partial small bowel obstruction. 02/26 Diarrhea seems to be thickening up. Patient obviously not absorbing oral potassium as she had refused IV in the past and will need to return to IV supp lementation. She received platelet transfusion yesterday for platelets of 9000. No active bleeding. No new complaints overnight. Small bowel follow-through with no obstruction yesterday. 02/27 Patient had decreased frequency of diarrhea last night and per nursing seems to be thickening up a little bit. No new pains or complaints. Awaiting laboratory. 02/28 Patient slept better last night. 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 Just had 1 more this morning. Diarrhea frequency improving. Awaiting follow-up labs. Review of Systems: denies headache/fever/chills/nausea/vomiting/chest pain/cough/dyspnea. Otherwise see above. Constitutional Vitals: Vital Signs Temp Pulse Resp BP Pulse Ox 98.0 F 76 16 126/90 96 02/29/20 03:55 02/29/20 06:00 02/29/20 03:55 02/29/20 03:55 02/29/20 06:00 Period Temp Pulse Resp BP Sys/Plaza Pulse Ox Last 24 Hr 96.4 F-98.0 F 76-118 14-16 99-126/73-90 92-98 Intake and Output 02/28/20 02/29/20 02/29/20 21:59 05:59 13:59 Intake Total 2260 200 Output Total 2550 400 Balance -290 -200 Weight 80.876 kg Intake & Output: Intake & Output 02/28/20 02/29/20 02/29/20 21:59 05:59 13:59 Intake Total 2260 200 Output Total 2550 400 Balance -290 -200 Weight 80.876 kg Intake: Nourishment/Supplement quantity 240 (ml) IV 1140 Potassium Chloride 40 Meq In 1040 Dextrose 5% in Water 500 ml @ 130 mls/hr IV ONCE ONE Rx#: [id number] Oral 880 200 Output: Void Amount 1950 400 Stool 600 Other: Meal Dinner Percent of Meal Consumed 50% Feeding Ability Independent Nourishment/Supplement name Ensure Urine Appearance Clear Clear Urine Color Bright Yellow Bright Yellow Urine Odor Normal Normal Stool Size Small Stool Color Yellow Stool Consistency Loose # Bowel Movements 1 Exam: General: Alert, Awake, No acute Distress, obese Eyes/N/T: EOMI, Head/Neck: neck supple, CV: RRR, No murmurs, Pulm: diminished b/l, no wheezing Abd: soft, notender, +BS x4 Ext: no clubbing/cyanosis, b/l LE trace edema Neuro: Alert, no focal deficits, moves all extremities, Skin: warm/dry OBJ DATA Labs CBC & Chem 7: 02/28/20 08:42 02/28/20 08:42 Labs: Abnormal Lab Results 02/28/20 02/28/20 02/28/20 08:42 08:42 08:42 WBC 3.0 L RBC 3.14 L Hgb 9.6 L Hct 26.5 L POC Hct 23 L MCHC 36.2 H RDW 16.1 H Plt Count 37 L* Lymph % (Auto) Dubois % (Auto) Dubois # (Auto) Seg Neutrophils % 28 L Lymphocytes % 70 H Platelet Estimate Markedly decreased A RBC Morphology Anisocytosis Sodium POC Potassium 2.7 L* Potassium 2.8 L* Carbon Dioxide 19 L POC Total CO2 20 L Glucose 108 H POC Glucose 106 H Uric Acid 2.3 L Calcium 8.2 L POC WB Ioniz Calcium 1.07 L Magnesium 1.3 L Lactate Dehydrogenase 348 H Total Protein 5.5 L Albumin 2.8 L Triglycerides 298 H 02/28/20 02/27/20 02/27/20 04:56 17:04 05:00 WBC RBC Hgb Hct POC Hct 27 L MCHC RDW Plt Count Lymph % (Auto) Dubois % (Auto) Dubois # (Auto) Seg Neutrophils % Lymphocytes % Platelet Estimate RBC Morphology Anisocytosis Sodium L POC Potassium Potassium 2.5 L* Carbon Dioxide L 20 L POC Total CO2 18 L Glucose H 129 H POC Glucose 146 H Uric Acid 2.4 L Calcium L 8.0 L POC WB Ioniz Calcium 1.10 L Magnesium Lactate Dehydrogenase 370 H Total Protein 5.5 L Albumin 2.9 L Triglycerides 273 H 02/27/20 02/26/20 02/26/20 05:00 05:05 05:05 WBC 2.4 L 2.3 L RBC 3.04 L 3.22 L Hgb 9.7 L 9.4 L Hct 26.9 L 27.4 L POC Hct MCHC 36.1 H RDW 17.1 H 15.6 H Plt Count 49 L* 9 L* Lymph % (Auto) 74.1 H Dubois % (Auto) 0.9 L [place]ois # (Auto) 0.02 L Seg Neutrophils % 11 L Lymphocytes % 87 H Platelet Estimate Markedly decreased A RBC Morphology Abnormal A Anisocytosis 2+ A Sodium POC Potassium Potassium 2.9 L* Carbon Dioxide 21 L POC Total CO2 Glucose POC Glucose Uric Acid 2.1 L Calcium 8.4 L POC WB Ioniz Calcium Magnesium 1.5 L Lactate Dehydrogenase 352 H Total Protein 5.3 L Albumin 2.6 L Triglycerides 227 H Meds: Medications Acetaminophen (Tylenol) 650 mg PO Q6HP PRN; Protocol PRN Reason: Per Pain Protocol/Fever > 101 Albuterol/Ipratropium (Duoneb) 3 ml NEB Q6HP PRN PRN Reason: Shortness Of Breath Cefepime HCl (Maxipime) 2 gm IV Q12H [facility]; Protocol Last Admin: 02/28/20 21:07 Dose: 2 gm Documented by: Dexamethasone (Decadron) 6 mg PO DAILY [facility] Last Admin: 02/28/20 11:04 Dose: 6 mg Documented by: Dextrose (Dextrose 50%) 0 ml IV UD PRN PRN Reason: Hypoglycemia Diagnostic Test (Pha) (Accu-Chek) 1 each FS ACHS [facility] Last Admin: 02/28/20 21:05 Dose: 1 each Documented by: Diphenhydramine HCl (Benadryl) 25 mg IV Q4-6HP PRN PRN Reason: Nausea/ Allergic Symptoms Diphenoxylate HCl/Atropine (Lomotil) 1 tab PO Q6HP PRN PRN Reason: Diarrhea Docusate Sodium (Colace) 100 mg PO BID [facility] Last Admin: 02/28/20 21:10 Dose: Not Given Documented by: Fentanyl (Duragesic) 12 mcg TOPICAL Q72H [facility] Last Admin: 02/27/20 10:30 Dose: 12 mcg Documented by: Glucose (Insta-Glucose) 15 gm PO PRN PRN PRN Reason: Hypoglycemia Insulin Glargine (Lantus) 5 unit SQ QPM [facility] Last Admin: 02/28/20 21:05 Dose: 5 unit Documented by: Insulin Human Lispro (Humalog) 0 unit SQ ACHS [facility]; Protocol Last Admin: 02/28/20 21:05 Dose: 3 unit Documented by: Lactobacillus Rhamnosus (Culturelle) 1 cap PO BID [facility] Last Admin: 02/28/20 21:06 Dose: 1 cap Documented by: Loperamide HCl (Imodium) 2 mg PO PRN PRN PRN Reason: Diarrhea Last Admin: 02/28/20 11:15 Dose: 2 mg Documented by: Melatonin (Melatonin 3mg Tablet) 6 mg PO HSP PRN PRN Reason: Insomnia Last Admin: 02/28/20 22:31 Dose: 6 mg Documented by: Metoprolol Tartrate (Lopressor) 12.5 mg PO BID [facility] Last Admin: 02/28/20 21:06 Dose: 12.5 mg Documented by: Metronidazole (Flagyl) 500 mg PO Q8H [facility]; Protocol Last Admin: 02/29/20 05:23 Dose: 500 mg Documented by: Morphine Sulfate (Morphine) 2 mg IV Q4HP PRN; Protocol PRN Reason: Per Pain Protocol Last Admin: 02/25/20 09:48 Dose: 2 mg Documented by: Mupirocin (Bactroban Oint 2%) 1 dose NARES BID [facility] Last Admin: 02/28/20 21:07 Dose: 1 dose Documented by: Ondansetron HCl (Zofran) 4 mg IV Q6HP PRN PRN Reason: Nausea And Vomiting Pantoprazole Sodium (Protonix) 40 mg PO QAMAC [facility] Last Admin: 02/28/20 07:20 Dose: 40 mg Documented by: Prochlorperazine (Compazine) 5 mg IV Q6HP PRN PRN Reason: Nausea And Vomiting Last Admin: 02/26/20 13:56 Dose: 5 mg Documented by: Senna (Senokot) 2 tab PO HS [facility] Last Admin: 02/28/20 21:10 Dose: Not Given Documented by: Sodium Chloride (Saline Flush) 10 ml IV Q8 [facility] Last Admin: 02/29/20 05:23 Dose: 10 ml Documented by: Torsemide (Demadex) 20 mg PO QDAY [facility] Last Admin: 02/28/20 10:25 Dose: 20 mg Documented by: Tramadol HCl (Ultram) 50 mg PO Q6HP PRN; Protocol PRN Reason: Pain Last Admin: 02/28/20 22:31 Dose: 50 mg Documented by: A/P Narrative A/P Narrative: A: *Acute and chronic hypoxic respiratory failure: -on 2L oxymask (wears 2L NC@home) *Pneumonia, HCA/CAP/Aspiration from N/V?: stable -CT chest with Large alveolar infiltrate throughout posterior RLL, Mod RUL/RML, Large alveolar infiltrate LLL -Blood culture no growth / Sputum culture pending, MRSA screen positive - decolonization -ST eval unremarkable *Acute gastroenteritis(Diarrhea remains): -Stool studies including c. diff Negative *earlier imaging concerning for partial SBO: f/u small bowel follow through no SBO or ileus *Pancytopenia including Neutropenia/severe thrombocytopenia: 2/ CA/Chemo -Spoke to her oncologist Dr. Torre ([phone]) who suggested 2 units leuko-poor irradiated transfusion -He will see patient early next week -PLTS <9<13<24<34<51. 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 transfuse platelets -Continue home Lantus 5 units daily, SSI, Glipizide is on hold -monitor CBC -restarted home torsemide -seen by mercedes MCLAUGHLIN issues -home cpap -Electrolyte replacement prn -replace potassium with IV since not absorbing oral given diarrhea -d/c with oral kcl (Klor-con) and f/u lab outpt -patient would like to be referred to GI after discharge -ppx: On Xarelto (held for thrombocytopenia, consider half-dose if between 30-50 and trending up given cancer), SCD/home ppi CODE STATUS: Learning Operations Specialist Spent With Patient Time: Total time spent is greater than 50% in coordination of care (as documented) at patient's floor/unit and/or counseling patient: QUALITY VTE Deep Vein Thrombosis/Pulmonary Embolism Present on Admission: No
[2020-02-29] MEDS ORDERED: DIPHENOXYLATE HCL/ATROPINE 1 TABLET PO ONE (08:02)
[2020-02-29] MEDS: INSULIN LISPRO 1 UNIT/0.01 ML UNIT SQ SCH ×4 (08:22→20:56)
[2020-02-29] MEDS: PANTOPRAZOLE 40 MG TABLET PO SCH (08:22)
[2020-02-29] MEDS: MUPIROCIN OINT 2% 22GM NARES SCH ×2 (08:23→09:06)
[2020-02-29] MEDS: METOPROLOL TARTRATE 25 MG TABLET PO SCH ×2 (08:23→20:57)
[2020-02-29] MEDS: DOCUSATE SODIUM 100 MG CAPSULE PO SCH ×2 (08:23→20:58)
[2020-02-29] MEDS: LACTOBACILLUS 1 CAPSULE PO SCH ×2 (08:23→20:57)
[2020-02-29] MEDS: TORSEMIDE 10 MG TABLET PO SCH (08:23)
[2020-02-29] MEDS: DEXAMETHASONE 4 MG TABLET PO SCH (08:23)
[2020-02-29] MEDS: CEFEPIME 2 GM VIAL IV SCH ×2 (08:24→20:58)
[2020-02-29] MEDS: traMADol 50 MG TABLET PO PRN ×3 (08:32→20:57)
[2020-02-29 08:43] LABS: ALT/SGPT 32 U/L (<40); AST/SGOT 15 U/L (<32); Albumin 2.7 gm/dL (3.2-5.2); Albumin/Globulin Ratio 0.9 (1.0-2.3); Alkaline Phosphatase 95 U/L (39-117); Bilirubin,Direct < 0.2 mg/dL (<0.3); Bilirubin,Total 0.4 mg/dL (0.1-1.0); Blood Urea Nitrogen 16 mg/dL (6-20); Calcium 8.1 mg/dL (8.6-10.4); Carbon Dioxide 20 mmol/L (22-30); Chloride 97 mmol/L (96-108); Glomerular Filtration Rate 87; Glucose 101 mg/dL (70-105); Lactate Dehydrogenase 353 U/L (135-225); Phosphorous 2.8 mg/dL (2.5-4.5); Triglycerides 294 mg/dL (<150); Uric Acid 3.2 mg/dL (2.5-8.0)
[2020-02-29] MEDS ORDERED: POTASSIUM CHLORIDE 40 MEQ in DEXTROSE 5% IN WATER 500 ML IV ONE (09:46)
[2020-02-29 11:19] LABS: Band Neutrophils % 1 % (0-10); Hematocrit 27.6 % (36.0-48.0); Hemoglobin 9.8 g/dL (12.0-15.0); Lymphocytes % 64 % (15-49); Mean Cell Volume 84.4 fL (80.0-100.0); Mean Corpuscular HGB Conc 35.5 g/dL (31.0-36.0); Mean Platelet Volume 10.1 fL (7.4-10.4); Metamyelocytes % 1 %; Monocytes % (Manual) 2 % (1-12); Platelet Count 30 K/mcL (140-440); Platelet Estimate MARKEDLY DECREASED (Normal); RBC 3.27 M/mcL (4.00-5.20); RBC Morphology NORMAL (Normal); Red Cell Distribution Width 16.1 % (11.5-14.5); Segmented Neutrophils % 32 % (38-78); WBC 3.5 K/mcL (4.5-11.0)
[2020-02-29 19:50] LABS: Platelet Count 37 K/mcL (140-440)
[2020-02-29] MEDS: INSULIN GLARGINE, HUMAN 1 UNIT/0.01 ML SQ SCH (20:57)
[2020-02-29] MEDS: SENNOSIDES 1 TABLET PO SCH (20:58)
[2020-02-29] MEDS: ONDANSETRON 4 MG/2 ML VIAL IV PRN (21:11)
[2020-03-01] MEDS: metroNIDAZOLE 500 MG TABLET PO SCH ×2 (06:15→14:16)
[2020-03-01] MEDS: 0.9 % SODIUM CHLORIDE 10 ML SYRINGE IV SCH ×2 (06:15→12:45)
[2020-03-01 07:05] LABS: ALT/SGPT 37 U/L (<40); AST/SGOT 14 U/L (<32); Albumin 2.9 gm/dL (3.2-5.2); Alkaline Phosphatase 104 U/L (39-117); Bilirubin,Total 0.4 mg/dL (0.1-1.0); Blood Urea Nitrogen 26 mg/dL (6-20); Calcium 8.2 mg/dL (8.6-10.4); Carbon Dioxide 21 mmol/L (22-30); Chloride 94 mmol/L (96-108); Glomerular Filtration Rate 75; Glucose 142 mg/dL (70-105)
[2020-03-01] MEDS ORDERED: POTASSIUM CHLORIDE 20 MEQ in DEXTROSE 5% IN WATER 250 ML IV ONE (07:12)
[2020-03-01] MEDS: DOCUSATE SODIUM 100 MG CAPSULE PO SCH (07:23)
[2020-03-01] MEDS: LACTOBACILLUS 1 CAPSULE PO SCH (07:51)
[2020-03-01] MEDS: DEXAMETHASONE 4 MG TABLET PO SCH (07:52)
[2020-03-01] MEDS: METOPROLOL TARTRATE 25 MG TABLET PO SCH (07:53)
[2020-03-01] MEDS: CEFEPIME 2 GM VIAL IV SCH (07:54)
[2020-03-01] MEDS: PANTOPRAZOLE 40 MG TABLET PO SCH (07:54)
[2020-03-01] MEDS ORDERED: POTASSIUM CHLORIDE 20 MEQ/15 ML ML PO SCH ×2 (08:00→17:30)
[2020-03-01] MEDS: traMADol 50 MG TABLET PO PRN ×2 (08:29→14:16)
[2020-03-01] MEDS: INSULIN LISPRO 1 UNIT/0.01 ML UNIT SQ SCH ×3 (08:30→17:32)
[2020-03-01] MEDS: ONDANSETRON 4 MG/2 ML VIAL IV PRN (09:05)
[2020-03-01] MEDS: DIPHENOXYLATE HCL/ATROPINE 1 TABLET PO PRN ×2 (09:08→15:03)
[2020-03-01] MEDS: LOPERAMIDE 2 MG CAPSULE PO PRN ×2 (09:08→15:04)
[2020-03-01 09:56] LABS: Basophils # (Auto) 0.01 K/mcL (0.00-0.20); Basophils % (Auto) 0.3 % (0.0-2.0); Eosinophils # (Auto) 0 K/mcL (0.00-0.70); Eosinophils % (Auto) 0 % (0.0-7.0); Hematocrit 30.2 % (36.0-48.0); Hemoglobin 10.7 g/dL (12.0-15.0); Lymphocytes # (Auto) 1.86 K/mcL (1.50-4.80); Lymphocytes % (Auto) 52.7 % (15.0-49.0); Mean Cell Volume 83.2 fL (80.0-100.0); Mean Corpuscular HGB Conc 35.4 g/dL (31.0-36.0); Mean Platelet Volume 10.4 fL (7.4-10.4); Monocytes # (Auto) 0.05 K/mcL (0.10-0.90); Monocytes % (Auto) 1.4 % (1.0-12.0); Neutrophils % (Auto) 45.6 % (38.0-78.0); Platelet Count 29 K/mcL (140-440); RBC 3.63 M/mcL (4.00-5.20); Red Cell Distribution Width 15.8 % (11.5-14.5); WBC 3.5 K/mcL (4.5-11.0)
[2020-03-01] MEDS: POTASSIUM CHLORIDE 10 MEQ TABLET PO SCH ×2 (10:45→12:15)
[2020-03-01] MEDS: fentaNYL 12 MCG PATCH TOPICAL SCH (10:47)
[2020-03-01] MEDS: POTASSIUM CHLORIDE 20 MEQ/15 ML ML PO SCH ×2 (12:11→13:11)
[2020-03-01 15:03] LABS: Blood Urea Nitrogen 28 mg/dL (6-20); Calcium 8.3 mg/dL (8.6-10.4); Carbon Dioxide 19 mmol/L (22-30); Chloride 94 mmol/L (96-108); Glomerular Filtration Rate 66; Glucose 189 mg/dL (70-105)
[2020-03-01] MEDS ORDERED: LOPERAMIDE 2 MG CAPSULE PO PRN (15:20)
[2020-03-01] MEDS ORDERED: ONDANSETRON 4 MG ODT TABLET SL PRN (15:23)
--- NOTE | 2020-03-01 15:40 | Discharge Summary ---
Discharge Provider Provider Patient information: Note initiated : 03/01/20 at 3:27 pm Service Date, if different from initiated Date: [] Patient: Shirley Novoa 49 y/o F admitted on 02/21/20 for abdominal pain. Chief Complaint: [] Date of admission: 02/21/20 18:00 Discharge date: 03/01/20 Primary care physician: ASIYA Parra Consults: 02/21/20 Consult to Physician [CONS] Stat Comment: Consulting Provider: Mookie Mendoza Reason For Exam: Physician to Consult Discharge Meds Discharge Medications Home Medications oxygen #1 ea 01/19/20 [History Confirmed 02/22/20 Last Taken Unknown] spironolactone 25 mg tablet 25 mg PO QDAY #30 tab 01/20/20 [Rx Confirmed 02/21/20 Last Taken 02/20/20] Lantus Solostar U-100 Insulin 5 unit SUBCUT QHS 02/21/20 [History Confirmed 02/21/20 Last Taken 02/20/20] Narcan 1 spray INTRANASAL PRN PRN 02/21/20 [History Confirmed 02/21/20 Last Taken Unknown] dexamethasone 6 mg PO DAILY 02/21/20 [History Confirmed 02/21/20 Last Taken 02/20/20] ipratropium-albuterol 3 ml INHALATION Q4HP PRN 02/21/20 [History Confirmed 02/21/20 Last Taken 02/20/20] melatonin 5 mg PO HS PRN 02/21/20 [History Confirmed 02/21/20 Last Taken 02/20/20] omeprazole magnesium [[employer] (omeprazole)] 20 mg PO QDAY 02/21/20 [History Confirmed 02/21/20 Last Taken 02/20/20] oxycodone-acetaminophen 1 - 2 tab PO Q8HP PRN 02/21/20 [History Confirmed 02/21/20 Last Taken 02/20/20] docusate sodium 100 mg PO BID #30 cap 03/01/20 [Rx Last Taken Unknown] fentanyl 12 mcg TOPICAL Q72H #1 ea 03/01/20 [Rx Last Taken Unknown] insulin lispro [Humalog U-100 Insulin] See Rx Instructions .ROUTE .COMPLEX #3 ml 03/01/20 [Rx Last Taken Unknown] levofloxacin 500 mg PO Q24H #3 tab 03/01/20 [Rx Last Taken Unknown] loperamide 2 mg PO Q8H PRN #10 cap 03/01/20 [Rx Last Taken Unknown] metoprolol tartrate 12.5 mg PO BID 30 Days #30 tab 03/01/20 [Rx Last Taken Unknown] metronidazole 500 mg PO Q8H #9 tab 03/01/20 [Rx Last Taken Unknown] ondansetron 4 mg SL Q6HP PRN #12 tab 03/01/20 [Rx Last Taken Unknown] pantoprazole 40 mg PO QAMAC #20 tab 03/01/20 [Rx Last Taken Unknown] potassium chloride 15 meq PO BIDCC #300 ml 03/01/20 [Rx Last Taken Unknown] COURSE Hospital Course Hospital course: Acute and chronic hypoxic respiratory failure: -on 2L oxymask (wears 2L NC@home) *Pneumonia, HCA/CAP/Aspiration from N/V?: stable -CT chest with Large alveolar infiltrate throughout posterior RLL, Mod RUL/RML, Large alveolar infiltrate LLL -Blood culture no growth / Sputum culture pending, MRSA screen positive -decolonization -ST eval unremarkable *Acute gastroenteritis(Diarrhea remains): -Stool studies including c. 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 -Follow with PCP and oncologist *Hypokalemia: 2/2 diarrhea *Chronic back pain from pathologic fx's: *Hx of PE on chronic anticoagulation: on Xarelto @home. Discussed with Dr. Torre, Xarelto is on hold due to severe thrombocytopenia. Pt and fully understood the risk and benefits of Xarelto. 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 Novoa is a 49 year old F with a past medical history of metastatic lung cancer, history of pulmonary embolisms, and COPD who presented to the ER due to abdominal pain and diarrhea x 2 days. As per patient and , she started to have upper abdominal pain associated with nausea, vomiting, and diarrhea. The pain is constant, sharp in nature and 4-8 out of 10 in severity. No radiation. She has been having 4-5 times bowel movements a day with the very loose yellow stool. Patient got pneumonia 3 weeks ago for which patient was hospitalized to [facility] in [place] for 2 weeks. Over there she was given IV antibiotics. She was just discharged to home last week. She was diagnosed with metastatic non-small cell lung cancer in October 2019. She received chemotherapy recently. In the ER, chest x-ray showed bilateral pneumonia. When I saw this patient in the ER, other than the symptoms mentioned above, she also complained of fatigue. Otherwise she denied headache, dizziness, chest pain, dysuria, or changes in vision. 02/21 Patient still feels tired but better than yesterday. Denies fever, chills. Patient still has diarrhea. Patient had one bowel movement with loose stool this morning. C. difficile negative Tachycardia >100. WBC 0.5, platelet 51 MRSA screen positive -precaution contact and decolonization 02/22 Today patient feels much better, stronger. Less abdominal pain. She had one b owel movement this morning. Vital signs are stable and acceptable. She is on room air to 2 L oxygen. She has been home oxygen 2 L. White blood cells 0.5, red blood cells of 2.26, platelets 34. Potassium 3.0, Hemoglobin A1c 8.2 MRSA screen was positive -isolation contact, decolonization protocol. Spoke to her oncologist Dr. Torre ([phone]) who suggested to give her 2 units of leuko-poor irradiated transfusion. He will see patient early next week. 02/23 Complains of more abdominal pain associated with n. She has poor appetite and does not want to eat. On oxygen via aerosol mask wbc 1.1, Hb 9.8, plt 24, K2.[address] abd Spoke to oncologist Dr. Torre felt that she does not need plts transfusion at the level unless she has bleeding. 02/24 Abdominal pain improving yesterday and today. No new complaints. Her platelets have dropped to 13. She has no bleeding. Patient states she had a shrimp salad from [employer] and it was after that that she start developing nausea vomiting diarrhea. Last had chemotherapy little week ago she says. 02/25 States had several episode of diarrhea this morning. No new complaints. Still feels tired. Platelets dropped again will receive transfusion. Continue potassium replacement. Follow-up bowel follow-through to assess for partial small bowel obstruction. 02/26 Diarrhea seems to be thickening up. Patient obviously not absorbing oral potassium as she had refused IV in the past and will need to return to IV supplementation. She received platelet transfusion yesterday for platelets of 9000. No active bleeding. No new complaints overnight. Small bowel follow-through with no obstruction yesterday. 02/27 Patient had decreased frequency of diarrhea last night and per nursing seems to be thickening up a little bit. No new pains or complaints. Awaiting laboratory. 02/28 Patient slept better last night. 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 Just had 1 more this morning. Diarrhea frequency improving. Awaiting follow-up labs. 03/01 Patient still complains of tired, nausea, and diarrhea which seems to be improved. discussed with the patient and that the symptoms could be related to chemotherapy and malignancy. Patient vital signs are stable and acceptable. Hemoglobin 10.7, white blood cells of 3.5, platelets of 29, potassium of 3.0. Discussed with her oncologist Dr. Torre yesterday afternoon who felt patient can be discharged to home without antibiotics. Pt has an appointment on 03/05. Patient will be discharged to home with home health. Patient needs to repeat CBC and electrolytes in 3 days. Patient needs to see PCP in 3 days and oncologist Nicho early next week. I will discharge patient on oral antibiotics for 3 days and potassium. Please drink more fluids to keep well hydrated. Call PCP and oncologist for medical issues. Discharge diagnosis: Acute and chronic hypoxic respiratory failure, pneumnia, lung cancer Time Spent with Patient Time attestation: Total time spent providing and/or coordinating discharge services: EXAM Constitutional Vitals: Temp Pulse Resp BP Pulse Ox 97.0 F 104 H 16 126/86 94 03/01/20 13:16 03/01/20 13:16 03/01/20 13:16 03/01/20 13:16 03/01/20 13:16 Additional findings Additional findings: General: Alert, Awake, No acute Distress, obese Eyes/N/T: EOMI, Head/Neck: neck supple, CV: RRR, No murmurs, Pulm: diminished b/l, no wheezing Abd: soft, notender, +BS x4 Ext: no clubbing/cyanosis Neuro: Alert, no focal deficits, moves all extremities, Skin: warm/dry Discharge Data Data Completed and Pending Labs on day of discharge: Labs from last 24 hours 03/01/20 03/01/20 03/01/20 14:04 04:50 04:50 WBC 3.5 L RBC 3.63 L Hgb 10.7 L Hct 30.2 L MCV 83.2 MCH 29.5 MCHC 35.4 RDW 15.8 H Plt Count 29 L* MPV 10.4 Neut % (Auto) 45.6 Lymph % (Auto) 52.7 H [place] % (Auto) 1.4 Eos % (Auto) 0 Baso % (Auto) 0.3 Lymph # (Auto) 1.86 [place] # (Auto) 0.05 L Eos # (Auto) 0 Baso # (Auto) 0.01 Sodium 129 L 130 L Potassium 3.0 L 2.9 L* Chloride 94 L 94 L Carbon Dioxide 19 L 21 L Anion Gap 16.0 15.0 BUN 28 H 26 H Creatinine 1.0 0.9 GFR Calculation 66 75 Glucose 189 H 142 H Calcium 8.3 L 8.2 L Total Bilirubin 0.4 AST 14 ALT 37 Alkaline Phosphatase 104 Total Protein 5.9 Albumin 2.9 L Globulin 3.0 Albumin/Globulin Ratio 1.0 Abs Neutrophil Control 1.61 L 02/28/20 08:42 WBC RBC Hgb Hct MCV MCH MCHC RDW Plt Count 37 L* MPV Neut % (Auto) Lymph % (Auto) [place] % (Auto) Eos % (Auto) Baso % (Auto) Lymph # (Auto) [place] # (Auto) Eos # (Auto) Baso # (Auto) Sodium Potassium Chloride Carbon Dioxide Anion Gap BUN Creatinine GFR Calculation Glucose Calcium Total Bilirubin AST ALT Alkaline Phosphatase Total Protein Albumin Globulin Albumin/Globulin Ratio Abs Neutrophil Control Discharge Plan Patient/Caregiver Discharge Instructions Activity: increase activity as tolerated Diet: Consistent Carbohydrate Instructions: Diphenoxylate/Atropine (By mouth), Potassium Chloride (By mouth), Potassium Content of Foods List (GEN), Neutropenic Precautions (GEN), Pneumonia (GEN) Activity Restrictions/Additional Instructions: Patient needs to repeat CBC and electrolytes in 3 days. Patient needs to see PCP in 3 days and oncologist Nicho early next week. oral antibiotics for 3 days and potassium. Please drink more fluids to keep well hydrated. Call PCP and oncologist for medical issues. [facility] will contact you after discharge. If you have any questions call This discharge packet is provided to you to help keep you informed about your ca re. We want to ensure you get everything you need when you go home. You will also be receiving a call from us in a few days to follow up with you and see how you are doing since your discharge. This gives us a chance to listen to any concerns you maybe experiencing since you were discharged or any additional needs you may have, as well as providing us feedback on your care experience. We strive to always provide excellent care and thank you for your feedback and for choosing [facility]. Prescriptions: New docusate sodium 100 mg Capsule 100 mg PO BID Qty: 30 RF: 0 insulin lispro [Humalog U-100 Insulin] 100 unit/mL Solution See Rx Instructions .ROUTE .COMPLEX Qty: 3 RF: 0 fentanyl 12 mcg/hr Patch 72 Hour 12 mcg topical Q72H Qty: 1 RF: 0 loperamide 2 mg Capsule 2 mg PO Q8H PRN (Reason: Diarrhea) Qty: 10 RF: 0 metronidazole 500 mg Tablet 500 mg PO Q8H Qty: 9 RF: 0 potassium chloride 20 mEq/15 mL Liquid 15 meq PO BIDCC Qty: 300 RF: 0 pantoprazole 40 mg Tablet,Delayed Release (Dr/Ec) 40 mg PO QAMAC Qty: 20 RF: 0 ondansetron 4 mg Tablet,Disintegrating 4 mg SL Q6HP PRN (Reason: Nausea And Vomiting) Qty: 12 RF: 0 metoprolol tartrate 25 mg Tablet 12.5 mg PO BID 30 Days Qty: 30 RF: 0 levofloxacin 500 mg tablet 500 mg PO Q24H Qty: 3 RF: 0 Continued spironolactone 25 mg tablet 25 mg PO QDAY Qty: 30 RF: 0 dexamethasone 4 mg tablet 6 mg PO DAILY RF: 0 Lantus Solostar U-100 Insulin 100 unit/mL (3 mL) Insulin Pen 5 unit SUBCUT QHS RF: 0 melatonin 5 mg Tablet 5 mg PO HS PRN (Reason: Insomnia) RF: 0 omeprazole magnesium [[employer]id [employer] (omeprazole)] 20 mg Capsule,Delayed Release(Dr/Ec) 20 mg PO QDAY RF: 0 oxycodone-acetaminophen 5-325 mg tablet 1 - 2 tab PO Q8HP PRN (Reason: Pain) RF: 0 Narcan 4 mg/actuation spray,non-aerosol 1 spray INTRANASAL PRN PRN (Reason: Opioid Reversal) RF: 0 Discontinued Xarelto 20 mg tablet 20 mg PO QPMCC RF: 0 glipizide 5 mg Tablet 5 mg PO QAMAC RF: 0 insulin lispro 100 unit/mL Insulin Pen 6 unit SUBCUT TIDCC RF: 0 torsemide 20 mg Tablet 20 mg PO QDAY RF: 0 hydroxyzine HCl 25 mg Tablet 25 mg PO Q6HP PRN (Reason: Anxiety) RF: 0 No Action (DME) oxygen Qty: 1 RF: 0 ipratropium-albuterol 0.5 mg-3 mg(2.5 mg base)/3 mL Solution For Nebulization 3 ml INHALATION Q4HP PRN (Reason: Shortness Of Breath) RF: 0 Other Ambulatory Orders: Complete Blood Count (Routine) Timeframe: 3 Days Facility: [facility] - Location: Laboratory Ordered By: Mookie Mendoza Comprehensive Metabolic Panel (Routine) Timeframe: 3 Days Facility: [facility] - Location: Laboratory Ordered By: Mookie Mendoza Magnesium (Routine) Timeframe: 3 Days Facility: [facility] - Location: Laboratory Ordered By: Mookie Mendoza Phosphorous (Routine) Timeframe: 3 Days Facility: [facility] - Location: Laboratory Ordered By: Mookie Mendoza Follow Up Plan Follow up with: Ky Torre [Referring] - 03/05/20 2:15 pm Deepali Trotter ARNP [Primary Care Provider] - 03/06/20 2:30 pm Patient Disposition: Home Health Service Prognosis: Undetermined Discharge Orders: Discharge Order (Routine); Ordered 03/01/20 Ordered By: Mookie DE PAZ VTE Deep Vein Thrombosis/Pulmonary Embolism Present on Admission: No
== END 2020-03-01 17:30 | disposition home health service (06) | DRG 189 ==
LOC: ED 09:50 → MEDSUR 18:00 → ICU 02-23 19:00
PROVIDERS: ADMIT Internal Medicine; ATTEND Internal Medicine